=== PATIENT | female | born 1970 | race Caucasian/White ===

== ENCOUNTER → 2019-09-07 17:52 | Outpatient (CLI) | payer OTHER, SELFPAY ==
--- NOTE | ~2019-09-07 | MM_ITS ---
EXAMINATION: MM screening [facility] BI w adalgisa HISTORY: Screening mammogram TECHNIQUE: Craniocaudal and mediolateral oblique 3-D tomosynthesis images were obtained and synthetic 2-D images were generated. CAD analysis was submitted and interpreted. COMPARISON: Comparison to multiple prior studies sequentially, with oldest reviewed study dated 09/2013. BREAST PARENCHYMAL COMPOSITION: The breasts are heterogenously dense, which may obscure small masses FINDINGS: There is no evidence of suspicious mass, calcification, or architectural distortion to sugg est malignancy in either breast. There has been no suspicious interval change. IMPRESSION: 1. No mammographic evidence of malignancy. 2. Recommend routine screening mammography in one year. BI-RADS Category 1: Negative Reviewed, dictated and finalized at location A.
== END ==
PROVIDERS: Visit Provider Obstetrics & Gynecology
DX: Z12.31 Encounter for screening mammogram for malignant neoplasm of breast (principal)
CPT/HCPCS: 77063; 77067

== ENCOUNTER → 2020-11-03 15:32 | Outpatient (CLI) | payer OTHER, SELFPAY ==
--- NOTE | ~2020-11-03 | MM_ITS ---
EXAMINATION: MM screening [facility] BI w adalgisa HISTORY: Screening mammogram TECHNIQUE: Craniocaudal and mediolateral oblique 3-D tomosynthesis images were obtained and synthetic 2-D images were generated. CAD analysis was submitted and interpreted. COMPARISON: 08/09/2019, 08/05/2018, 05/06/2017 BREAST PARENCHYMAL COMPOSITION: The breasts are heterogeneously dense, which may obscure small masses . FINDINGS: There is no evidence of suspicious mass, calcification, or architectural distortion to sugg est malignancy in either breast. There has been no suspicious interval change. IMPRESSION: 1. No mammographic evidence of malignancy. 2. Recommend routine screening mammography in one year. BI-RADS Category 1: Negative Reviewed, dictated and finalized at location A.
== END ==
PROVIDERS: Visit Provider Obstetrics & Gynecology
DX: Z12.31 Encounter for screening mammogram for malignant neoplasm of breast (principal)
CPT/HCPCS: 77063; 77067

== ENCOUNTER 2021-04-12 01:45 | Day surgery (SDC) | payer OTHER, SELFPAY ==
[2021-04-04 11:56] VITALS: BMI 25.1
--- NOTE | 2021-04-11 09:35 | WPDANESEPPF ---
Anes - Initial Pre Proc Eval Procedure: Operation Date: 04/12/21 07:30 Proposed Procedures p Screening Colonoscopy - Adrian Garcia MD Date/Time: 04/11/21 09:35 Surgeon: Adrian Garcia MD Pre Op Diagnosis: neoplasm screening Patient Data Age: 51 Gender: F Height: 1.78 m Weight: 79.5 kg Allergies Allergy/AdvReac Type Severity Reaction Status Date / Time No Known Allergies Allergy Unknown Verified 04/12/21 06:17 Home Medications Medication Instructions Recorded Confirmed Type zhaogqqsle-nvxbokhfrbadp-inbt 1 cap PO Q4-6H PRN 04/04/21 04/04/21 History [Fioricet] diclofenac sodium 150 mg PO DAILY 04/04/21 04/04/21 History escitalopram oxalate 10 mg PO DAILY 04/04/21 04/04/21 History estradiol 1 mg PO DAILY 04/04/21 04/04/21 History etanercept [Enbrel] 50 mg SUBCUT WEEKLY 04/04/21 04/04/21 History hydroxychloroquine 200 mg PO DAILY 04/04/21 04/04/21 History sulfasalazine 1,000 mg PO BID 04/04/21 04/04/21 History Patient hx anesthesia problems: none Family hx anesthesia problems: none Results Review: All pre-operative results and documents have been reviewed as part of the pre-operative evaluation. [facility] Past Medical History Medical History (Updated 04/11/21 @ 15:22 by Adrian Garcia MD) History of ulcer disease Rheumatoid arthritis Social History Social History Smoking status: Never smoker Alcohol intake: current Drinks per week: 1 Alcohol use details: occasional 2x month Substance use: never Substance use type: does not use Living arrangements: with family Additional living arrangements comments: lives with spouse Spiritual care concerns: No Anes - Eval Final PreProcedure Day of Procedure 04/11/21 09:35 Patient weight: overweight Heart: regular rate and rhythm Lungs: clear to auscultation and normal air movement Airway: Mallampati scale class II Neurological: alert and oriented Last oral intake: >/= 8 hours ASA classification: II Emergent: no Anesthetic plan: proceed Anesthesia type and monitoring: general GIVS and standard monitoring Results Review: All pre-operative results and documents have been reviewed as part of the pre-operative evaluation. Informed Consent: The patient's anesthetic plan and its attendant risks and benefits were discussed with the patient/family/POA. Questions were solicited and answers provided to the satisfaction of the patient/family/POA.
--- NOTE | 2021-04-11 15:21 | PM.HPGS ---
History of Present Illness History of Present Illness Consent: Risks, benefits, and alternatives have been discussed and questions answered. Patient agrees to proceed with procedure. Chief complaint: neoplasm screening Narrative: Maggie Ramos is a 51 year old female referred for colon cancer screening Review of Systems Review of Systems: All systems reviewed & are unremarkable except as noted in HPI and below PMFSH Past Medical History Medical History History of ulcer disease Rheumatoid arthritis Social History Social History Smoking status: Never smoker Alcohol intake: current Drinks per week: 1 Alcohol use details: occasional 2x month Substance use: never Substance use type: does not use Living arrangements: with family Additional living arrangements comments: lives with spouse Spiritual care concerns: No Meds Home Medications and Allergies Home Medications Medication Instructions Recorded Confirmed Type hyqkfrywzm-edgsfmvdljcyp-tijc 1 cap PO Q4-6H PRN 04/04/21 04/04/21 History [Fioricet] diclofenac sodium 150 mg PO DAILY 04/04/21 04/04/21 History escitalopram oxalate 10 mg PO DAILY 04/04/21 04/04/21 History estradiol 1 mg PO DAILY 04/04/21 04/04/21 History etanercept [Enbrel] 50 mg SUBCUT WEEKLY 04/04/21 04/04/21 History hydroxychloroquine 200 mg PO DAILY 04/04/21 04/04/21 History sulfasalazine 1,000 mg PO BID 04/04/21 04/04/21 History Allergies Allergy/AdvReac Type Severity Reaction Status Date / Time No Known Allergies Allergy Unknown Verified 04/12/21 06:17 Exam Resp: Auscultation: clear to auscultation bilaterally Cardio: Rate: regular rate Rhythm: regular rhythm GI: GI Palp: Yes Soft to palpation and No Tenderness to palpation present (GI) Assessment and Plan Assessment and plan (1) Colon cancer screening: Code(s): Z12.11 - Encounter for screening for malignant neoplasm of colon Status: Acute Assessment and Plan: Colonoscopy with possible biopsy or polypectomy or cautery or injection of substances.
[2021-04-12 06:17] VITALS: BP 122/85; PULSE 95; RESP 18; TEMP 36.1; O2SAT 96
[2021-04-12] MEDS: LACTATED RINGERS 1,000 ML 150 ML IV CONT (06:34)
[2021-04-12 07:48] VITALS: BP 122/96; PULSE 74; RESP 20; O2SAT 100
[2021-04-12 07:58] VITALS: BP 119/83; PULSE 75; RESP 19; O2SAT 100
[2021-04-12 08:08] VITALS: BP 129/88; PULSE 69; RESP 22; O2SAT 100
== END 2021-04-12 08:20 | disposition home or self-care (01) ==
PROVIDERS: PCP Physician Assistant; Visit Provider Internal Medicine Gastroenterology
PROC: 0DJD8ZZ Inspection of Lower Intestinal Tract, Via Natural or Artificial Opening Endoscopic (ICD-10-PCS; CPT 45378; principal; 2021-04-12 07:30)
DX: Z12.11 Encounter for screening for malignant neoplasm of colon (principal); D12.8 Benign neoplasm of rectum; M06.9 Rheumatoid arthritis, unspecified
CPT/HCPCS: 45385; 88305; J2704; J7120

== ENCOUNTER → 2022-02-05 13:47 | Outpatient (CLI) | payer OTHER, SELFPAY ==
--- NOTE | ~2022-02-05 | MM_ITS ---
EXAMINATION: MM screening [facility]iel BI w adalgisa HISTORY: Screening mammogram TECHNIQUE: Craniocaudal and mediolateral oblique 3-D tomosynthesis images were obtained and synthetic 2-D images were generated. CAD analysis was submitted and interpreted. COMPARISON: 11/03/2020, 09/07/2019, 08/05/2018 bilateral screening mammogram examinations BREAST PARENCHYMAL COMPOSITION: The breasts are heterogeneously dense, which may obscure small masses . FINDINGS: There is no evidence of suspicious mass, calcification, or architectural distortion to sugg est malignancy in either breast. There has been no suspicious interval change. IMPRESSION: 1. No mammographic evidence of malignancy. 2. Recommend routine screening mammography in one year. BI-RADS Category 1: Negative Reviewed, dictated and finalized at location A.
== END ==
PROVIDERS: PCP Physician Assistant; Visit Provider Obstetrics & Gynecology
DX: Z12.31 Encounter for screening mammogram for malignant neoplasm of breast (principal)
CPT/HCPCS: 77063; 77067

== ENCOUNTER → 2023-06-03 15:46 | Outpatient (CLI) | payer OTHER, SELFPAY ==
--- NOTE | ~2023-06-03 | MM_ITS ---
EXAMINATION: MM screening [facility]iel BI w adalgisa HISTORY: Screening TECHNIQUE: Craniocaudal and mediolateral oblique 3-D tomosynthesis images were obtained and synthetic 2-D images were generated. CAD analysis was submitted and interpreted. COMPARISON: Comparison to multiple prior studies sequentially, with oldest reviewed study dated 04/24. BREAST PARENCHYMAL COMPOSITION: The breasts are heterogeneously dense, which may obscure small masses . FINDINGS: There is no evidence of suspicious mass, calcification, or architectural distortion to sugg est malignancy in either breast. There has been no suspicious interval change. IMPRESSION: 1. No mammographic evidence of malignancy. 2. Recommend routine screening mammography in one year. BI-RADS Category 1: Negative Reviewed, dictated and finalized at location A. 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
== END ==
PROVIDERS: PCP Obstetrics & Gynecology; Visit Provider Obstetrics & Gynecology
DX: Z12.31 Encounter for screening mammogram for malignant neoplasm of breast (principal)
CPT/HCPCS: 77063; 77067

== ENCOUNTER 2024-06-05 15:51 | Outpatient (CLI) | payer OTHER, SELFPAY ==
--- NOTE | ~2024-06-05 | MM_ITS ---
EXAMINATION: MM screening [facility]iel BI w adalgisa HISTORY: Screening TECHNIQUE: Craniocaudal and mediolateral oblique 3-D tomosynthesis images were obtained and synthetic 2-D images were generated. CAD analysis was submitted and interpreted. COMPARISON: Comparison to multiple prior studies sequentially, with oldest reviewed study dated 04/24. BREAST PARENCHYMAL COMPOSITION: Dense: The breasts are extremely dense, which lowers the sensitivity of mammography. FINDINGS: There is no evidence of suspicious mass, calcification, or architectural distortion to sugg est malignancy in either breast. There has been no suspicious interval change. IMPRESSION: 1. No mammographic evidence of malignancy. 2. Recommend routine screening mammography in one year. BI-RADS Category 1: Negative Reviewed, dictated and finalized at location B. 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
== END 2024-06-05 15:52 | disposition home or self-care (01) ==
LOC: MICIMG 15:53
PROVIDERS: PCP Physician Assistant; Visit Provider Obstetrics & Gynecology
DX: Z12.31 Encounter for screening mammogram for malignant neoplasm of breast (principal)
CPT/HCPCS: 77063; 77067

== ENCOUNTER 2024-09-16 19:58 | Emergency (ER) | payer OTHER, SELFPAY ==
[2024-09-16 20:00] VITALS: BP 107/73; PULSE 111; RESP 15; TEMP 36.4; O2SAT 100
--- OUTSIDE RECORDS SUMMARY | 2024-09-16 20:01 | XMS_ITS | Encounter Summary ---
Author Organization [facility] Address [address] [place] [address] Phone Care Team Providers Care Buckle Strap Drum Operator Name Role Phone Aniya Kennedy Primary Care Pr ovider Reason for Referral * Consultation (Routine) - Pending Review Specialty Diagnoses / Procedures Referred By Demian t Referred To Contact Vascular Surgery Diagnoses Preop examination Lumbar radiculopathy Junaid Anderson MD [address] [facility] [place] [address] Phone: tel: fax: Junaid Christopher MD [address] [facility] [id number] [place] [address] Phone: tel: fax: Referral ID Status Reason Start Date Expiration Date Visits Requested Visits Authorized [id number] Pending Review Specialty Services Required 09/15/2024 10/15/2025 1 1 Question Answer Please select the performing region: [facility] (All Locations) [[id number]] To provider: JUNAID CHRISTOPHER [[id number]] # of visits: 1 Comments Referral for preop examination. Pt scheduled for L5-S1 ALIF on 11/03 at [facility] Reason for Visit * Reason Onset Date Comments Spinal Surgery 09/02/2024 Encounter Details Date Type Department Care Team (Late st Contact Info) Description 09/02/2024 Telephone [facility] Orthopaedic Surgery [address] [facility] 6[address] [place] [address] [place] [address] Junaid Anderson MD [address] [facility] [address] [place] [address] Spinal Surgery Social History Tobacco Use Types Packs/Day Years Used Date Smoking Tobacco: Never AUDIT-C Answer Date Recorded Q1: How often do you have a drink containing alc ohol? 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 Pt aware that she will be called by vascular surgery to schedule preop appt. Info sent via zkipster as well. * Telephone Encounter - Tori Brian RN - 09/14/2024 5:58 PM CDT Spoke with pt today to confirm 11/[address] Christopher. Will confirm preop appts tomorrow. * Telephone Encounter - Tori Brian RN - 09/11/2024 5:40 PM CDT Spoke with pt today to discuss OR date with Dr. Anderson and vascular surgery. Informed her that I am waiting to confirm if surgery dates are available the week of 11/02. Contacted vascular surgery schedulers again today and am waiting to hear back. Left pt VM this evening informing her that I am still waiting to confirm vascular surgery availability week of 11/02. Informed her that I will contact her Saturday afternoon to confirm a surgery date. Apologized to pt for the delay. * Telephone Encounter - Marycarmen Wagner RN - 09/07/2024 1:12 PM CDT Returned call to patient from Saturday message left on vm. Pt is aware of the current date but was hoping for a sooner one. She was reminded about the coordination with another surgeon and that it can be difficult to get sooner dates. Informed her the message would be given to Tori to review. She v erbalized understanding. * Telephone Encounter - Tori Brian RN - 09/04/2024 4:27 PM CDT Left VM for pt informing her still waiting to confirm sooner surgery dates with vascular. Tentatively have her down for surgery on 11/17 at [facility]. Will follow up with pt on Sat when I return to discuss other possible OR dates. * Telephone Encounter - Tori Brian RN - 09/02/2024 5:45 PM CDT Spoke with pt offer possible OR date with vascular surgery assistance. Pt has daughter's college grad a few weeks after offered OR date. Working to coordinate other OR date in mid October if possible. Informed pt I'm waiting to confirm new dates with vascular surgery and will have an update for her before the end of the week. She is in agreement with plan. documented in this encounter Plan of Treatment Upcoming Encounters Date Type Department Care Team (Latest Contact Info) Description 11/03/2024 1:35 PM CDT Hospital Encounter [facility] [address] Room [address] [place] [address] Junaid Anderson MD [address] [facility] [address] [place] [id number] 11/03/2024 1:35 PM CDT - 11/03/2024 7:35 PM CDT Surgery [facility] [address] [place] [address] Junaid Anderson MD [address] [place] [address] Combo Monica/Candi- FUSION SPINAL - ANTERIOR LUMBAR/THORACIC WITH INSTRUMENTATION - NUVASIVE: L5-S1 anterior lumbar interbody fusion, L5-S1 posterior spinal fusion with instrumentation, autograft, allograft, bone morphogenic protein, spinal cord monitoring, cut to close: 4 hours total-Dr. Christopher 1 hour with approach, Dr. Anderson 3 hours Scheduled Procedures Name Priority Associated Diagnoses Date/Ti me FUSION SPINAL - ANTERIOR LUMBAR/THORACIC WITH INSTRUMENTATION - NUVASIVE Lumbar radiculopathy Spinal stenosis of lumbar region, unspecified whether neurogenic claudication present 11/03/2024 1:35 PM CDT FUSION SPINAL - POSTERIOR LUMBAR/THORACIC WITH INSTRUMENTATION Lumbar radiculopathy Spinal stenosis of lumbar region, unspecified whether neurogenic claudication present 11/03/2024 1:35 PM CDT BONE GRAFT WITH BONE MORPHOGENIC PROTEIN Lumbar radiculopathy Spinal stenosis of lumbar region, unspecified whether neurogenic claudication present 11/03/2024 1:35 PM CDT SPINAL CORD MONITORING Lumbar radiculopathy Spinal stenosis of lumbar region, unspecified whether neurogenic claudication present 11/03/2024 1:35 PM CDT LAPAROTOMY - SPINE EXPOSURE Lumbar radiculopathy Spinal stenosis of lumbar region, unspecified whether neurogenic claudication present 11/03/2024 1:35 PM CDT Scheduled Referrals Name Type Priority Associated Diagnoses Orde r Schedule Ambulatory referral to Vascular Surgery Outpatient Referral Routine Preop examination Lumbar radiculopathy 1 Occurrences starting 09/15/2024 until 09/15/2025 documented as of this encounter Visit Diagnoses Diagnosis Preop examination- Primary Unspecified pre-operative examination Lumbar radiculopathy Thoracic or lumbosacral neuritis or radiculitis, unspecified Lumbar radiculopathy Thoracic or lumbosacral neuritis or radiculitis, unspecified Spinal stenosis of lumbar region Lumbar radiculopathy Thoracic or lumbosacral neuritis or radiculitis, unspecified Spinal stenosis of lumbar region, unspecified whether neurogenic claudication present documented in this encounter Care Teams Buckle Strap Drum Operator Relationship Specialty Start Date End Date Aniya Kennedy PA PCP - General Physician Cloth Finishing Range Operator Chief 07/17/23 documented as of this encounter
--- OUTSIDE RECORDS SUMMARY | 2024-09-16 20:01 | XMS_ITS | Referral Summary ---
Author Organization [facility] [address] Address [address] [place] [id number] Care Team Providers Care Industrial Design Engineer Name Role Phone CarlyleVasile molinayandy LIN Primary Care Pr ovider Encounters Date Type Department Care Team Description 09/16/2024 7:15 PM CDT Office Visit [facility] at [address] [phone] Diane Courtney NP Nausea and vomiting, unspecified vomiting type (Primary Dx); Dizziness; Lightheaded 09/16/2024 Telephone [facility] Surgery [address] 1 [place] [address] Navi Christopher MD 09/02/2024 Telephone [facility] Orthopaedic Surgery [address] [address] 6th [place] [address] [place] [address] Navi Anderson MD Spinal Surgery 08/27/2024 8:30 AM STATE ARCHIVIST - 08/27/2024 11:59 PM STATE ARCHIVIST Hospital Encounter [facility] [address] [place] [address] [address] [place] [address] Lumbar radiculopathy Discharge Disposition: Discharge to home or self care 08/27/2024 9:10 AM STATE ARCHIVIST Office Visit [facility] Orthopaedic Surgery [address] [place] [address] Medical Office Building 4 [address] [place] [phone] Navi Anderson MD Lumbar radiculopathy (Primary Dx) 08/13/2024 11:20 AM STATE ARCHIVIST Ancillary Procedure [facility] Orthopaedic Surgery [address] [facility] [address] 6th [place] [address] [place] [address] 08/13/2024 11:30 AM STATE ARCHIVIST Procedure visit [facility] Orthopaedic Surgery [address] 6th [place] [address] [place] [address] Frederick Avery MD Trochanteric bursitis of left hip 08/11/2024 Orders Only [facility] Orthopaedic Surgery [address] 1st [address] [place] [address] Frederick Avery MD Trochanteric bursitis of left hip (Primary Dx) 08/11/2024 Telephone [facility] Orthopaedic Surgery [address] 1st [address] [place] [address] Frederick Avery MD 07/27/2024 1:10 PM STATE ARCHIVIST Clinical Support [facility] [address] [place] [address] Medical Office Building 2 [address] [place] [id number] Postmenopausal (Primary Dx); Screening for osteoporosis 07/27/2024 1:52 PM STATE ARCHIVIST - 07/27/2024 11:59 PM STATE ARCHIVIST Hospital Encounter [facility] [address] [place] [address] [address] [place] [phone] Bryanna Day MD Lumbar radiculopathy Discharge Disposition: Discharge to home or self care 07/22/2024 Telephone Radiology - [address] [facility] [address] [place] [address] Luisa Acosta, 07/16/2024 8:30 AM STATE ARCHIVIST - 07/16/2024 11:59 PM STATE ARCHIVIST Hospital Encounter [facility] [address] [place] [address] [address] [place] [phone] Lumbar spine pain Discharge Disposition: Discharge to home or self care 07/16/2024 8:50 AM STATE ARCHIVIST Office Visit [facility] Orthopaedic Surgery [address] [place] [address] Medical Office Building [address] [place] [phone] Navi Anderson MD Lumbar spine pain (Primary Dx); Lumbar radiculopathy; Trochanteric bursitis of left hip; Screening for osteoporosis 07/08/2024 12:36 PM STATE ARCHIVIST - 07/08/2024 11:59 PM STATE ARCHIVIST Hospital Encounter [facility] [address] [place] [address] Discharge Disposition: Discharge to home or self care from Last 3 Months Allergies No known active allergies Medications diclofenac DR (VOLTAREN) 75 mg EC tablet Take 1 tablet (75 mg total) by mouth 2 (two) times a day 07/03/2023 Active EnbreL SureClick 50 mg/mL (1 mL) pen injector 05/01/2023 Active hydroxychloroqu ine (PLAQUENIL) 200 mg tablet Take 1 tablet (200 mg total) by mouth daily 07/02/2023 Active sulfaSALAzine (AZULFIDINE) 500 mg tablet Take 2 tablets (1,000 mg total) by mouth 2 (two) times a day 05/15/2023 Active Mounjaro 10 mg/0.5 mL pen injector 07/12/2023 Active omeprazole (PriLOSEC) 40 mg capsule Take 1 capsule (40 mg total) by mouth daily Active cetirizine (ZyrTEC) 10 mg tablet Take by mouth Active Hospital, Clinic, or Other Facility Administered Medication Ordered Dose Route Frequency Start Date End Date Status ondansetron ODT (ZOFRAN-ODT) disintegrating tablet 4 mgIndications:Nausea and vomiting, unspecified vomiting type 4 mg oral Once 09/16/2024 09/17/2024 Active Active Problems Problem Noted Date Diagnosed Date Lumbar radiculopathy 09/15/2024 Spinal stenosis of lumbar region 09/15/2024 Epigastric pain 07/16/2024 Herpes zoster 07/16/2024 Acute upper respiratory infection 05/07/2023 Acute bronchitis 03/14/2023 Neck pain 04/21/2022 Rheumatoid arthritis involvi ng both hands with positive rheumatoid factor 01/14/2018 Rheumatoid arthritis 01/06/2004 Social History Tobacco Use Types Packs/Day Years Used Date Smoking Tobacco: Never Tobacco Cessation:Counseling Given: Not Answered AUDIT-C Answer Date Recorded Q1: How often do you have a drink containing alc ohol? 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 Not on file Last Filed Vital Signs Vital Sign Reading Time Taken Comments Blood Pressure 124/68 09/16/2024 7:18 PM CDT Pulse 93 09/16/2024 7:18 PM CDT Temperature 36.4 C (97.5 F) 09/16/2024 7:18 PM CDT Respiratory Rate 28 09/16/2024 7:18 PM CDT Oxygen Saturation 98% 09/16/2024 7:18 PM CDT Inhaled Oxygen Concentration - - Weight 75.3 kg (166 lb) 07/16/2024 9:05 AM STATE ARCHIVIST Height 175.3 cm (5' 9 ) 07/16/2024 9:05 AM STATE ARCHIVIST Body Mass Index 24.51 07/16/2024 9:05 AM STATE ARCHIVIST Plan of Treatment Upcoming Encounters Date Type Department Care Team (Latest Contact Info) Description 11/03/2024 1:35 PM CDT Hospital Encounter [facility] Operating Room [address] [place] [address] Navi Anderson MD [address] [facility] [place] [address] 11/03/2024 1:35 PM CDT - 11/03/2024 7:35 PM CDT Surgery [facility] Operating Room [address] [place] [address] Navi Anderson MD [address] [facility] [place] [address] Lela Anderson/Candi- FUSION SPINAL - ANTERIOR LUMBAR/THORACIC WITH INSTRUMENTATION [...] neurogenic claudication present 11/03/2024 1:35 PM CDT Procedures Procedure Name Priority Date/Time Associated Diagnosis Comments POC INFLUENZA A/B, COVID-19 ANTIGEN Routine 09/16/2024 7:34 PM CDT Nausea and vomiting, unspecified vomiting type XR SCOLIOSIS AP LAT Schedule Routine, Read Routine (OP Routine) 08/27/2024 10:15 AM STATE ARCHIVIST Lumbar radiculopathy [place] ARTHROCENTESIS ASPIR&/INJ MAJOR JT/BURSA W/US Routine 08/13/2024 11:30 AM STATE ARCHIVIST Trochanteric bursitis of left hip POCUS ASP/INJ MAJOR JOINT Schedule Routine, Read Routine (OP Routine) 08/13/2024 11:17 AM STATE ARCHIVIST Trochanteric bursitis of left hip TRANSFORAMINAL EPIDURAL INJECTION LUMBAR SACRAL FIRST LEVEL BILATERAL Schedule Routine, Read Routine (OP Routine) 07/27/2024 3:07 PM STATE ARCHIVIST Lumbar radiculopathy DEXA AXIAL SKELETON BONE DENSITY 1 OR MORE SITES Schedule Routine, Read Routine (OP Routine) 07/27/2024 1:44 PM STATE ARCHIVIST Screening for osteoporosis XR SPINE LUMBAR COMPLETE 4 OR MORE VIEWS Schedule Routine, Read Routine (OP Routine) 07/16/2024 8:45 AM STATE ARCHIVIST Lumbar spine pain NEURO MR OUTSIDE REFERENCE Routine 07/08/2024 12:36 PM STATE ARCHIVIST from Last 3 Months Results * POC Influenza A/B, COVID-19 antigen (09/16/2024 7:34 PM CDT) Influenza A Ag, POC Negative Negative [facility] Influenza B Ag, POC Negative Negative [facility] COVID-19 Ag POC Presumptive Negative Presumptive Negative, Invalid [facility] Swab 09/16/2024 7:34 PM CDT us Diane Courtney NP POINT OF CARE TEST ORDERABLES Final Result Performing Organization Address City/State/[facility] Co de Phone Number [facility] [address] [place] [address] * XR Scoliosis 2 or 3 Views (08/27/2024 10:15 AM STATE ARCHIVIST) Anatomical Region Laterality Modality Spine N/A Computed Radiogr aphy 08/27/2024 11:3 1 AM STATE ARCHIVIST Impressions 08/27/2024 11:55 AM STATE ARCHIVIST 1. No scoliotic curvature or truncal balance of the spine. 2. Multilevel degenerative disc disease, up to severe at L5-S1 Dictated by: Lj Joshi M.D. The radiology attending physician has personally reviewed this study, and had reviewed and/or edited this written report and agrees with it. Electronically signed by: Butch Jackson D.O. Narrative 08/27/2024 11:55 AM STATE ARCHIVIST EXAMINATION: XR SCOLIOSIS AP AND LATERAL HISTORY: Spondylolisthesis COMPARISON: Lumbar spine radiograph 07/16/2024 FINDINGS: No truncal balance or pelvic obliquity. No significant scoliotic curvature. Vertebral body heights are maintained. Straightening of the cervical spine. Mild stepwise anterolisthesis of C3 on C4 and of C4 of C5. Multilevel degenerative disc disease, up to severe at L5-S1. Moderate lower lumbar facet arthropathy. Procedure Note JacksonButch amorDO - 08/27/2024 EXAMINATION: XR SCOLIOSIS AP AND LATERAL HISTORY: Spondylolisthesis COMPARISON: Lumbar spine radiograph 07/16/2024 FINDINGS: No truncal balance or pelvic obliquity. No significant scoliotic curvature. Vertebral body heights are maintained. Straightening of the cervical spine. Mild stepwise anterolisthesis of C3 on C4 and of C4 of C5. Multilevel degenerative disc disease, up to severe at L5-S1. Moderate lower lumbar facet arthropathy. IMPRESSION: 1. No scoliotic curvature or truncal balance of the spine. 2. Multilevel degenerative disc disease, up to severe at L5-S1 Dictated by: Lj Joshi M.D. The radiology attending physician has personally reviewed this study, and had reviewed and/or edited this written report and agrees with it. Electronically signed by: Butch Jackson D.O. Navi Anderson MD IMG XR PROCEDURES Final Result * IL ARTHROCENTESIS ASPIR&/INJ MAJOR JT/BURSA W/US (08/13/2024 11:30 AM STATE ARCHIVIST) Narrative Frederick Avery MD - 08/13/2024 11:30 AM STATE ARCHIVIST Frederick Avery MD 08/20/2024 12:29 AM Greater trochanteric bursa injection w/ Ultrasound Guidance Performed by: Frederick Avery MD Authorized by: Frederick Avery MD Greater Trochanteric Bursa Injection: Consent Given by: Patient Site marked: the procedure site was marked Timeout: prior to procedure the correct patient, procedure, and site was verified Verbal consent obtained?: Yes Prior to the start of the procedure, verbal verification by the procedure participant(s) confirmed (as applicable): corect patient idenity; correct site/side marked and visible; agreement on the procedure to be done; correct patient positioning; an accurate procedure consent form, relevant images and results correctly labeled and displayed; any safety precautions based on clinical history and/or medication use have been addressed.: Supporting Documentation: Indications: Therapeutic benefit Procedure Details: Site: Left Greater Trochanteric Bursa Prep: patient was prepped and draped in usual sterile fashion Patient position: Supine Needle Size: 25 G Ultrasound guidance: Yes Ultrasound approach: In-plane approach Ultrasound guidance used for: Pre-procedure marking and real-time guidance Sterile ultrasound techniques: Sterile gel and sterile probe covers were used Medications: 3 mL lidocaine 10 mg/mL (1 %); 40 mg triamcinolone 40 mg/mL Patient tolerance: Patient tolerated the procedure well with no immediate complications Frederick Avery MD IN CLINIC/BEDSIDE ORDERA BLES Edited Result - Final * POCUS ASP/INJ MAJOR JOINT (08/13/2024 11:17 AM STATE ARCHIVIST) Narrative [facility] - 08/13/2024 11:17 AM STATE ARCHIVIST This procedure was performed and interpreted by the provider. Please refer to the provider's procedure/OR operative note for results. Frederick Avery MD POCUS ORDERABLES Final R esult Performing Organization Address [facility] de Phone Number [facility] * IR Transforaminal Epidural Injection Lumbar Sacral First Level Bilateral (07/27/2024 3:07 PM STATE ARCHIVIST) Narrative [facility] - 07/27/2024 3:07 PM STATE ARCHIVIST The images from this study are not interpreted by Radiology. Please refer to the physician's procedure / OR operative note. us Navi Anderson MD IMG IR PROCEDURES Final Result Performing Organization Address [facility] Co de Phone Number [facility] * DEXA Axial Skeleton Bone Density Multi Site (07/27/2024 1:44 PM STATE ARCHIVIST) Anatomical Region Laterality Modality Body N/A Radiographic Anne ging Narrative 07/28/2024 2:27 PM STATE ARCHIVIST Patient Name: Maggie Truong Date of : 1970 Date of scan: 07/27/2024 Bone mineral density was performed on a [employer] Discovery Densitometer. Based on machine cross-calibration and precision studies the least significant changes of this densitometer is 0.024 g/cm2 at the spine, 0.020 g/cm2 at the total proximal femur, and 0.014g/cm2 at the forearm. HISTORY: This is a 54 y.o. postmenopausal female with a history of rheumatoid arthritis. She reports that she has never smoked. She does not have any smokeless tobacco history on file. Currently on treatment with calcium and vitamin D, previously treated with glucocorticoids, and current complaint of back pain and leg pain. INDICATIONS: Menopause status, screening for osteoporosis, and history of glucocorticoids use. FINDINGS: BONE MINERAL DENSITY OF THE LUMBAR SPINE Bone Mineral Density (BMD) of the lumbar spine was measured from L1-L4 and the average density was calculated to be 1.100 gm/cm2. This corresponds to a T-score (standard deviations from the mean of young adults) of 0.5. There is no previous study available for comparison. BONE MINERAL DENSITY OF THE PROXIMAL FEMUR Bone Mineral Density (BMD) of the left hip total was found to be 1.070 gm/cm2. This corresponds to a T-score standard deviations from the mean of young adults of 1.0. Femoral neck is 0.881 gm/cm2 with a T-score (standard deviations from the mean of young adults) of 0.3. There is no previous study available for comparison. SUMMARY: Bone mineral density is near the young adult normal mean with no increased risk for fracture. ADDITIONAL COMMENTS: Postmenopausal Women and Men Over 50: Diagnostic criteria: Osteoporosis: BMD at or below -2.5 T-score; Osteopenia (low bone mass): BMD between -1.0 and -2.5 T-score. If the patient has a history of a fragility fracture, a fracture that occurred with trauma equivalent to a fall from a standing position or less, then the diagnosis is osteoporosis regardless of bone density. The history and data sections of the bone mineral density scan were prepared by Corina Centeno(R) CBDT who is accredited by the International Society of Clinical Densitometry. The overall patient assessment and scan interpretation were performed by Ron Hand M.D. who is certified by the International Society of Clinical Densitometry. [id number] Navi Anderson MD IMG DXA PROCEDURE S Final Result * XR Spine Lumbar 4 or More Views (07/16/2024 8:45 AM STATE ARCHIVIST) Anatomical Region Laterality Modality Spine N/A Computed Radiogr aphy 07/16/2024 8:51 AM STATE ARCHIVIST Impressions 07/16/2024 8:51 AM STATE ARCHIVIST 1. Unchanged multilevel degenerative disc disease most pronounced and severe at L5-S1 with lower lumbar facet osteoarthritis. Electronically signed by: Evangelista Hall M.D. Narrative 07/16/2024 8:51 AM STATE ARCHIVIST EXAMINATION: XR SPINE LUMBAR 4 OR MORE VIEWS HISTORY: lower back pain FINDINGS: 4 view examination of the lumbar spine is read with comparison to lumbar spine MRI 04/27/2024. Alignment is normal without listhesis. No abnormal motion on flexion or extension. No compression fracture. Unchanged multilevel degenerative disc disease most pronounced and severe at L5-S1 with lower lumbar facet osteoarthritis. Procedure Note Evangelista Webb MD - 07/16/2024 EXAMINATION: XR SPINE LUMBAR 4 OR MORE VIEWS HISTORY: lower back pain FINDINGS: 4 view examination of the lumbar spine is read with comparison to lumbar spine MRI 04/27/2024. Alignment is normal without listhesis. No abnormal motion on flexion or extension. No compression fracture. Unchanged multilevel degenerative disc disease most pronounced and severe at L5-S1 with lower lumbar facet osteoarthritis. IMPRESSION: 1. Unchanged multilevel degenerative disc disease most pronounced and severe at L5-S1 with lower lumbar facet osteoarthritis. Electronically signed by: Evangelista Hall M.D. Navi Anderson MD IMG XR PROCEDURES Final Result * Neuro MR Outside Reference (07/08/2024 12:36 PM STATE ARCHIVIST) Impressions [facility] - 07/08/2024 12:36 PM STATE ARCHIVIST These images are for Reference purposes only and have not been reviewed by [facility] Radiology. There will be no report generated by a [facility] Radiologist. Narrative [facility] - 07/08/2024 12:36 PM STATE ARCHIVIST EXAMINATION: Images For Reference Purposes Only Navi Anderson MD IMG MRI PROCEDURE S Final Result [facility] from Last [address] [facility] CHOICE PL[facility] CHOICE PLUS Care Teams Industrial Design Engineer Relationship Specialty Start Date End Date Aniya Kennedy PA PCP - General Physician [place] Alarm Mechanic 07/17/23
--- OUTSIDE RECORDS SUMMARY | 2024-09-16 20:01 | XMS_ITS | Data Portability ---
Author Organization [facility], Main Office Address [address] [place] [address] Assessment No assessment recorded. Plan of Treatment Reminders Order Date Submit Date Provider Last Modified By Organization Details Last Modified Time Details Appointments None recorde d. Lab TSH + free T4, serum 023 11/21/19 [place] [address] [facility], [address], [place], [address], 3 12:06:37 CBC w/ auto diff 023 11/21/19 [place] [address] [facility], [address], [address], [place], [address], 3 12:06:37 lipid panel, serum 023 11/21/[address], 2022 Luis Murcia, [address], [place], [address], 3 12:06:37 HbA1c (hemogl obin A1c), blood 023 11/21/19 [place] [address] [facility], [address], [address], [place], [address], 3 12:06:37 Referral None recorde d. Procedures None recorde d. Surgeries None recorde d. Imaging None recorde d. Medication Orders None recorde d. Patient TargetsNo targets recorded. Patient InstructionsNo instructions recorded. Reason for Referral None Reported. Results Created Date Observation Date Name Description Value Unit Range Abnormal Flag Note LastModifiedBy Organization Detail LastModifiedTime 12/10/19 21 12/10/2020 HbA1c (hemo globi n A1c), blood hemoglobin A1C 5.2 % 4.8-5. 6 Predi abete s: 5.7 - 6.4 Diabe leonie: >6.4 Glyce noam contr ol for adult s with diabe leonie: <7.0 Not Available [facility] ([facility]) [address] [place], [address], 12/10/2020 09:11:27 12/10/19 21 12/10/2020 lipid panel , serum cholesterol, total 214 mg/dL 100-19 9 above high normal Not Available [facility] ([facility] [address] [place], [address], 12/10/2020 09:11:26 12/10/19 21 12/10/2020 lipid panel , serum triglyceride s 206 mg/dL 0-149 above high normal Not Available [facility] ([facility]) [address] [facility], [place], [address], 12/10/2020 09:11:26 12/10/19 21 12/10/2020 lipid panel , serum HDL cholesterol 46 mg/dL >39 Not Available [facility] [address] [place], [address], 12/10/2020 09:11:26 12/10/19 21 12/10/2020 lipid panel , serum VLDL cholesterol ervin 37 mg/dL 5-40 Not Available [facility] [address] [place], [address], 12/10/2020 09:11:26 12/10/19 21 12/10/2020 lipid panel , serum LDL chol calc ([facility]) 131 mg/dL 0-99 above high normal Not Available [facility] ([facility]) [address] [place], [address], 12/10/2020 09:11:26 12/10/19 21 12/10/2020 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 chol/HDL ratio 4.7 ratio 0.0-4. 4 above high normal T. Chol/ HDL Ratio Men Women 1/2 Avg.R isk 3.4 3.3 Avg.R isk 5.0 4.4 2X Avg.R isk 9.6 7.1 3X Avg.R isk 23.4 11.0 Not Available [facility] ([facility]) [address] [place], [address], 12/10/2020 09:11:26 12/10/19 21 12/10/2020 urina lysis compl ete, refle x cultu re specific gravity 1.006 1.005- 1.030 Not Available [facility] ([facility]) [address] [place], [address], 12/10/2020 09:11:26 12/10/19 21 12/10/2020 urina lysis compl ete, refle x cultu re pH 6.5 5.0-7. 5 Not Available [facility] ([facility]) [address] [place], [address], 12/10/2020 09:11:26 12/10/19 21 12/10/2020 urina lysis compl ete, refle x cultu re urine-color yellow yellow Not Available [facility] ([facility]) [address] [place], [address], 12/10/2020 09:11:26 12/10/19 21 12/10/2020 urina lysis compl ete, refle x cultu re appearance clear clear Not Available [facility] ([facility]) [address] [place], [address], 12/10/2020 09:11:26 12/10/19 21 12/10/2020 urina lysis compl ete, refle x cultu re WBC esterase negati ve negati ve Not Available [facility] ([facility]) [address] [place], [address], 12/10/2020 09:11:26 12/10/19 21 12/10/2020 urina lysis compl ete, refle x cultu re protein negati ve negati ve/tra ce Not Available [facility] ([facility]) [address] [place], [address], 12/10/2020 09:11:26 12/10/1912/10/2020 urina lysis compl ete, refle x cultu re glucose negati ve negati ve Not Available [facility] ([facility]) [address] [place], [address], 12/10/2020 09:11:26 12/10/19 21 12/10/2020 urina lysis compl ete, refle x cultu re ketones negati ve negati ve Not Available [facility] ([facility] [address] [place], [address], 12/10/2020 09:11:26 12/10/19 21 12/10/2020 urina lysis compl ete, refle x cultu re occult blood negati ve negati ve Not Available [facility] ([facility] [address] [place], [address], 12/10/2020 09:11:26 12/10/1912/10/2020 urina lysis compl ete, refle x cultu re bilirubin negati ve negati ve Not Available [facility] ([facility]) [address] [place], [address], 12/10/2020 09:11:26 06/18/20 21 12/10/2020 urina lysis compl ete, refle x cultu re urobilinogen ,semi-qn 0.2 mg/dL 0.2-1. 0 Not Available [facility] ([facility]) [address] [place], [address], 12/10/2020 09:11:26 12/10/19 21 12/10/2020 urina lysis compl ete, refle x cultu re nitrite, urine negati ve negati ve Not Available [facility] ([facility]) [address] [place], [address], 12/10/2020 09:11:26 12/10/1912/10/2020 urina lysis compl ete, refle x cultu re microscopic examination commen t Micro scopi c not indic ated and not perfo rmed. Not Available [facility] ([facility]) [address] [place], [address], 12/10/2020 09:11:26 12/10/1912/10/2020 urina lysis compl ete, refle x cultu re urinalysis reflex commen t This speci men will not refle x to a Urine Cultu re. Not Available [facility] ([facility]) [address] [place], [address], 12/10/2020 09:11:26 12/10/1912/10/2020 TSH + free T4, serum TSH 1.300 uIU/m L 0.450- 4.500 Not Available [facility] ([facility]) [address] [place], [address], 12/10/2020 09:11:26 12/10/1912/10/2020 TSH + free T4, serum T4,free(dire ct) 1.16 NG/dL 0.82-1 .77 Not Available [facility] ([facility] [address] [place], [address], 12/10/2020 09:11:26 12/14/19 21 12/13/2020 US, trans vagin al No observ ation record ed. [id number] , [place], [address], 08/22/2022 18:22:17 02/08/20 22 02/05/2022 MAMMO , scree sourav, digit al, bilat eral No observ ation record ed. [id number] [facility] [address], [place], [address], 08/22/2022 18:22:17 Result Notes None recorded. Problems Name Problem SNOMED Code Status Onset Date Resolution Date Notes Provider Name and Address Organization Details Recorded Time Herpes zoster 0189388 Active Not Available [facility] 3 18:21:01 Rheumatoid arthritis 12890298 Active Not Available [facility] 3 18:21:01 Epigastric pain 99928107 Active Not Available [facility] 3 18:21:01 Neck pain 82852548 Active 2021 Not Available [facility] 3 18:21:01 Acute bronchitis 05263113 Active 2022 DELIA Tolbert [address], [address] , [facility] [facility] [employer] 3 16:12:24 Acute upper respiratory infection 60867713 Active 2022 DELIA Tolbert [address], [address] , [employer] 3 13:46:18 Problem Notes None recorded. Procedures Surgical History Date Name Laterality Status Provider Name and Address Organization Details Recorded Time Hysterectomy completed Not Available [facility] 08/22/2022 18:20:15 Imaging Results Imaging Date Name Status LastModified by Organization Details LastModified Time 12/13/2020 US, transvaginal completed [id number] , [place], [address], 08/22/2022 18:22:17 02/05/2022 MAMMO, screening, digital, bilateral completed [id number] [facility] [address], [place], [address], 08/22/2022 18:22:17 Procedure Notes None recorded. Medical Equipment None Reported. Allergies No known drug allergies Medications Name Sig Start Date Stop Date Status Note LastModified by Organization Details LastModified Time cyclobenzap rine 10 mg tablet active Not Available Not Available Not Available sulfasalazi ne 500 mg tablet TAKE 2 TABLETS BY MOUTH TWICE DAILY active Not Available Not Available No t Available azithromyci n 250 mg tablet 12/07 completed Not Available Not Available Not Available ofloxacin 0.3 % eye drops 12/07 completed Not Available Not Available Not Available benzonatate 200 mg capsule 12/07 completed Not Available Not Available Not Available valacyclovi r 1 gram tablet TK 1 T PO TID 12/07 completed Not Available Not Available Not Available minocycline 100 mg capsule 12/07 completed Not Available Not Available Not Available meloxicam 15 mg tablet TK 1 T PO QPM 04/09 completed Not Available Not Available Not Available Tubersol 5 tub. unit/0.1 mL intradermal injection solution Inject 0.1 mL by intraderm al route. 04/06 completed Not Available Not Available Not Available prednisone 5 mg tablet active Not Available Not Available Not Available ciprofloxac in 250 mg tablet active Not Available Not Available Not Available omeprazole 40 mg capsule,del ayed release 12/07 completed Not Available Not Available Not Available butalbital- acetaminoph en-caffeine 50 mg-325 mg-40 mg tablet 12/07 completed Not Available Not Available Not Available prednisolon e acetate 1 % eye drops,suspe nsion 12/07 completed Not Available Not Available Not Available estradiol 1 mg tablet TAKE 1 TABLET BY MOUTH EVERY DAY active Not Available Not Available No t Available prednisone 1 mg tablet TK 2 TS PO D 12/07 completed Not Available Not Available Not Available benzonatate 100 mg capsule 12/07 completed Not Available Not Available Not Available cephalexin 500 mg capsule 12/07 completed Not Available Not Available Not Available tacrolimus 0.1 % topical ointment APPLY A THIN LAYER TO THE AFFECTED AREA TWICE DAILY FOR UP TO 4 WEEKS THEN 2 TIMES PER WEEK FOR UP TO 6 MONTHS active Not Available Not Available No t Available neomycin-po lymyxin-dex ameth 3.5 mg/mL-10,00 0 unit/mL-0.1 % eye drops active Not Available Not Available Not Available Alrex 0.2 % eye drops,suspe nsion 12/07 completed Not Available Not Available Not Available prednisone 50 mg tablet TAKE 1 TABLET BY MOUTH EVERY DAY FOR 5 DAYS 05/13 completed Not Available Not Available Not Available fluorometho lone 0.1 % eye drops,suspe nsion 12/07 completed Not Available Not Available Not Available omeprazole 20 mg capsule,del ayed release Take 1 capsule twice a day by oral route with meals. active Not Available Not Available No t Available diclofenac sodium 75 mg tablet,jameson yed release TAKE 1 TABLET BY MOUTH TWICE DAILY active Not Available Not Available No t Available montelukast 10 mg tablet active Not Available Not Available Not Available mupirocin 2 % topical ointment 12/07 completed Not Available Not Available Not Available estradiol 0.5 mg tablet TAKE 1 TABLET BY MOUTH DAILY active Not Available Not Available No t Available hydroxychlo roquine 200 mg tablet TAKE 1 TABLET BY MOUTH EVERY DAY active Not Available Not Available No t Available methylpredn isolone 4 mg tablets in a dose pack TK UTD AT START OF DAY 12/07 completed Not Available Not Available Not Available albuterol sulfate HFA 90 mcg/actuati on aerosol inhaler INHALE 2 PUFFS BY MOUTH EVERY 4 TO 6 HOURS NEEDED active Not Available Not Available No t Available doxycycline hyclate 20 mg tablet TAKE 1 TABLET BY MOUTH TWICE DAILY WITH FOOD 05/13 completed Not Available Not Available Not Available fluticasone propionate 50 mcg/actuati on nasal spray,suspe nsion active Not Available Not Available Not Available naproxen 500 mg tablet Take 1 tablet every day by oral route for 30 days. 12/07 completed Not Available Not Available Not Available amoxicillin 875 mg-potassiu m clavulanate 125 mg tablet Take 1 tablet every 12 hours by oral route. 05/13 completed Not Available Not Available Not Available tobramycin 0.3 %-dexametha sone 0.1 % eye drops,suspe nsion 12/07 completed Not Available Not Available Not Available escitalopra m 10 mg tablet TAKE 1 TABLET BY MOUTH EVERY DAY active Not Available Not Available No t Available cyclosporin e 0.05 % eye drops in a dropperette active Not Available Not Available Not Available Enbrel 50 mg/mL (1 mL) subcutaneou s syringe INJECT 1 ML UNDER SKIN Q WEEK 12/07 completed Not Available Not Available Not Available metronidazo le 1 % topical gel 12/07 completed Not Available Not Available Not Available Enbrel SureClick 50 mg/mL (1 mL) subcutaneou s pen injector inject once a week. active Not Available Not Available No t Available Calcium 600-D3 Plus (mag-zinc) takes one daily 12/07 completed Not Available Not Available Not Available Xiidra 5 % eye drops in a dropperette 12/07 completed Not Available Not Available Not Available Restasis MultiDose 0.05 % eye drops 12/07 completed Not Available Not Available Not Available Cequa 0.09 % eye drops in a dropperette INSTILL 1 DROP IN BOTH EYES TWICE DAILY active Not Available Not Available No t Available Eysuvis 0.25 % eye drops,suspe nsion SHAKE LIQUID AND INSTILL 1 DROP IN BOTH EYES TWICE DAILY active Not Available Not Available No t Available Paxlovid 300 mg (150 mg x 2)-100 mg tablets in a dose pack FOLLOW PACKAGE DIRECTION S 11/16 completed Not Available Not Available Not Available Mounjaro 7.5 mg/0.5 mL subcutaneou s pen injector INJECT 7.5 MG UNDER SKIN EVERY WEEK 08/20 completed Not Available Not Available Not Available Mounjaro 5 mg/0.5 mL subcutaneou s pen injector INJECT 5 MG UNDER THE SKIN EVERY WEEK DIRECTED 10/18 completed Not Available Not Available Not Available Mounjaro 10 mg/0.5 mL subcutaneou s pen injector INJECT 10 MG EVERY WEEK BY SUBCUTANE OUS ROUTE DIRECTED. 2023 active Not Available Not Available Not Avai lable Mounjaro 2.5 mg/0.5 mL subcutaneou s pen injector Inject 2.5 mg every week by subcutane ous route as directed. 11/20 completed Not Available Not Available Not Available Vitals Date Recorded Body mass index (BMI) Body height Oxygen saturation Oxygen saturation in Arterial blood by Pulse oximetry Heart rate Body temperature Body weight Systolic blood pressure Diastolic blood pressure Provider Name and Address Organization Details Last Updated DateTime 1 28.9 kg/m2 177.8 cm 99 % 99 % 87 /min 98 [degF] 94372.7 8 g 110 mm[Hg] 60 mm[Hg] Not Available [facility] 3 18:20:44 Date Recorded Body height Oxygen saturation Oxygen saturation in Arterial blood by Pulse oximetry Heart rate Respiratory rate Body temperature Systolic blood pressure Diastolic blood pressure Provider Name and Address Organization Details Last Updated DateTime 2 177.8 cm 98 % 98 % 78 /min 16 /min 97.2 [degF] 120 mm[Hg] 80 mm[Hg] Not Available [facility] 3 18:20:44 Date Recorded Body height Body weight Body temperature Heart rate Oxygen saturation Oxygen saturation in Arterial blood by Pulse oximetry Systolic blood pressure Diastolic blood pressure Provider Name and Address Organization Details Last Updated DateTime 3 177.8 cm 28232.5 2 g 97.8 [degF] 77 /min 98 % 98 % 116 mm[Hg] 74 mm[Hg] Brooklynn Sullivan, JYOTHI [facility] 3 15:05:40 Date Recorded Body mass index (BMI) Provider Name and Address Organization Details Last Updated DateTime 11/20/2022 24.1 kg/m2 DELIA Tolbert [address] [facility], [facility] [address], [place], [address], [facility] 11/20/2022 15:08:20 Social History Question Answer Notes LastModified by Organizat ion Details LastModified Time Tobacco Smoking Status Never Smoker Not Available [facility] 08/22/2022 18:20:10 What Is Your Level Of Alcohol Consumption? Occasional [id number] Information not available 08/22/2022 What Is Your Level Of Caffeine Consumption? Moderate [id number] Information not available 08/22/2022 How Much Tobacco Do You Chew? None [id number] Information not available 08/22/2022 In The 14 Days Before Symptom Onset, Have You Had Close Contact With A Laboratory-confir med COVID-19 While That Case Was Ill? No [id number] Information not available 08/22/2022 In The 14 Days Before Symptom Onset, Have You Had Close Contact With A Person Who Is Under Investigation For COVID-19 While That Person Was Ill? No [id number] Information not available 08/22/2022 Are You Currently Employed? Yes [email or web address] Information not available 11/16/2022 What Type Of Diet Are You Following? REGULAR [id number] Information not available 08/22/2022 Which Illicit Or Recreational Drugs Have You Used? None [id number] Information not available 08/22/2022 Do You Or Have You Ever Used E-cigarettes Or Vape? 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 No [id number] Information not available 08/22/2022 Do You Use Insect Repellent Routinely? No [id number] Information not available 08/22/2022 What Is Your Relationship Status? [id number] Information not available 08/22/2022 Do You Have Smoke And Carbon Monoxide Detectors In Your Home? Yes [id number] 0103 Information not available 08/22/2022 Do You Or Have You Ever Used Smokeless Tobacco? Never Used Smokeless Tobacco [id number] Information not available 08/22/2022 How Much Tobacco Do You Smoke? No [id number].[id number] 1999 Information not available 08/22/2022 Do You Use Any Illicit Or Recreational Drugs? No [id number] 1470 Information not available 08/22/2022 Do You Use Sunscreen Routinely? Yes [id number] Information not available 08/22/2022 Have You Recently Traveled Abroad? No [id number] 6993 Information not available 08/22/2022 Do You Have Any Dietary Restrictions? No [id number] Information not available 08/22/2022 Do You Or Have You Ever Used Any Other Forms Of Tobacco Or Nicotine? No [id number].[id number] 8061 Information not available 08/22/2022 Sex: Unknown Functional Status Question Answer Note LastModified by Organizat ion Details LastModified Time What is your exercise level? Moderate [id number] Information not available 08/22/2022 Mental Status None recorded. Family History Relationship Description Onset Age of this Age Resolved Age Notes LastModified by Organization Details LastModified Time Father General health good [id number] Not available 08/22/2022 18:20:16 Medical History Condition Response ARTHRITIS Y HEADACHES/MIGRAINES Y BREAST PROBLEMS Y SKIN PROBLEMS Y BACK / NECK PROBLEMS Y SLEEP DISORDER Y Gynecological History Statement/Question Response Abnormal Pap N Date of Last Pap 01/31/2015 Date of Last Mammogram Current Control Method Hysterectom y Sexually Active? Y Obstetrics History GPAL:G 0 P 0 0 0 0 Immunizations Vaccine Type Date Status Note Provider Nam e and Address Organization Details Recorded Time TST-PPD intradermal 1 completed Not Available [facility] 08/22/2022 18:22:13 influenza, unspecified formulation 5 completed Not Available [facility] 08/22/2022 18:22:13 Past Encounters Encounter ID Performer Location Encounter Start Date Encounter Closed Date Diagnosis/Indication Diagnosis SNOMED-CT Code Diagnosis ICD10 Code Diagnosis Note [id number] [facility] [address] [facility], [address] [place] [address] 12/07/2020 00:00:00 12/21/2020 17:53:03 [id number] [facility] [address], [address] [place] [address] 04/09/2022 00:00:00 04/21/2022 22:09:39 [id number] DELIA Tolbert [facility] [address], [address] [place] [address] 11/20/2022 14:56:56 11/20/2022 15:41:29 Adult health examination 846690003 Z00.00 well exam completed. routine labs ordered that Rheum does not check Cholesterol screening 27 7488435 Z13.220 Diabetes m ellitus screening 534695766 Z13.1 Thyroid di sorder screening 817507381 Z13.29 Long-term drug therapy 996477882 Z79.899 Rheumatoid arthritis 698 [address] M06.9 stable on medication from specialist . Health Concerns Section Related Observation LastModified by Organization Detai ls LastModified Time None Recorded Concern Status LastModified by Organization Details LastModified Time None Recorded Advance Directives Directive None Recorded Payers Encounter Date Sequence Insurance Name Policy Number Policy Diaz Covered Member ID Diaz Member ID Guarantor Name 11/20/2022 1 VENETIE [employer] ([employer]) [id number] Justin Talbot Richard [id number] Maggie S Richard Notes Date Note Type Note Provider Name and Address Organization Details Recorded Time 12/07/2020 text/html Anxiety/Depressi onRep orted bypatient.Severity:de nies suicidal ideations; able to maintain relationships; does not interfere with activities of daily living Context:no major life stressors Associated Symptoms:denies homicidal ideations; no significant weight gain; no significant weight loss; no visual/auditory hallucinations; no delusions; no shortness of breath; mood good; no anxiety; no crying spells; no panic; no isolation; sleeping well; appetite good; energy good; no apathy; maintaining functionality Notes:Taking lexapro 10mg. Doing well, no complaints.Generic HPI TemplateReported bypatient.Notes:Pt had Rheumatoid arthritis and follows with specialist. Sees gynecology and Dr. Allen w/ rheumatology regularly. States she is doing well w/ no complaints. 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 Currently perimenopausal, hot flashes, using estradiol w/ gynecology. States that she feels very bloated all of the time. Also follows w/ ophthalmology d/t frequent dry eye. Uses ointment and mask nightly.Reflux/GERDRe ported bypatient.Symptomsasy mptomatic; no difficulty swallowing; no pain swallowing; no postprandial pain Severity:improving Context:non-smoker; no drug/alcohol abuse; no drug alcohol withdrawal; not related to food/drink Associated Symptoms:no frequent coughing; no feeling of fullness/mass in throat; no hoarseness; no food getting stuck; no belching/burping; no nausea; no vomiting; not vomiting blood; no regurgitation; no shortness of breath; no chest pain; no heartburn; no difficulty swallowing; no pain when swallowing; no bad taste; no decreased appetite; no weight loss; no black/tarry stools; no fatigue; no throat pain; no dental erosion; no bloating; no early satiety; no halitosisNotes:Asympt omatic, not using omeprazole at this time. Not Available [employer] 12/21/2020 17:53:03 04/09/2022 text/html NeckReported bypatient.[facility] Quality:aching; numbness left anterior shoulder, stopped at biceps area Severity:no pain (now) Duration:date of onset: (2 week); 10 days Timing:acute Context:cannot identify Alleviating Factors:heat Aggravating Factors:worse in the morning Associated Symptoms:no weakness; no tingling; no swelling; no redness; no warmth; no ecchymosis; no catching/locking; no popping/clicking; no buckling; no grinding; no instability; no radiation down arm; no drainage; no fever; no chills; no weight loss; no change in bowel/bladder habits;numbness Previous Surgery:none Prior Imaging:none Previous Injections:none Previous PT:none Work Related:noNotes:She went to get a massage on the and they told her she had a knot in her L shoulder/back and said that it could radiate to her neck. Not Available [employer] 04/21/2022 22:09:39 11/20/2022 text/html Generic HPI TemplateReported bypatient.Notes:pt does have Rheumatoid arthritis and sees Rheum for this management. on medication.she has been losing weight on mounjaro therapy as well. nearly 40 pounds weight loss since feb 2022 here for wellnessno complaints today DELIA Tolbert [address] [facility], [facility] [address], [place], [address], [employer] 11/20/2022 17:52:01 OBGyn Episode No OBEpisode recorded.
--- OUTSIDE RECORDS SUMMARY | 2024-09-16 20:01 | XMS_ITS | Clinical Summary ---
Author Organization [facility] [address] Address [address] [place] [phone] Care Team Providers Care Television News Anchor Name Role Phone AbelinobandarAniya Primary Care Pr ovider Allergies No known active allergies Medications diclofenac [...] positive rheumatoid factor 01/14/2018 Rheumatoid arthritis 01/06/2004 Encounters Date Type Department Care Team Description 09/16/2024 7:15 PM CDT Office Visit [facility] Care at [address] [address] Diane Courtney NP Nausea and vomiting, unspecified vomiting type (Primary Dx); Dizziness; Lightheaded 09/16/2024 Telephone [facility] [address] [facility] Floor 1 [place] [address] Navi Christopher MD 09/02/2024 Telephone [facility] [address] [place] [address] 6th [place] [address] [place] [address] Navi Anderson MD Spinal Surgery 08/27/2024 9:10 AM OFFICE CLINICIAN Office Visit [facility] [address] [place] [address] Medical Office Building 4 [address] [place] [address] Navi Anderson MD Lumbar radiculopathy (Primary Dx) 08/27/2024 8:30 AM OFFICE CLINICIAN - 08/27/2024 11:59 PM OFFICE CLINICIAN Hospital Encounter [id number] [address] [place] [address] [address] [place] [address] Lumbar radiculopathy Discharge Disposition: Discharge to home or self care 08/13/2024 11:30 AM OFFICE CLINICIAN Procedure visit [facility] [address] [place] [address] 6th [place] [address] [place] [address] Frederick Avery MD Trochanteric bursitis of left hip 08/13/2024 11:20 AM OFFICE CLINICIAN Ancillary Procedure [facility] [address] [place] [address] 6th [place] [address] [place] [address] 08/11/2024 Orders Only [facility] [address] 1st Floor [address] [place] [address] Frederick Avery MD Trochanteric bursitis of left hip (Primary Dx) 08/11/2024 Telephone [facility] [address] [facility] 1st Floor [address] [place] [address] Frederick Avery MD 07/27/2024 1:52 PM OFFICE CLINICIAN - 07/27/2024 11:59 PM OFFICE CLINICIAN Hospital Encounter [id number] [address] [place] [address] [address] [place] [address] Bryanna Day MD Lumbar radiculopathy Discharge Disposition: Discharge to home or self care 07/27/2024 1:10 PM OFFICE CLINICIAN Clinical Support [facility] [address] [place] [address] Medical Office Building 2 [address] [place] [address] Postmenopausal (Primary Dx); Screening for osteoporosis 07/22/2024 Telephone Radiology - [address] [facility] [address] [place] [address] Luisa Acosta, 07/16/2024 8:50 AM OFFICE CLINICIAN Office Visit [facility] [address] [place] [address] Medical Office Building 4 [address] [place] [address] Navi Anderson MD Lumbar spine pain (Primary Dx); Lumbar radiculopathy; Trochanteric bursitis of left hip; Screening for osteoporosis 07/16/2024 8:30 AM OFFICE CLINICIAN - 07/16/2024 11:59 PM OFFICE CLINICIAN Hospital Encounter [id number] [address] [place] [address] [address] [place] [phone] Lumbar spine pain Discharge Disposition: Discharge to home or self care 07/08/2024 12:36 PM OFFICE CLINICIAN - 07/08/2024 11:59 PM OFFICE CLINICIAN Hospital Encounter [facility] [address] [place] [address] Discharge Disposition: Discharge to home or self care from Last 3 Months Surgical History Surgery Date Site/Laterality Comments HYSTERECTOMY 06/24/2011 - 06/23/2012 FL UPPER GI AIR CONTRAST W KUB 07/27/2024 Bilateral Medical History Medical History Date Comments Anemia Arthritis Rheumatoid arthritis (HCC) Peptic ulceration Social History Tobacco Use Types Packs/Day Years [...] on file Legal Sex Female 1:45 AM OFFICE CLINICIAN Gender Identity Not on file Sexual Orientation Not on file 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 Not on file Obstetrics History Last Filed Vital Signs Vital Sign Reading Time Taken Comments Blood Pressure 124/68 09/16/2024 7:18 PM CDT Pulse 93 09/16/2024 7:18 PM CDT Temperature 36.4 C (97.5 F) 09/16/2024 7:18 PM CDT Respiratory Rate 28 09/16/2024 7:18 PM CDT Oxygen Saturation 98% 09/16/2024 7:18 PM CDT Inhaled Oxygen Concentration - - Weight 75.3 kg (166 lb) 07/16/2024 9:05 AM OFFICE CLINICIAN Height 175.3 cm (5' 9 ) 07/16/2024 9:05 AM OFFICE CLINICIAN Body Mass Index 24.51 07/16/2024 9:05 AM OFFICE CLINICIAN Plan of Treatment Upcoming Encounters Date Type Department Care Team (Latest Contact Info) Description 11/03/2024 1:35 PM CDT Hospital Encounter [facility] Operating Room 1 [place] [address] Navi Anderson MD [address] [facility] [place] [address] 11/03/2024 1:35 PM CDT - 11/03/2024 7:[address] [facility] Operating Room 1 [place] [address] Navi Anderson MD [address] [facility] 6A/6B/12A [place] [address] Combo Monica/aCndi- FUSION SPINAL - ANTERIOR LUMBAR/THORACIC WITH INSTRUMENTATION [...] neurogenic claudication present 11/03/2024 1:35 PM CDT Health Maintenance Due Date Last Done Comments Breast Cancer Screening-Mammogram 1971 Colon Cancer Screening-Colonoscopy 1971 Depression Screening 1971 Hepatitis C Screening 1971 DTaP/Tdap/Td Vaccine (1 - Tdap) 1982 Hepatitis B Screening 1989 Regular Well Visit/Exam 18-64 1989 Pneumococcal vaccine <65 (1 of 2 - PCV) 1990 Zoster Vaccine (1 of 2) 1990 Covid-19 Vaccine (4 - 2023-2 5 season) 2024 05/31/2021, 09/20/2020, 08/23/2020 Influenza Vaccine (#1) 2024 2, 03/13/2021, 07/21/2018, Additional history exists Procedures Procedure Name Priority Date/Time Associated Diagnosis Comments POC INFLUENZA A/B, COVID-19 ANTIGEN Routine 09/16/2024 7:34 PM CDT Nausea and vomiting, unspecified vomiting type XR SCOLIOSIS AP LAT Schedule Routine, Read Routine (OP Routine) 08/27/2024 10:15 AM OFFICE CLINICIAN Lumbar radiculopathy [place] ARTHROCENTESIS ASPIR&/INJ MAJOR JT/BURSA W/US Routine 08/13/2024 11:30 AM OFFICE CLINICIAN Trochanteric bursitis of left hip POCUS ASP/INJ MAJOR JOINT Schedule Routine, Read Routine (OP Routine) 08/13/2024 11:17 AM OFFICE CLINICIAN Trochanteric bursitis of left hip TRANSFORAMINAL EPIDURAL INJECTION LUMBAR SACRAL FIRST LEVEL BILATERAL Schedule Routine, Read Routine (OP Routine) 07/27/2024 3:07 PM OFFICE CLINICIAN Lumbar radiculopathy DEXA AXIAL SKELETON BONE DENSITY 1 OR MORE SITES Schedule Routine, Read Routine (OP Routine) 07/27/2024 1:44 PM OFFICE CLINICIAN Screening for osteoporosis XR SPINE LUMBAR COMPLETE 4 OR MORE VIEWS Schedule Routine, Read Routine (OP Routine) 07/16/2024 8:45 AM OFFICE CLINICIAN Lumbar spine pain NEURO MR OUTSIDE REFERENCE Routine 07/08/2024 12:36 PM OFFICE CLINICIAN from Last 3 Months Results * POC Influenza A/B, COVID-19 antigen (09/16/2024 7:34 PM CDT) Influenza A Ag, POC Negative Negative [facility] Influenza B Ag, POC Negative Negative [facility] COVID-19 Ag POC Presumptive Negative Presumptive Negative, Invalid [facility] Swab 09/16/2024 7:34 PM CDT Diane Courtney NP POINT OF CARE TEST ORDERABLES Final Result [facility] [address] [place] [address], [facility] * XR Scoliosis 2 or 3 Views (08/27/2024 10:15 AM OFFICE CLINICIAN) Anatomical Region Laterality Modality Spine N/A Computed Radiogr aphy 08/27/2024 11:3 1 AM OFFICE CLINICIAN Impressions 08/27/2024 11:55 AM OFFICE CLINICIAN 1. No scoliotic curvature or truncal balance of the spine. 2. Multilevel degenerative disc disease, up to severe at L5-S1 Dictated by: Lj Joshi M.D. The radiology attending physician has personally reviewed this study, and had reviewed and/or edited this written report and agrees with it. Electronically signed by: Butch Jackson D.O. Narrative 08/27/2024 11:55 AM OFFICE CLINICIAN EXAMINATION: XR SCOLIOSIS AP AND LATERAL HISTORY: Spondylolisthesis COMPARISON: Lumbar spine radiograph 07/16/2024 FINDINGS: No truncal balance or pelvic obliquity. No significant scoliotic curvature. Vertebral body heights are maintained. Straightening of the cervical spine. Mild stepwise anterolisthesis of C3 on C4 and of C4 of C5. Multilevel degenerative disc disease, up to severe at L5-S1. Moderate lower lumbar facet arthropathy. Procedure Note Bucth Jackson DO - 08/27/2024 EXAMINATION: XR SCOLIOSIS AP AND [...] MD IMG XR PROCEDURES Final Result * [place] ARTHROCENTESIS ASPIR&/INJ MAJOR JT/BURSA W/US (08/13/2024 11:30 AM OFFICE CLINICIAN) Narrative Frederick Avery MD - 08/13/2024 11:30 AM OFFICE CLINICIAN Frederick Avery MD 08/20/2024 12:29 AM Greater [...] the procedure well with no immediate complications us Frederick Avery MD IN CLINIC/BEDSIDE ORDERA BLES Edited Result - Final * POCUS ASP/INJ MAJOR JOINT (08/13/2024 11:17 AM OFFICE CLINICIAN) Narrative RAD_PACS_POCUS_[facility] - 08/13/2024 11:17 AM OFFICE CLINICIAN This procedure was performed and interpreted by the provider. Please refer to the provider's procedure/OR operative note for results. us Frederick Avery MD POCUS ORDERABLES Final R esult Performing Organization Address City/[facility]/ZIP Co de Phone Number [facility]PACS_POCUS_[facility] * IR Transforaminal Epidural Injection Lumbar Sacral First Level Bilateral (07/27/2024 3:07 PM OFFICE CLINICIAN) Narrative [facility]_PACS_[facility] - 07/27/2024 3:07 PM OFFICE CLINICIAN The images from this study are not interpreted by Radiology. Please refer to the physician's procedure / OR operative note. us Navi Anderson MD IMG IR PROCEDURES Final Result Performing Organization Address [facility] Co de Phone Number [facility]_PACS_[facility] * DEXA Axial Skeleton Bone Density Multi Site (07/27/2024 1:44 PM OFFICE CLINICIAN) Anatomical Region Laterality Modality Body N/A Radiographic Anne ging Narrative 07/28/2024 2:27 PM OFFICE CLINICIAN Patient Name: Maggie Ramos Date of : 1970 Date of scan: 07/27/2024 Bone mineral density was performed on a [employer] Discovery Densitometer. Based on machine cross-calibration and [...] mineral density scan were prepared by Corina Centeno(Matti) CBDMichael who is accredited by the International Society of Clinical Densitometry. The overall patient assessment and scan interpretation were performed by Ron Hand M.D. who is certified by the International Society of Clinical Densitometry. [id number] Navi Anderson MD IMG DXA PROCEDURE S Final Result * XR Spine Lumbar 4 or More Views (07/16/2024 8:45 AM OFFICE CLINICIAN) Anatomical Region Laterality Modality Spine N/A Computed Radiogr aphy 07/16/2024 8:51 AM OFFICE CLINICIAN Impressions 07/16/2024 8:51 AM OFFICE CLINICIAN 1. Unchanged multilevel degenerative disc disease most pronounced and severe at L5-S1 with lower lumbar facet osteoarthritis. Electronically signed by: Evangelista Hall M.D. Narrative 07/16/2024 8:51 AM OFFICE CLINICIAN EXAMINATION: XR SPINE LUMBAR 4 OR MORE VIEWS HISTORY: lower back pain FINDINGS: 4 view examination of the lumbar spine is read with comparison to lumbar spine MRI 04/27/2024. Alignment is normal without listhesis. No abnormal motion on flexion or extension. No compression fracture. Unchanged multilevel degenerative disc disease most pronounced and severe at L5-S1 with lower lumbar facet osteoarthritis. Procedure Note Andrew Hall, Evangelista Travis MD - 07/16/2024 EXAMINATION: XR SPINE LUMBAR [...] osteoarthritis. Electronically signed by: Evangelista Hall M.D. us Navi Anderson MD IMG XR PROCEDURES Final Result * Neuro MR Outside Reference (07/08/2024 12:36 PM OFFICE CLINICIAN) Impressions [facility] - 07/08/2024 12:36 PM OFFICE CLINICIAN These images are for Reference purposes only and have not been reviewed by [facility]. There will be no report generated by a [facility] Radiologist. Narrative [facility] - 07/08/2024 12:36 PM OFFICE CLINICIAN EXAMINATION: Images For Reference Purposes Only us Navi Anderson MD IMG MRI PROCEDURE S Final Result [facility] from Last 3 Months Insurance [facility] [place] [address] [facility] [employer] Care Teams Television News Anchor Relationship Specialty Start Date End Date Aniya Kennedy PA PCP - General Physician Basting Machine Operator 07/17/23
--- OUTSIDE RECORDS SUMMARY | 2024-09-16 20:01 | XMS_ITS | Encounter Summary ---
Author Organization [facility] Healthcare Address [address] [place] [address] Care Team Providers Care Dinkey Operator Slate Name Role Phone AbelinobandarAniya Primary Care Pr ovider Reason for Visit * Reason Comments Vomiting Vomiting, nausea and diarrhea started 3AM today. Fatigue. 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 Gender Identity Not on file Sexual Orientation Not on file 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 Not on file documented as of this encounter Last Filed Vital Signs Vital Sign Reading Time Taken Comments Blood Pressure 124/68 09/16/2024 7:18 PM CDT Pulse 93 09/16/2024 7:18 PM CDT Temperature 36.4 C (97.5 F) 09/16/2024 7:18 PM CDT Respiratory Rate 28 09/16/2024 7:18 PM CDT Oxygen Saturation 98% 09/16/2024 7:18 PM CDT Inhaled Oxygen Concentration - - Weight - - Height - - Body Mass Index - - documented in this encounter Plan of Treatment Upcoming Encounters Date Type Department Care Team (Latest Contact Info) Description 11/03/2024 1:35 PM CDT Hospital Encounter [facility] Operating Room 1 [place] [address] Navi Anderson MD [address] [employer] [facility] [address] [place] [address] 11/03/2024 1:35 PM CDT - 11/03/2024 7:35 PM CDT Surgery [facility] Operating Room 1 [place] [address] Navi Anderson MD [address] [employer] [facility] [place] [address] Combo Monica/Candi- FUSION SPINAL - ANTERIOR LUMBAR/THORACIC [...] neurogenic claudication present 11/03/2024 1:35 PM CDT documented as of this encounter Procedures Procedure Name Priority Date/Time Associated Diagnosis Comments POC INFLUENZA A/B, COVID-19 ANTIGEN Routine 09/16/2024 7:34 PM CDT Nausea and vomiting, unspecified vomiting type documented in this encounter Results * POC Influenza A/B, COVID-19 antigen (09/16/2024 7:34 PM CDT) Influenza A Ag, POC Negative Negative [facility] Influenza B Ag, POC Negative Negative [facility] COVID-19 Ag POC Presumptive Negative Presumptive Negative, Invalid [facility] Swab 09/16/2024 7:34 PM CDT Diane Courtney NP POINT OF CARE TEST ORDERABLES Final Result Performing Organization Address City/State/[facility] Co de Phone Number [facility] [address] [place] [address], [facility] documented in this encounter Visit Diagnoses Diagnosis Lumbar radiculopathy Thoracic or lumbosacral neuritis or radiculitis, unspecified Spinal stenosis of lumbar region Nausea and vomiting, unspecified vomiting type- Primary Dizziness Dizziness and giddiness Lightheaded Dizziness and giddiness Lumbar radiculopathy Thoracic or lumbosacral neuritis or radiculitis, unspecified Spinal stenosis of lumbar region, unspecified whether neurogenic claudication present documented in this encounter Orders Medications Ordered That Darrel ht Not Have Been Administered Count Last Ordered Date First Ordered Date ondansetron ODT (ZOFRAN-ODT) disintegrating tablet 4 mg 1 09/16/2024 documented in this encounter Additional Health Concerns Infection Onset Date Last Indicated Resolved Time COVID: Suspected 09/16/2024 09/16/2024 09/16/2024 7:35 PM CDT documented as of this encounter Care Teams Dinkey Operator Slate Relationship Specialty Start Date End Date Aniya Kennedy PA PCP - General Physician Drafter Civil 07/17/23 documented as of this encounter
--- OUTSIDE RECORDS SUMMARY | 2024-09-16 20:01 | XMS_ITS | Data Portability ---
Author Organization [facility] Address [address] [place] [address] Care Team Providers Care Insurance Account Executive Name Role Phone TAMEKA CORTEZ Primary Care Provider Unavailab le Assessment Encounter Date Assessment Date Assessment LastModified by Organization Details LastModified Time 01/07/2024 01/07/2024 mammogram and pap smear all UTD colonoscopy 2022 . [email or web address] Not available 01/07/2024 15:30:28 Plan of Treatment Reminders Order Date Submit Date Provider Last Modified By Organization Details Last Modified Time Details Appointments ANY 15 2024 03:30P M DELIA Tolbert Not available Not available Not available ANY 15 2024 10:00A M DELIA Tolbert Not available Not available Not available Lab lipid panel, serum 2023 024 [facility], [address], [place], [address], 01/10/2024 14:36:56 CMP, serum or plasma 2023 024 [facility], [address], [place], [address], 01/10/2024 14:36:57 CBC w/ auto diff 2023 024 [facility], [address], [place], [address], 01/10/2024 14:36:59 vitamin B12 + folate, serum or blood 07/2023 [facility], [address], [place], [address], 01/10/2024 14:36:58 TSH + free T4, serum 2023 [facility], [address], [place], [address], 01/10/2024 14:36:57 HbA1c (hemoglob in A1c), blood 2023 [facility], [address], [place], [address], 01/10/2024 14:36:59 ESR (erythroc yte sedimenta tion rate), blood 2023 [facility], [address], [place], [address], 01/10/2024 14:37:00 C reactive protein, QN, serum or plasma 2023 [facility], [address], [place], [address], 01/10/2024 14:37:00 Referral None recorded. Procedures None recorded. Surgeries None recorded. Imaging None recorded. Medication Orders Mounjaro 10 mg/0.5 mL subcutane ous pen injector 2023 024 [id number], [address] [place], [address], 01/07/2024 15:24:22 Patient TargetsNo targets recorded. Patient InstructionsNo instructions recorded. Reason for Referral None Reported. Results Created Date Observation Date Name Description Value Unit Range Abnormal Flag Note LastModifiedBy Organization Detail LastModifiedTime 01/09/20 24 01/10/2024 LIPID PANEL W/ CHOL/ HDL RATIO cholesterol, total 201 mg/dL 100-19 9 above high normal Not Available [facility] ([facility]) [address] [facility], [place], [address], 01/10/2024 14:36:56 01/09/20 24 01/10/2024 LIPID PANEL W/ CHOL/ HDL RATIO triglyceride s 89 mg/dL 0-149 Not Available [facility] ([facility]) [address] [place], [address], 01/10/2024 14:36:56 01/09/20 24 01/10/2024 LIPID PANEL W/ CHOL/ HDL RATIO HDL cholesterol 49 mg/dL >39 Not Available [facility] ([facility]) [address] [place], [address], 01/10/2024 14:36:56 01/09/20 24 01/10/2024 LIPID PANEL W/ CHOL/ HDL RATIO VLDL cholesterol ervin 16 mg/dL 5-40 Not Available [facility] ([facility]) [address] [place], [address], 01/10/2024 14:36:56 01/09/20 24 01/10/2024 LIPID PANEL W/ CHOL/ HDL RATIO LDL chol calc ([facility]) 136 mg/dL 0-99 above high normal Not Available [facility] ([facility]) [address] [place], [address], 01/10/2024 14:36:56 01/09/20 24 01/10/2024 LIPID PANEL W/ CHOL/ HDL RATIO T. chol/HDL ratio 4.1 ratio 0.0-4. 4 T. Chol/ HDL Ratio Men Women 1/2 Avg.R isk 3.4 3.3 Avg.R isk 5.0 4.4 2X Avg.R isk 9.6 7.1 3X Avg.R isk 23.4 11.0 Not Available [facility] ([facility]) [address] [place], [address], 01/10/2024 14:36:56 01/09/20 24 01/10/2024 TSH+F REE T4 TSH 1.140 uIU/m L 0.450- 4.500 Not Available [facility] ([facility]) [address] [place], [address], 01/10/2024 14:36:57 01/09/20 24 01/10/2024 TSH+F REE T4 T4,free(dire ct) 1.40 NG/dL 0.82-1 .77 Not Available [facility] ([facility]) [address] [place], [address], 01/10/2024 14:36:57 01/09/20 24 01/10/2024 COMP. METAB OLIC PANEL (14) glucose 67 mg/dL 70-99 below low normal Not Available [facility] ([facility]) [address] [place], [address], 01/10/2024 14:36:57 01/09/20 24 01/10/2024 COMP. METAB OLIC PANEL (14) BUN 15 mg/dL 6-24 Not Available [facility] ([facility]) [address] [place], [address], 01/10/2024 14:36:57 01/09/20 24 01/10/2024 COMP. METAB OLIC PANEL (14) creatinine 0.94 mg/dL 0.57-1 .00 Not Available [facility] ([facility]) [address] [place], [address], 01/10/2024 14:36:57 01/09/20 24 01/10/2024 COMP. METAB OLIC PANEL (14) eGFR 73 mL/mi n/1.7 3 >59 Not Available [facility] ([facility]) [address] [place], [address], 01/10/2024 14:36:57 01/09/20 24 01/10/2024 COMP. METAB OLIC PANEL (14) BUN/creatini ne ratio 16 9-23 Not Available [facility] ([facility]) [address], [place], [address], 01/10/2024 14:36:57 01/09/20 24 01/10/2024 COMP. METAB OLIC PANEL (14) sodium 138 mmol/ L 134-14 4 Not Available [facility] ([facility]) [address], [place], [address], 01/10/2024 14:36:57 01/09/20 24 01/10/2024 COMP. METAB OLIC PANEL (14) potassium 4.0 mmol/ L 3.5-5. 2 Not Available [facility] ([facility]) [address] [place], [address], 01/10/2024 14:36:57 01/09/20 24 01/10/2024 COMP. METAB OLIC PANEL (14) chloride 104 mmol/ L 96-106 Not Available [facility] ([facility]) [address], [place], [address], 01/10/2024 14:36:57 01/09/20 24 01/10/2024 COMP. METAB OLIC PANEL (14) carbon dioxide, total 24 mmol/ L 20-29 Not Available [facility] ([facility]) [address] [facility], [place], [address], 01/10/2024 14:36:57 01/09/20 24 01/10/2024 COMP. METAB OLIC PANEL (14) calcium 9.0 mg/dL 8.7-10 .2 Not Available [facility] ([facility]) [address] [facility] [place], [address], 01/10/2024 14:36:57 01/09/20 24 01/10/2024 COMP. METAB OLIC PANEL (14) protein, total 6.8 g/dL 6.0-8. 5 Not Available [facility] ([facility]) [address] [facility] [place], [address], 01/10/2024 14:36:57 01/09/20 24 01/10/2024 COMP. METAB OLIC PANEL (14) albumin 4.4 g/dL 3.8-4. 9 Not Available [facility] ([facility]) [address] [facility], [place], [address], 01/10/2024 14:36:57 01/09/20 24 01/10/2024 COMP. METAB OLIC PANEL (14) globulin, total 2.4 g/dL 1.5-4. 5 Not Available [facility] ([facility]) [address] [facility] [place], [address], 01/10/2024 14:36:57 01/09/20 24 01/10/2024 COMP. METAB OLIC PANEL (14) bilirubin, total 0.3 mg/dL 0.0-1. 2 Not Available [facility] ([facility]) [address] [facility] [place] [place], [address], 01/10/2024 14:36:57 01/09/20 24 01/10/2024 COMP. METAB OLIC PANEL (14) alkaline phosphatase 38 IU/L 44-121 below low normal Not Available [facility] ([facility]) [address] [facility], [place], [address], 01/10/2024 14:36:57 01/09/20 24 01/10/2024 COMP. METAB OLIC PANEL (14) AST (SGOT) 25 IU/L 0-40 Not Available [facility] ([facility]) [address] [facility] [place], [address], 01/10/2024 14:36:57 01/09/20 24 01/10/2024 COMP. METAB OLIC PANEL (14) ALT (SGPT) 33 IU/L 0-32 above high normal Not Available [facility] ([facility]) [address] [facility] [place], [address], 01/10/2024 14:36:57 01/09/20 24 01/10/2024 VITAM IN B12 AND FOLAT E vitamin B12 711 pg/mL 232-12 45 Not Available [facility] ([facility]) [address] [facility], [place], [address], 01/10/2024 14:36:58 01/09/20 24 01/10/2024 VITAM IN B12 AND FOLAT E folate (folic acid), serum 11.1 NG/mL >3.0 A serum folat e kalyani ntrat ion of less than 3.1 ng/mL is consi dered to repre sent clini ervin defic iency . Not Available [facility] ([facility]) [address] [facility], [place], [address], 01/10/2024 14:36:58 01/09/20 24 01/10/2024 HEMOG LOBIN A1C hemoglobin A1C 5.2 % 4.8-5. 6 Predi abete s: 5.7 - 6.4 Diabe leonie: >6.4 Glyce noam contr ol for adult s with diabe leonie: <7.0 Not Available [facility] ([facility]) [address] [facility], [place], [address], 01/10/2024 14:36:59 01/09/20 24 01/10/2024 CBC WITH DIFFE RENTI AL/PL ATELE T WBC 4.6 x10e3 /uL 3.4-10 .8 Not Available [facility] ([facility]) [address] [facility], [place], [address], 01/10/2024 14:36:59 01/09/20 24 01/10/2024 CBC WITH DIFFE RENTI AL/PL ATELE T RBC 3.85 x10e6 /uL 3.77-5 .28 Not Available [facility] ([facility]) [address] [facility], [place], [address], 01/10/2024 14:36:59 01/09/20 24 01/10/2024 CBC WITH DIFFE RENTI AL/PL ATELE T hemoglobin 12.3 g/dL 11.1-1 5.9 Not Available [facility] ([facility]) [address] [facility], [place], [address], 01/10/2024 14:36:59 01/09/20 24 01/10/2024 CBC WITH DIFFE RENTI AL/PL ATELE T hematocrit 36.2 % 34.0-4 6.6 Not Available [facility] ([facility]) [address] [facility], [place], [address], 01/10/2024 14:36:59 01/09/20 24 01/10/2024 CBC WITH DIFFE RENTI AL/PL ATELE T MCV 94 fL 79-97 Not Available [facility] ([facility]) [address] [facility], [place], [address], 01/10/2024 14:36:59 01/09/20 24 01/10/2024 CBC WITH DIFFE RENTI AL/PL ATELE T MCH 31.9 pg 26.6-3 3.0 Not Available [facility] ([facility]) [address] [place], [address], 01/10/2024 14:36:59 01/09/20 24 01/10/2024 CBC WITH DIFFE RENTI AL/PL ATELE T MCHC 34.0 g/dL 31.5-3 5.7 Not Available [facility] ([facility]) [address] [place], [address], 01/10/2024 14:36:59 01/09/20 24 01/10/2024 CBC WITH DIFFE RENTI AL/PL ATELE T RDW 12.3 % 11.7-1 5.4 Not Available [facility] ([facility]) [address] [place], [address], 01/10/2024 14:36:59 01/09/20 24 01/10/2024 CBC WITH DIFFE RENTI AL/PL ATELE T platelets 198 x10e3 /uL 150-45 0 Not Available [facility] ([facility]) [address] [facility], [place], [address], 01/10/2024 14:36:59 01/09/20 24 01/10/2024 CBC WITH DIFFE RENTI AL/PL ATELE T neutrophils 54 % notest ab. Not Available [facility] ([facility]) [address] [facility], [place], [address], 01/10/2024 14:36:59 01/09/20 24 01/10/2024 CBC WITH DIFFE RENTI AL/PL ATELE T lymphs 33 % notest ab. Not Available [facility] ([facility]) [address] [facility], [place], [address], 01/10/2024 14:36:59 01/09/20 24 01/10/2024 CBC WITH DIFFE RENTI AL/PL ATELE T monocytes 10 % notest ab. Not Available [facility] ([facility]) [address] [facility], [place], [address], 01/10/2024 14:36:59 01/09/20 24 01/10/2024 CBC WITH DIFFE RENTI AL/PL ATELE T eos 2 % notest ab. Not Available [facility] ([facility]) [address] [facility], [place], [address], 01/10/2024 14:36:59 01/09/20 24 01/10/2024 CBC WITH DIFFE RENTI AL/PL ATELE T basos 1 % notest ab. Not Available [facility] ([facility]) [address] [facility], [place], [address], 01/10/2024 14:36:59 01/09/20 24 01/10/2024 CBC WITH DIFFE RENTI AL/PL ATELE T neutrophils (absolute) 2.5 x10e3 /uL 1.4-7. 0 Not Available [facility] ([facility]) [address] [facility], [place], [address], 01/10/2024 14:36:59 01/09/20 24 01/10/2024 CBC WITH DIFFE RENTI AL/PL ATELE T lymphs (absolute) 1.5 x10e3 /uL 0.7-3. 1 Not Available [facility] ([facility]) [address] [facility], [place], [address], 01/10/2024 14:36:59 01/09/20 24 01/10/2024 CBC WITH DIFFE RENTI AL/PL ATELE T monocytes(ab solute) 0.5 x10e3 /uL 0.1-0. 9 Not Available [facility] ([facility]) [address] [facility], [place], [address], 01/10/2024 14:36:59 01/09/20 24 01/10/2024 CBC WITH DIFFE RENTI AL/PL ATELE T eos (absolute) 0.1 x10e3 /uL 0.0-0. 4 Not Available [facility] ([facility]) [address] [facility], [place], [address], 01/10/2024 14:36:59 01/09/20 24 01/10/2024 CBC WITH DIFFE RENTI AL/PL ATELE T baso (absolute) 0.0 x10e3 /uL 0.0-0. 2 Not Available [facility] ([facility]) [address] [place], [address], 01/10/2024 14:36:59 01/09/20 24 01/10/2024 CBC WITH DIFFE RENTI AL/PL ATELE T immature granulocytes 0 % notest ab. Not Available [facility] ([facility]) [address] [facility], [place], [address], 01/10/2024 14:36:59 01/09/20 24 01/10/2024 CBC WITH DIFFE RENTI AL/PL ATELE T immature grans (abs) 0.0 x10e3 /uL 0.0-0. 1 Not Available [facility] ([facility]) [address] [facility], [place], [address], 01/10/2024 14:36:59 01/09/20 24 01/10/2024 SEDIM ENTAT ION RATE- WESTE RGREN sedimentatio n rate-westerg vic 2 mm/HR 0-40 Not Available [facility] ([facility]) [address] [facility], [place], [address], 01/10/2024 14:37:00 01/09/20 24 01/10/2024 C-ROSALIA CTIVE PROTE IN, QUANT C-reactive protein, quant <1 mg/L 0-10 Not Available [facility] ([facility]) [address] [facility], [place], [address], 01/10/2024 14:37:00 04/28/20 24 04/27/2024 MRI, lumba r spine , w/o contr ast No observ ation record ed. [facility] [address] [facility] [address], [place], [address], 04/29/2024 12:29:10 06/08/20 24 06/05/2024 MAMMO , scree sourav, bilat eral No observ ation record ed. [email or web address] [facility] [address], [place], [address], 06/08/2024 15:18:32 Result Notes None recorded. Problems Name Problem SNOMED Code Status Onset Date Resolution Date Notes Provider Name and Address Organization Details Recorded Time Rheumatoid arthritis 29844331 Active 2023 DELIA Tolbert Attn: Kaleigh arevalo,[address] [facility], [place], [address], [facility] 15:19:10 Gastroesophage al reflux disease without esophagitis 805911992 Active 2023 DELIA Tolbert Attn: Kaleigh arevalo,[address], [place], [address], [facility] 4 15:19:11 Long-term drug therapy Active 2023 DELIA Tolbert Attn: Kaleigh g,[address], [place], [address], [facility] 4 15:19:12 Body mass index 20-24 - normal 336833006 Active 2023 DELIA Tolbert Attn: Kaleigh g,[address], [place], [address], [facility] 15:19:14 Problem Notes None recorded. Procedures Surgical History Date Name Laterality Status Provider Name and Address Organization Details Recorded Time Tonsillectomy completed Tay Salazar MA [facility] 01/07/2024 15:27:36 hysterectomy completed Tay Salazar MA [facility] 01/07/2024 15:27:44 Imaging Results Imaging Date Name Status [facility] Details LastModified Time 04/27/2024 MRI, lumbar spine, w/o contrast completed [facility] [address] [facility] [address], [place], [address], 04/29/2024 12:29:10 06/05/2024 MAMMO, screening, bilateral completed [email or web address] [facility] [address] [facility] [address], [place], [address], 06/08/2024 15:18:32 Procedure Notes None recorded. Medical Equipment None Reported. Allergies No known drug allergies Medications Name Sig Start Date Stop Date Status Note LastModified by Organization Details LastModified Time sulfasalazi ne 500 mg tablet TAKE 2 TABLETS BY MOUTH TWICE DAILY 01/06 completed Not Available Not Available Not Available pimecrolimu s 1 % topical cream APPLY THIN LAYER TOPICALLY TO THE AFFECTED AREA TWICE DAILY UNTIL RESOLVED 01/06 completed Not Available Not Available Not Available sulfamethox azole 800 mg-trimetho prim 160 mg tablet TAKE 1 TABLET BY MOUTH TWICE A DAY FOR 7 DAYS 01/06 completed Not Available Not Available Not Available omeprazole 40 mg capsule,del ayed release TAKE 1 CAPSULE BY MOUTH DAILY active Not Available Not Available No t Available estradiol 1 mg tablet TAKE 1 TABLET BY MOUTH EVERY DAY 01/06 completed Not Available Not Available Not Available neomycin-po lymyxin-dex ameth 3.5 mg/mL-10,00 0 unit/mL-0.1 % eye drops SHAKE LIQUID AND INSTILL 1 DROP IN BOTH EYES THREE TIMES DAILY FOR 1 WEEK 01/06 completed Not Available Not Available Not Available prednisone 50 mg tablet TAKE 1 TABLET BY MOUTH EVERY DAY FOR 5 DAYS 01/06 completed Not Available Not Available Not Available diclofenac sodium 75 mg tablet,jameson yed release TAKE 1 TABLET BY MOUTH TWICE DAILY active Not Available Not Available No t Available mupirocin 2 % topical ointment APPLY TO AFFECTED AREA 3 TIMES A DAY FOR 10 DAYS 01/06 completed Not Available Not Available Not Available estradiol 0.5 mg tablet TAKE 1 TABLET BY MOUTH DAILY active Not Available Not Available No t Available hydroxychlo roquine 200 mg tablet TAKE 1 TABLET BY MOUTH EVERY DAY 2023 active Not Available Not Available Not Avai lable albuterol sulfate HFA 90 mcg/actuati on aerosol inhaler INHALE 2 PUFFS BY MOUTH EVERY 4 TO 6 HOURS NEEDED 01/06 completed Not Available Not Available Not Available doxycycline hyclate 20 mg tablet TAKE 1 TABLET BY MOUTH TWICE DAILY 01/06 completed Not Available Not Available Not Available amoxicillin 875 mg-potassiu m clavulanate 125 mg tablet TAKE 1 TABLET BY MOUTH EVERY 12 HOURS 01/06 completed Not Available Not Available Not Available clindamycin 1 % lotion APPLY THIN LAYER TOPICALLY TO THE AFFECTED AREA TWICE DAILY 01/06 completed Not Available Not Available Not Available escitalopra m 10 mg tablet TAKE 1 TABLET BY MOUTH EVERY DAY active Not Available Not Available No t Available moxifloxaci n 0.5 % eye drops INSTILL 1 DROP IN BOTH EYES THREE TIMES DAILY FOR 7 DAYS 01/06 completed Not Available Not Available Not Available metronidazo le 1 % topical gel APPLY THIN LAYER TO AFFECTED AREA ONCE DAILY active Not Available Not Available No t Available Enbrel SureClick 50 mg/mL (1 mL) subcutaneou s pen injector active Not Available Not Available Not Available Mounjaro 10 mg/0.5 mL subcutaneou s pen injector INJECT 10MG SUBCUTANE OUSLY WEEKLY DIRECTED 2024 active Not Available Not Available Not Avai lable Vitals Date Recorded Respiratory rate Body weight Body mass index (BMI) Body height Oxygen saturation Oxygen saturation in Arterial blood by Pulse oximetry Heart rate Systolic blood pressure Diastolic blood pressure Provider Name and Address Organization Details Last Updated DateTime 18 /min 84608.6 6 g 23.1 kg/m2 177.8 cm 100 % 100 % 71 /min 132 mm[Hg] 88 mm[Hg] Tay Salazar MA [facility] 15:00:39 Date Recorded Systolic blood pressure Diastolic blood pressure Provider Name and Address Organization Details Last Updated DateTime 01/07/2024 124 mm[Hg] 80 mm[Hg] DELIA Tolbert Attn: Accounting,[address] [place], [address], [facility] 01/07/2024 15:30:38 Social History Question Answer Notes LastModified by Organizat ion Details LastModified Time Tobacco Smoking Status Former Smoker Tay Salazar MA [facility] [place] [facility], [facility] 01/07/2024 15:28:20 Do You Have An Advance Directive? No Information not available 01/07/2024 Are You Blind Or Do You Have Difficulty Seeing? No Readers Information not available 01/07/2024 What Is Your Level Of Caffeine Consumption? Moderate Information not available 01/07/2024 In The 14 Days Before Symptom Onset, Have You Had Close Contact With A Laboratory-confir med COVID-19 While That Case Was Ill? No Information not available 01/07/2024 In The 14 Days Before Symptom Onset, Have You Had Close Contact With A Person Who Is Under Investigation For COVID-19 While That Person Was Ill? No Information not available 01/07/2024 Have You Been To An Area Known To Be High Risk For COVID-19? No Information not available 01/07/2024 Are You Currently Employed? Yes Information not available 01/07/2024 Are You Deaf Or Do You Have Serious Difficulty Hearing? No Information not available 01/07/2024 What Type Of Diet Are You Following? 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 No Information not available 01/07/2024 What Was The Date Of Your Most Recent Tobacco Screening? 01/07/2024 Information not available 01/07/2024 What Is Your Current Pack Years? [id number] rs Information not available 01/07/2024 What Is Your Relationship Status? Information not available 01/07/2024 Do You Use Your Seat Belt Or Car Seat Routinely? Yes Information not available 01/07/2024 Do You Have Smoke And Carbon Monoxide Detectors In Your Home? Yes Information not available 01/07/2024 How Much Tobacco Do You Smoke? No Information not available 01/07/2024 Do You Feel Stressed (tense, Restless, Nervous, Or Anxious, Or Unable To Sleep At Night)? [id number] Information not available 01/07/2024 Do You Use Any Illicit Or Recreational Drugs? No Information not available 01/07/2024 Do You Use Sunscreen Routinely? No Information not available 01/07/2024 Has Tobacco Cessation Counseling Been Provided? Yes Information not available 01/07/2024 On What Date Was Tobacco Cessation Counseling Provided? 01/07/2024 Information not available 01/07/2024 Do You Or Have You Ever Used Any Other Forms Of Tobacco Or Nicotine? No Information not available 01/07/2024 Sex: Female Functional Status Question Answer Note LastModified by Organization D etails LastModified Time Are you able to care for yourself? Yes Information n ot available 01/07/2024 What is your exercise level? None Information not available 01/07/2024 Mental Status None recorded. Family History Relationship Description Onset Age of this Age Resolved Age Notes LastModified by Organization Details LastModified Time Mother Migraine [email or web address] Not availabl e 01/07/2024 15:27:57 Medical History No medical history recorded. Gynecological History Statement/Question Response Menses Monthly N Current Control Method Other Obstetrics History GPAL:G 7 P 4 0 0 4 Type Value Full Term 4 Induced 0 Spontaneous 0 Premature 0 Living 4 Total 7 Immunizations Vaccine Type Date Status Note Provider Nam e and Address Organization Details Recorded Time zoster recombinant 4 completed Jessica [place] null, [place] [facility] 03/23/2024 15:48:51 Influenza, MDCK, quadrivalent, PF 8 completed [place] [facility] 03/23/2024 15:48:51 COVID-19, mRNA, LNP-S, PF, 100 mcg/0.5mL dose or 50 mcg/0.25mL dose 1 completed [place] [facility] 03/23/2024 15:48:51 COVID-19, mRNA, LNP-S, PF, 100 mcg/0.5mL dose or 50 mcg/0.25mL dose 1 completed [place] [facility] 03/23/2024 15:48:51 COVID-19, mRNA, LNP-S, PF, 100 mcg/0.5mL dose or 50 mcg/0.25mL dose 1 completed Jessica [place] [facility] 03/23/2024 15:48:51 Influenza, split virus, trivalent, preservative 4 completed [place] [facility] 03/23/2024 15:48:51 Influenza, split virus, quadrivalent, PF 9 completed Jessica Londono [place] [facility] 03/23/2024 15:48:51 Influenza, split virus, quadrivalent, PF 1 completed Jessica [place] [facility] 03/23/2024 15:48:51 Influenza, MDCK, trivalent, PF 4 completed [place] [facility] 03/23/2024 15:48:51 zoster recombinant 4 completed [place] [facility] 03/23/2024 15:49:23 influenza, unspecified formulation 4 completed Tay Salazar [place] [facility] 05/25/2024 14:40:47 Past Encounters Encounter ID Performer Location Encounter Start Date Encounter Closed Date Diagnosis/Indication Diagnosis SNOMED-CT Code Diagnosis ICD10 Code Diagnosis Note [id number] DELIA Tolbert [facility] [address] [place] [address] 01/07/2024 14:28:02 01/07/2024 15:38:21 Body mass index 20-24 - normal 432229562 Z68.23 BMI is 23.1 Adult heal th examination 566803401 Z00.01 Annual wellness exam completed Rheumatoid arthritis 698 40421 M06.9 We will add on a sed rate and C-reactive protein for her so that she has updated labs for her rheumatolo gist appointmen t Long-term drug therapy [id number] Z79.899 All routine labs are due fasting Gastroesop hageal reflux disease without esophagitis 729341774 K21.9 Stable on omeprazole 40 mg daily Renewal of prescription 773667460 Z76.0 Refill on Mounjaro 10 mg weekly maintenanc e dosing which she does extend dosing interval to every 10-14 days Cholesterol screening 27 6921021 Z13.220 Fasting lipid panel is due Diabetes m ellitus screening 330585495 Z13.1 Annual A1c screening is due Health Concerns Section Related Observation LastModified by Organization Detai ls LastModified Time None Recorded Concern Status LastModified by Organization Details LastModified Time None Recorded Advance Directives Directive N: Payers Encounter Date Sequence Insurance Name Policy Number Policy Diaz Covered Member ID Diaz Member ID Guarantor Name 01/07/2024 1 [facility] Justin Ramos [id number] Maggie Ramos Notes Date Note Type Note Provider Name and Address Organization Details Recorded Time 01/07/2024 text/html Patient has hist ory of rheumatoid arthritis and is followed by paramedic rn routinely. She would like for us to add on her rheumatology labs with her regular labs from primary care. GERD-patient has omeprazole 40 mg daily that is working for symptom control. Patient has been taking Mounjaro therapy for weight loss which has also considerably helped her rheumatoid arthritis. She is very pleased with this and is paying out of pocket but worth it for maintenance management of her health. DELIA Tolbert Attn: Accounting,[address] [facility], [place], [address], [facility] - [facility] 01/22/2024 10:58:37 OBGyn Episode No OBEpisode recorded.
--- OUTSIDE RECORDS SUMMARY | 2024-09-16 20:01 | XMS_ITS | Encounter Summary ---
Author Organization [facility] Address [address] [facility] [address] [place] [address] Phone Care Team Providers Care Harbour Master Name Role Phone Aniya Kennedy Primary Care Pr ovider Encounter Details Date Type Department Care Team (Late st Contact Info) Description 09/16/2024 Telephone 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 Not on file documented as of this encounter Miscellaneous Notes * Telephone Encounter - Marilyn Cordovaolyn - 09/16/2024 11:43 AM CDT ROLAND on Maggie's VM to schedule Pre-Op evaluation for procedure on 11/03 documented in this encounter Plan of Treatment Upcoming Encounters Date Type Department Care Team (Latest Contact Info) Description 11/03/2024 1:35 PM CDT Hospital Encounter [facility] Operating Room 1 [place] [address] Navi Anderson MD [address] [place] [address] 11/03/2024 1:35 PM CDT - 11/03/2024 7:35 PM CDT Surgery [facility] Operating Room 1 [place] [id number] Navi Anderson MD [address] [facility] [place] [address] Combo Monica/Candi- FUSION SPINAL - ANTERIOR LUMBAR/THORACIC [...] PM CDT documented as of this encounter Visit Diagnoses Not on filedocumented in this encounter Care Teams Harbour Master Relationship Specialty Start Date End Date Aniya Kennedy PA PCP - General Physician Food Production Machine Operator 07/17/23 documented as of this encounter
--- OUTSIDE RECORDS SUMMARY | 2024-09-16 20:01 | XMS_ITS | Clinical Summary ---
Author Organization [facility] Address [address] [facility] [place] [address] Care Team Providers Care Deck And Hull Assembler Name Role Phone Aniya Guerra Primary Care Pr ovider Source Comments [facility],non-owned Affiliates and Associated Physician Practices is amultiple site organization consisting of ambulatory clinics and hospital sitesin [place], [place], [place] and [place]. This disclosure is being madepursuant to the Care Everywhere program and may not contain all information available regarding this patient. Last updated 18.[facility] Allergies No known active allergies Medications * Be aware that medications may not be up to date on this document. Alwaysverify current medications with the patient. Medication Sig Dispensed Refills Start Date End Date Status Mounjaro 10 MG/0.5ML injection Inject 10 (ten) mg subcutaneously every 14 days 3 Active sulfaSALAzine (Azulfidine) 500 MG tabletIndicatio ns:Rheumatoid arthritis involving both hands with positive rheumatoid factor (HCC) TAKE 2 TABLETS BY MOUTH TWICE DAILY 120 tablet 5 4 Active hydroxychloroqu ine (Plaquenil) 200 MG tabletIndicatio ns:Rheumatoid arthritis involving both hands with positive rheumatoid factor (HCC) TAKE 1 TABLET BY MOUTH EVERY DAY 90 tablet 3 4 Active omeprazole (PriLOSEC) 40 MG capsule Take 1 (one) capsule by mouth once daily 4 Active cetirizine (ZyrTEC) 10 MG tablet Active Enbrel SureClick 50 MG/ML auto-injector penIndications: Rheumatoid arthritis involving both hands with positive rheumatoid factor (HCC) INJECT 1 PEN UNDER THE SKIN EVERY 7 DAYS 12 mL 3 5 Active diclofenac sodium EC (Voltaren) 75 MG tabletIndicatio ns:Rheumatoid arthritis involving both hands with positive rheumatoid factor (HCC) TAKE 1 TABLET BY MOUTH TWICE DAILY 60 tablet 5 5 Active diclofenac sodium EC (Voltaren) 75 MG tabletIndicatio ns:Rheumatoid arthritis involving both hands with positive rheumatoid factor (HCC) TAKE 1 TABLET BY MOUTH TWICE DAILY 60 tablet 5 4 09/05/19 25 Discontinued Active Problems Problem Noted Date Diagnosed Date Encounter for therapeutic drug monitoring 2017 Rheumatoid arthritis involvi ng both hands with positive rheumatoid factor 01/14/2018 Encounters Date Type Department Care Team Description 09/04/2024 Refill [facility] - Rheumatology [address] [place] [address] Panda Allen MD Refill Request 08/05/2024 Refill [facility] - Rheumatology [address] [place] [phone] Panda Allen MD Refill Request 07/14/2024 2:33 PM DREDGE WORKER - 07/14/2024 11:59 PM DREDGE WORKER Hospital Encounter [facility] DIAGNOSTIC RAD OP [address] [place] [address] Panda Allen MD Discharge Disposition: Home or Self Care 07/14/2024 1:45 PM DREDGE WORKER - 07/14/2024 2:32 PM [facility] Hospital Encounter [facility] LAB OP [place] [address] [place] [address] Discharge Disposition: Home or Self Care 07/14/2024 1:00 PM DREDGE WORKER Office Visit [facility] - Rheumatology [address] [place] [address] Panda Allen MD Encounter for therapeutic drug monitoring (Primary Dx); Rheumatoid arthritis involving both hands with positive rheumatoid factor 07/14/2024 Travel from Last 3 Months Immunizations Name Administration Dates Next Due INFLUENZA VACCINE 04/12/2022,06/24/2014 INFLUENZA VACCINE, QUADR. (F LUZONE; FLULAVAL; FLUARIX; AFLURIA QUADRIVALENT; 6MO+), 0.5 ML (IIV4) 03/13/2021,07/21/2018 Influenza Intradermal 07/09/2016 Social History Tobacco Use Types Packs/Day Years Used Date Smoking Tobacco: Never Smokeless Tobacco: Never Tobacco Cessation:Counseling Given: Not Answered Alcohol Use Standard Drinks/Week Comments Not Currently 0 (1 standard drink = 0.6 oz pur e alcohol) rarely PHQ-2 Answer Date Recorded Patient Health Questionnaire-2 Score 0 07/14/2024 Sex and Gender Information Value Date Recorded Sex Assigned at Female 05/21/2022 6:35 PM DREDGE WORKER Gender Identity Female 05/21/2022 6:35 PM DREDGE WORKER Sexual Orientation Straight 05/21/2022 6: 35 PM DREDGE WORKER Last Filed Vital Signs Vital Sign Reading Time Taken Comments Blood Pressure 109/76 07/14/2024 1:04 PM DREDGE WORKER Pulse 69 07/14/2024 1:04 PM DREDGE WORKER Temperature 36.7 C (98 F) 07/14/2024 1:04 PM DREDGE WORKER Respiratory Rate 16 11/01/2018 12:2 9 PM CDT Oxygen Saturation 98% 07/14/2024 1:04 PM DREDGE WORKER Inhaled Oxygen Concentration - - Weight 74.8 kg (164 lb 12.8 oz) 07/14/2024 1:04 PM DREDGE WORKER Height 177.8 cm (5' 10 ) 07/14/2024 1:04 PM DREDGE WORKER Body Mass Index 23.65 07/14/2024 1:04 PM DREDGE WORKER Plan of Treatment Upcoming Encounters Date Type Department Care Team (Late st Contact Info) Description 01/12/2025 1:20 PM CDT Office Visit [facility] - Rheumatology [address] [place] [address], [place] [address] Panda Allen MD [address] [place] [address] [place] [phone] Health Maintenance Due Date Last Done Comments COLOGUARD (AGES 45-75) - COLON CA SCREENING 1971 COLON MONITORING 1971 COLONOSCOPY - COLON CA SCREENING 1971 CT COLONOGRAPHY - COLON CA SCREENING 1971 Colorectal Cancer Screening 1971 FIT - COLON CA SCREENING 1971 FLEX SIG - COLON CA SCREENING 1971 MAMMOGRAM 1971 PAP SMEAR 1971 HIV SCREENING 1986 DTAP/TDAP/TD VACCINES (1 - Tdap) 1990 HEPATITIS B VACCINE (1 of 3 - 19+ 3-dose series) 1990 LIPID TESTING 12/22/2014 12/22/2009 PNEUMOCOCCAL VACCINE 50+ (1 of 1 - PCV) 2021 ZOSTER VACCINE (1 of 2) 2021 COVID-19 VACCINE ( - season) 2024 05/31/2021, 09/20/2020, 08/23/2020 INFLUENZA VACCINE (#1) 2024 , 03/13/2021, 07/21/2018, Additional history exists HEPATITIS C SCREENING Completed 09/09/2023, 023 DEPRESSION SCREENING Completed 07/14/2024, 03/11/2023, 02/27/2022 HIB VACCINE Aged Out No longer eligi ble based on patient's age to complete this topic HPV VACCINE Aged Out No longer eligi ble based on patient's age to complete this topic MENINGOCOCCAL (Group B) VACCINE SHARED DECISION-MAKING Aged Out No longer eligible based on patient's age to complete this topic MENINGOCOCCAL GROUPS A/C/Y/W VACCINE Aged Out No longer eligible based on patient's age to complete this topic Procedures Procedure Name Priority Date/Time Associated Diagnosis Comments XR CHEST 2VW Routine 07/14/2024 2:37 PM DREDGE WORKER Encounter for therapeutic drug monitoring URINALYSIS W/MICROSCOPIC REFLEX TO CULTURE Routine 07/08/2024 4:04 PM DREDGE WORKER Rheumatoid arthritis involving both hands with positive rheumatoid factor Encounter for therapeutic drug monitoring ERYTHROCYTE SEDIMENTATION RATE Routine 07/08/2024 4:04 PM DREDGE WORKER Rheumatoid arthritis involving both hands with positive rheumatoid factor Encounter for therapeutic drug monitoring C-REACTIVE PROTEIN Routine 07/08/2024 4: 04 PM DREDGE WORKER Rheumatoid arthritis involving both hands with positive rheumatoid factor Encounter for therapeutic drug monitoring COMPREHENSIVE METABOLIC PANEL Routine 07/08/2024 4:04 PM DREDGE WORKER Rheumatoid arthritis involving both hands with positive rheumatoid factor Encounter for therapeutic drug monitoring CBC W AUTO DIFFERENTIAL Routine 07/08/2024 4:04 PM DREDGE WORKER Rheumatoid arthritis involving both hands with positive rheumatoid factor Encounter for therapeutic drug monitoring HEPATITIS C ANTIBODY Routine 09/09/2023 2:18 PM CDT Rheumatoid arthritis involving both hands with positive rheumatoid factor Encounter for therapeutic drug monitoring from Last 3 Months or Most Recently Relevant to Health Maintenance Results * XR Chest 2Vw (07/14/2024 2:37 PM DREDGE WORKER) Anatomical Region Laterality Modality Chest Digital Radiogra phy 07/14/2024 2:54 PM DREDGE WORKER Narrative 07/15/2024 1:35 PM DREDGE WORKER PROCEDURE: XR CHEST 2VW, DATE/TIME OF EXAM: 07/14/2024 2:37 PM, LOCATION [facility] INDICATION: Z51.81: Encounter for therapeutic drug monitoring ADDITIONAL CLINICAL INFORMATION: Ordering Provider Reason For Exam: Technologist Note: Additional: COMPARISON: Chest radiograph from 03/11/2023. FINDINGS/IMPRESSION: There is no focal lung consolidation, pleural effusion, or pneumothorax. The cardiomediastinal silhouette is normal. The bony thorax is intact. The report was drafted by Sabine Parikh MD (pharmacy resident) 07/14/2024 2:54 PM. IStiven MD have personally reviewed and interpreted this examination/study. > Interpreting Provider: Stiven Samaniego MD on 07/15/2024 1:35 PM Procedure Note Stiven Samaniego MD - 07/15/2024 PROCEDURE: XR CHEST 2VW, DATE/TIME OF EXAM: 07/14/2024 2:37 PM, LOCATION [facility] INDICATION: Z51.81: Encounter for therapeutic drug monitoring ADDITIONAL CLINICAL INFORMATION: Ordering Provider Reason For Exam: Technologist Note: Additional: COMPARISON: Chest radiograph from 03/11/2023. FINDINGS/IMPRESSION: There is no focal lung consolidation, pleural effusion, or pneumothorax. The cardiomediastinal silhouette is normal. The bony thorax is intact. The report was drafted by Sabine Parikh MD (pharmacy resident) 07/14/2024 2:54 PM. I, Stiven Samaniego MD have personally reviewed and interpreted this examination/study. > Interpreting Provider: Stiven Samaniego MD on 07/15/2024 1:35 PM Panda Allen MD DIAGNOSTIC IMAGING O RDERABLES * (ABNORMAL) URINALYSIS W/MICROSCOPIC REFLEX TO CULTURE (07/08/2024 4:04 PM DREDGE WORKER) Specific [place] UA 1.024 1.005 - 1.030 [facility] INSURANCE BILL pH UA 5.5 5.0 - 7.5 [facility] INSURANCE BILL Color UA Yellow Yellow [facility] INSURANCE BILL Appearance Clear Clear [facility] INSURANCE BILL Leukocyte UA Negative Negative [facility] INSURANCE BILL Protein UA Negative Negative/Tra ce [facility] INSURANCE BILL Glucose UA Negative Negative [facility]URANCE BILL Ketone UA Negative Negative [facility] INSURANCE BILL Occult Blood Urine Negative Negative [facility] INSURANCE BILL Bilirubin UA Negative Negative [facility] INSURANCE BILL Urobilinogen 0.2 0.2 - 1.0 mg/dL [facility] INSURANCE BILL Nitrite UA Negative Negative [facility] INSURANCE BILL Microscopic Examination Urine Comment [facility] INSURANCE BILL Comment:Microscopic follows if indicated. Microscopic Examination Urine See below: [facility] INSURANCE BILL Comment:Microscopic was mindi cated and was performed. Urinalysis Reflex Comment [facility] INSURANCE BILL Comment: This specimen will not reflex to a Urine Culture. Performed at: [facility] [id number] V Belt Curer: Nate Acosta PhD, Phone: [phone] WBC UA None seen 0 - 5 /hpf [facility] INSURANCE BILL RBC UA None seen 0 - 2 /hpf [facility] INSURANCE BILL Epithelial Cells (non renal) >10(A) 0 - 10 /hpf [facility] INSURANCE BILL Casts ua None seen None seen /lpf [facility] INSURANCE BILL Bacteria UA Few None seen/Few [facility] INSURANCE BILL Urine URINE SPECIMEN OBTAINED BY CLEAN CATCH PROCEDURE / Unknown 07/08/2024 4:04 PM DREDGE WORKER 07/08/2024 Narrative [facility] INSURANCE BILL - 07/09/2024 3:08 PM DREDGE WORKER Performed at: [address] [place] [id number] V Belt Curer: Nate Acosta PhD, Phone: [phone] Panda Allen MD LAB - URINALYSIS ORD ERABLES Performing Organization Address [facility] Co de Phone Number [facility] INSURANCE BILL [address] [place] [address] * C-REACTIVE PROTEIN (07/08/2024 4:04 PM DREDGE WORKER) C-Reactive Protein <1 0 - 10 mg/L [facility] INSURANCE BILL Blood BLOOD SPECIMEN / Unknown 07/08/2024 4:04 PM DREDGE WORKER 07/08/2024 Narrative [facility] INSURANCE BILL - 07/09/2024 1:08 PM DREDGE WORKER Performed at: [address] [place] [id number] V Belt Curer: Nate Acosta PhD, Phone: [phone] Panda Allen MD LAB - CHEMISTRY ORDE RABLES Performing Organization Address [facility] Co de Phone Number [facility] INSURANCE BILL [address] [place] [address] * ERYTHROCYTE SEDIMENTATION RATE (07/08/2024 4:04 PM DREDGE WORKER) Erythrocyte Sedimentation Rate Westergren 2 0 - 40 mm/hr [facility] INSURANCE BILL Blood BLOOD SPECIMEN / Unknown 07/08/2024 4:04 PM DREDGE WORKER 07/08/2024 Narrative [facility] INSURANCE BILL - 07/09/2024 7:09 AM DREDGE WORKER Performed at: 01 - [facility] [address] [place], [place] [id number] V Belt Curer: Nate Acosta PhD, Phone: [phone] Panda Allen MD LAB - HEMATOLOGY ORD ERABLES [facility] INSURANCE BILL [address] [place] [address] * CBC WITH DIFFERENTIAL (07/08/2024 4:04 PM DREDGE WORKER) WBC 4.1 3.4 - 10.8 x10E3/uL [facility] INSURANCE BILL RBC 4.06 3.77 - 5.28 x10E6/uL [facility] INSURANCE BILL Hemoglobin 12.7 11.1 - 15.9 g/dL [facility] INSURANCE BILL Hematocrit 38.7 34.0 - 46.6 % [facility] INSURANCE BILL MCV 95 79 - 97 fL [facility] INSURANCE BILL MCH 31.3 26.6 - 33.0 pg [facility] INSURANCE BILL MCHC 32.8 31.5 - 35.7 g/dL [facility] INSURANCE BILL RDW 12.4 11.7 - 15.4 % [facility] INSURANCE BILL Platelet Count 239 150 - 450 x10E3/uL [facility] INSURANCE BILL Granulocytes % 46 Not Estab. % [facility] INSURANCE BILL Lymphocytes % 42 Not Estab. % [facility] INSURANCE BILL Monocytes % 9 Not Estab. % [facility] INSURANCE BILL Eosinophils % 2 Not Estab. % [facility] INSURANCE BILL Basophils % 1 Not Estab. % [facility] INSURANCE BILL Granulocytes Absolute 1.9 1.4 - 7.0 x10E3/uL [facility] INSURANCE BILL Lymphocytes Absolute 1.7 0.7 - 3.1 x10E3/uL [facility] INSURANCE BILL Monocytes Absolute 0.4 0.1 - 0.9 x10E3/uL [facility] INSURANCE BILL Eosinophils Absolute 0.1 0.0 - 0.4 x10E3/uL [facility] INSURANCE BILL Basophils Absolute 0.0 0.0 - 0.2 x10E3/uL [facility] INSURANCE BILL Immature Granulocytes 0 Not Estab. % [facility] INSURANCE BILL Immature Granulocytes Absolute 0.0 0.0 - 0.1 x10E3/uL [facility] INSURANCE BILL Blood BLOOD SPECIMEN / Unknown 07/08/2024 4:04 PM DREDGE WORKER 07/08/2024 Narrative [facility] INSURANCE BILL - 07/09/2024 7:09 AM DREDGE WORKER Performed at: 01 - [facility] [id number] V Belt Curer: Nate Acosta PhD, Phone: [phone] Panda Allen MD LAB - HEMATOLOGY ORD ERABLES [facility] INSURANCE BILL [address] [place] [address] * (ABNORMAL) COMPREHENSIVE METABOLIC PANEL (07/08/2024 4:04 PM DREDGE WORKER) Glucose 83 70 - 99 mg/dL [facility] INSURANCE BILL BUN 15 6 - 24 mg/dL [facility] INSURANCE BILL Creatinine 0.70 0.57 - 1.00 mg/dL [facility] INSURANCE BILL eGFR by CKD-EPI 103 >59 mL/min/1.7 3 [facility] INSURANCE BILL BUN/Creatinine Ratio 21 9 - 23 [facility] INSURANCE BILL Sodium 140 134 - 144 mmol/L [facility] INSURANCE BILL Potassium 4.1 3.5 - 5.2 mmol/L [facility] INSURANCE BILL Chloride 101 96 - 106 mmol/L [facility] INSURANCE BILL CO2 26 20 - 29 mmol/L [facility] INSURANCE BILL Calcium 9.6 8.7 - 10.2 mg/dL [facility] INSURANCE BILL Protein Total 7.0 6.0 - 8.5 g/dL [facility] INSURANCE BILL Albumin 4.8 3.8 - 4.9 g/dL [facility] INSURANCE BILL Globulin Total 2.2 1.5 - 4.5 g/dL [facility] INSURANCE BILL Bilirubin Total <0.2 0.0 - 1.2 mg/dL [facility] INSURANCE BILL Alkaline Phosphatase 47 44 - 121 IU/L [facility] INSURANCE BILL AST 23 0 - 40 IU/L [facility] INSURANCE BILL ALT 38(H) 0 - 32 IU/L [facility] INSURANCE BILL Blood BLOOD SPECIMEN / Unknown 07/08/2024 4:04 PM DREDGE WORKER 07/08/2024 Narrative [facility] INSURANCE BILL - 07/09/2024 11:10 AM DREDGE WORKER Performed at: 01 - [facility] [id number] V Belt Curer: Nate Acosta PhD, Phone: [phone] Panda Allen MD LAB - CHEMISTRY MAE MCNEAL Performing Organization Address [facility] Co de Phone Number [facility] INSURANCE BILL [address] [place] [address] * HEPATITIS C ANTIBODY (09/09/2023 2:18 PM CDT) Hepatitis C Antibody Non Reactive Non Reactive [facility] INSURANCE BILL Comment: HCV antibody alone does not differentiate between previously resolved infection and active infection. Equivocal and Reactive HCV antibody results should be followed up with an HCV RNA test to support the diagnosis of active HCV infection. Blood BLOOD SPECIMEN / Unknown 09/09/2023 2:18 PM CDT 09/09/2023 Narrative Resulting Agency Comment Lab Testing performed at: [place] [id number] [facility] [id number] Panda Allen MD LAB - CHEMISTRY MAE MCNEAL Performing Organization Address City/[facility] Co de Phone Number [facility] INSURANCE BILL [address] [place] [address] from Last 3 Months or Most Recently Relevant to Health Maintenance Care Teams Deck And Hull Assembler Relationship Specialty Start Date End Date Aniya Guerra PA [address] [place] [address] PCP - General Physician Tank Erector 01/13/24
[2024-09-16 20:14] LABS: Basophils Percent Auto 0.1 % (0.2-1.2); Hematocrit 39.9 % (37.0-47.0); Immature Granulocyte Absolute 0.03 K/mm3 (0.00-0.031); Immature Granulocyte Percent A 0.2 % (0-0.5); Lymphocytes Absolute Auto 0.61 K/mm3 (0.9-3.2); Lymphocytes Percent Auto 4.5 % (18.3-44.2); Mean Corpuscular HGB Conc 35.1 g/dl (32-36); Mean Corpuscular Hemoglobin 32.9 pg (26-34); Mean Corpuscular Volume 93.7 fl (80-100); Mean Platelet Volume 12.2 fl (7.4-10.4); Monocytes Absolute Auto 0.7 K/mm3 (0.1-0.6); Monocytes Percent Auto 5.3 % (2.6-8.5); Neutrophils Absolute Auto 12.3 K/mm3 (1.3-6.7); Neutrophils Percent Auto 89.9 % (45.5-73.1); Platelet Count Result 248 k/mm3 (150-375); Red Blood Count 4.26 M/mm3 (4.2-5.4); Red Cell Distribution Width 12.2 % (11.5-14.5); White Blood Count 13.7 K/mm3 (4.5-10.0)
[2024-09-16 20:23] LABS: Alanine Aminotransferase 35 U/L (6-35); Albumin Level 4.8 g/dL (3.5-5.1); Alkaline Phosphatase 49 U/L (38-126); Anion Gap 12 mmol/L (4-12); Aspartate Amino Transferase 27 U/L (14-36); Bilirubin,Total 0.9 mg/dL (0.2-1.3); Blood Urea Nitrogen 18 mg/dL (7-17); Calcium 9.7 mg/dL (8.4-10.2); Carbon Dioxide 24 mmol/L (22-30); Chloride 101 mmol/L (98-107); Estimated CRCL calculation 68 ml/min; Estimated Glomerular Filt Rate > 60; Glucose 163 mg/dL (65-110); Lipase 77 U/L (23-300); Potassium 4.2 mmol/L (3.4-5.0); Sodium 137 mmol/L (137-145)
[2024-09-16 20:48] VITALS: BP 122/97; PULSE 89; RESP 16; O2SAT 99
--- OUTSIDE RECORDS SUMMARY | 2024-09-16 21:11 | XMS_ITS | Encounter Summary ---
Author Organization [facility] Address [address] [place] [address] Care Team Providers Care Zipper Measurer Name Role Phone AbelinobandarAniya Primary Care Pr ovider Reason for Visit * Reason Comments Vomiting Vomiting, nausea and diarrhea started 3AM today. Fatigue. Dizzy and lightheaded can't keep food and liquids down Encounter Details Date Type Department Care Team (Late st Contact Info) Description 09/16/2024 7:15 PM CDT Office Visit [facility] at [address] [address] Diane Courtney, NURSE CASE MANAGER [address] [place] [address] Nausea and vomiting, unspecified vomiting type (Primary [...] on file Legal Sex Female 1:45 AM SERVICE SUPERVISOR Gender Identity Not on file Sexual Orientation [...] Description 11/03/2024 1:35 PM CDT Hospital Encounter [facility] Operating Room [address] [place] [address] Navi Anderson MD [address] [facility] [address] [place] [address] 11/03/2024 1:35 PM CDT - 11/03/2024 7:35 PM CDT Surgery [facility] Operating Room [address] [place] [address] Navi Anderson MD [address] [place] [address] Combo Monica/Candi- FUSION SPINAL - ANTERIOR LUMBAR/THORACIC [...] [facility] Co de Phone Number [facility] [address] [place] [address], [facility] documented in this encounter Visit Diagnoses Diagnosis [...] documented as of this encounter Care Teams Zipper Measurer Relationship Specialty Start Date End Date Aniya Kennedy PA PCP - General Physician Utilization Management Nurse 07/17/23 documented as of this encounter
--- OUTSIDE RECORDS SUMMARY | 2024-09-16 21:11 | XMS_ITS | Encounter Summary ---
Author Organization [facility] Address [address] [facility] [address] [place] [address] Phone Care Team Providers Care Cover Assembler Name Role Phone Aniya Kennedy Primary Care Pr ovider Encounter Details Date Type Department Care Team (Late st Contact Info) Description 09/16/2024 Telephone [facility] Surgery [address] 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 INTERN Gender Identity Not on file Sexual Orientation [...] Description 11/03/2024 1:35 PM CDT Hospital Encounter [facility] Operating Room 1 [place] [address] Navi Anderson MD [address] [facility] [place] [address] 11/03/2024 1:35 PM CDT - 11/03/2024 7:35 PM CDT Surgery [facility] Operating Room 1 [place] [phone] Navi Anderson MD [address] [facility] [place] [address] Combo Monica/Candi- FUSION SPINAL - ANTERIOR LUMBAR/THORACIC [...] on filedocumented in this encounter Care Teams Cover Assembler Relationship Specialty Start Date End Date Aniya Kennedy PA PCP - General Physician Obstetrical Anesthesiologist 07/17/23 documented as of this encounter
--- OUTSIDE RECORDS SUMMARY | 2024-09-16 21:11 | XMS_ITS | Referral Summary ---
Author Organization [facility] [address] [place] Address [address] [place] [phone] Care Team Providers Care Manager Account Management Name Role Phone CarlyleVasile molinayandy LIN Primary Care Pr ovider Encounters Date Type Department Care Team Description 09/16/2024 7:15 PM CDT Office Visit [facility] at [address] [address] Diane Courtney NP Nausea and vomiting, unspecified vomiting type (Primary Dx); Dizziness; Lightheaded 09/16/[address] [facility] Surgery [address] [facility] Floor 1 [place] [address] Navi Christopher MD 09/02/[address] [facility] Orthopaedic Surgery [address] [facility] 6th [place] [address] [place] [address] Navi Anderson MD Spinal Surgery 08/27/2024 8:30 AM ROLLER PRINTER - 08/27/2024 11:59 PM ROLLER PRINTER Hospital Encounter [facility] [address] [place] [address] [address] [place] [address] Lumbar radiculopathy Discharge Disposition: Discharge to home or self care 08/27/2024 9:10 AM ROLLER PRINTER Office Visit [facility] Orthopaedic Surgery [address] [place] [address] Medical Office Building 4 [address] [place] [address] Navi Anderson MD Lumbar radiculopathy (Primary Dx) 08/13/2024 11:20 AM ROLLER PRINTER Ancillary Procedure [facility] Orthopaedic Surgery [address] [facility] 6th [place] [address] [place] [address] 08/13/2024 11:30 AM ROLLER PRINTER Procedure visit [facility] Orthopaedic Surgery [address] [facility] 6th [place] [address] [place] [address] Frederick Avery MD Trochanteric bursitis of left hip 08/11/[address] [facility] Orthopaedic Surgery [address] [facility] 1st Floor [address] [place] [address] Frederick Avery MD Trochanteric bursitis of left hip (Primary Dx) 08/11/[address] [facility] Orthopaedic Surgery [address] [facility] 1st Floor [address] [place] [address] Frederick Avery MD 07/27/2024 1:10 PM ROLLER PRINTER Clinical Support [facility] Bone Health [address] [place] [address] Medical Office Building 2 [address] [place] [address] Postmenopausal (Primary Dx); Screening for osteoporosis 07/27/2024 1:52 PM ROLLER PRINTER - 07/27/2024 11:59 PM ROLLER PRINTER Hospital Encounter [facility] [address] [place] [address] [address] [place] [phone] Bryanna Day MD Lumbar radiculopathy Discharge Disposition: Discharge to home or self care 07/22/2024 Telephone Radiology - [address] [facility] [address] [place] [address] Luisa Acosta, 07/16/2024 8:30 AM ROLLER PRINTER - 07/16/2024 11:59 PM ROLLER PRINTER Hospital Encounter [facility] [address] [place] [address] [address] [place] [phone] Lumbar spine pain Discharge Disposition: Discharge to home or self care 07/16/2024 8:50 AM ROLLER PRINTER Office Visit [facility] Orthopaedic Surgery [address] [place] [address] Medical Office Building 4 [address] [place] [phone] Navi Anderson MD Lumbar spine pain (Primary Dx); Lumbar radiculopathy; Trochanteric bursitis of left hip; Screening for osteoporosis 07/08/2024 12:36 PM ROLLER PRINTER - 07/08/2024 11:59 PM ROLLER PRINTER Hospital Encounter [facility] [address] [place] [address] Discharge Disposition: Discharge to home or self [...] on file Legal Sex Female 1:45 AM ROLLER PRINTER Gender Identity Not on file Sexual Orientation [...] 75.3 kg (166 lb) 07/16/2024 9:05 AM ROLLER PRINTER Height 175.3 cm (5' 9 ) 07/16/2024 9:05 AM ROLLER PRINTER Body Mass Index 24.51 07/16/2024 9:05 AM ROLLER PRINTER Plan of Treatment Upcoming Encounters Date Type Department Care Team (Latest Contact Info) Description 11/03/2024 1:35 PM CDT Hospital Encounter [facility] Operating Room 1 [place] [address] Navi Anderson MD 49[address] [facility] [place] [address] 11/03/2024 1:35 PM CDT - 11/03/2024 7:35 PM CDT Surgery [facility] Operating Room 1 [place] [address] Navi Anderson MD [address] [facility] [place] [address] Lela Anderson/Candi- FUSION SPINAL - ANTERIOR LUMBAR/THORACIC [...] Read Routine (OP Routine) 08/27/2024 10:15 AM ROLLER PRINTER Lumbar radiculopathy [place] ARTHROCENTESIS ASPIR&/INJ MAJOR JT/BURSA W/US Routine 08/13/2024 11:30 AM ROLLER PRINTER Trochanteric bursitis of left hip POCUS ASP/INJ MAJOR JOINT Schedule Routine, Read Routine (OP Routine) 08/13/2024 11:17 AM ROLLER PRINTER Trochanteric bursitis of left hip TRANSFORAMINAL EPIDURAL INJECTION LUMBAR SACRAL FIRST LEVEL BILATERAL Schedule Routine, Read Routine (OP Routine) 07/27/2024 3:07 PM ROLLER PRINTER Lumbar radiculopathy DEXA AXIAL SKELETON BONE DENSITY 1 OR MORE SITES Schedule Routine, Read Routine (OP Routine) 07/27/2024 1:44 PM ROLLER PRINTER Screening for osteoporosis XR SPINE LUMBAR COMPLETE 4 OR MORE VIEWS Schedule Routine, Read Routine (OP Routine) 07/16/2024 8:45 AM ROLLER PRINTER Lumbar spine pain NEURO MR OUTSIDE REFERENCE Routine 07/08/2024 12:36 PM ROLLER PRINTER from Last 3 Months Results * POC Influenza A/B, COVID-19 antigen (09/16/2024 7:34 PM CDT) Influenza A Ag, POC Negative Negative [facility] Influenza B Ag, POC Negative Negative [facility] COVID-19 Ag POC Presumptive Negative Presumptive Negative, Invalid [facility] Swab 09/16/2024 7:34 PM CDT us Diane Courtney NP POINT OF CARE TEST ORDERABLES Final Result Performing Organization Address City/State/[facility] Co de Phone Number [facility] EDW [address] [place] [address] * XR Scoliosis 2 or 3 Views (08/27/2024 10:15 AM ROLLER PRINTER) Anatomical Region Laterality Modality Spine N/A Computed Radiogr aphy 08/27/2024 11:3 1 AM ROLLER PRINTER Impressions 08/27/2024 11:55 AM ROLLER PRINTER 1. No scoliotic curvature or truncal balance of the spine. 2. Multilevel degenerative disc disease, up to severe at L5-S1 Dictated by: Lj Joshi M.D. The radiology attending physician has personally reviewed this study, and had reviewed and/or edited this written report and agrees with it. Electronically signed by: Butch Jackson D.O. Narrative 08/27/2024 11:55 AM ROLLER PRINTER EXAMINATION: XR SCOLIOSIS AP AND LATERAL HISTORY: [...] MD IMG XR PROCEDURES Final Result * [place] ARTHROCENTESIS ASPIR&/INJ MAJOR JT/BURSA W/US (08/13/2024 11:30 AM ROLLER PRINTER) Narrative Frederick Avery MD - 08/13/2024 11:30 AM ROLLER PRINTER Frederick Avery MD 08/20/2024 12:29 AM Greater [...] POCUS ASP/INJ MAJOR JOINT (08/13/2024 11:17 AM ROLLER PRINTER) Narrative [facility] - 08/13/2024 11:17 AM ROLLER PRINTER This procedure was performed and interpreted by the provider. Please refer to the provider's procedure/OR operative note for results. Frederick Avery MD POCUS ORDERABLES Final R esult Performing Organization Address [facility] de Phone Number [facility] * IR Transforaminal Epidural Injection Lumbar Sacral First Level Bilateral (07/27/2024 3:07 PM ROLLER PRINTER) Narrative [facility]_P[facility] - 07/27/2024 3:07 PM ROLLER PRINTER The images from this study are not interpreted by Radiology. Please refer to the physician's procedure / OR operative note. us Navi Anderson MD IMG IR PROCEDURES Final Result Performing Organization Address [facility] Co de Phone Number [facility] * DEXA Axial Skeleton Bone Density Multi Site (07/27/2024 1:44 PM ROLLER PRINTER) Anatomical Region Laterality Modality Body N/A Radiographic Anne ging Narrative 07/28/2024 2:27 PM ROLLER PRINTER Patient Name: Maggie Truong Date of : 1970 Date of scan: 07/27/2024 Bone mineral density was performed on a HoloAeternusLED Discovery Densitometer. Based on machine cross-calibration and [...] by the International Society of Clinical Densitometry. [id number] Navi Anderson MD IMG DXA PROCEDURE S Final Result * XR Spine Lumbar 4 or More Views (07/16/2024 8:45 AM ROLLER PRINTER) Anatomical Region Laterality Modality Spine N/A Computed Radiogr aphy 07/16/2024 8:51 AM ROLLER PRINTER Impressions 07/16/2024 8:51 AM ROLLER PRINTER 1. Unchanged multilevel degenerative disc disease most pronounced and severe at L5-S1 with lower lumbar facet osteoarthritis. Electronically signed by: Evangelista Hall M.D. Narrative 07/16/2024 8:51 AM ROLLER PRINTER EXAMINATION: XR SPINE LUMBAR 4 OR MORE [...] Neuro MR Outside Reference (07/08/2024 12:36 PM ROLLER PRINTER) Impressions [facility] - 07/08/2024 12:36 PM ROLLER PRINTER These images are for Reference purposes only and have not been reviewed by [facility] Radiology. There will be no report generated by a [facility] Radiologist. Narrative [facility] - 07/08/2024 12:36 PM ROLLER PRINTER EXAMINATION: Images For Reference Purposes Only Navi Anderson MD IMG MRI PROCEDURE S Final Result [facility] from Last 3 Months Insurance [facility] CHO[facility] PLUS [facility] PLUS Care Teams Manager Account Management Relationship Specialty Start Date End Date Aniya Kennedy PA PCP - General Physician Merchandise Flow Manager 07/17/23
--- OUTSIDE RECORDS SUMMARY | 2024-09-16 21:11 | XMS_ITS | Clinical Summary ---
Author Organization [facility] [address] [place] Address [address] [place] [phone] Care Team Providers Care Dimension Quarry Supervisor Name Role Phone AbelinobandarAniya Primary Care Pr [...] Description 09/16/2024 7:15 PM CDT Office Visit [facility] Care at [address] [address] Diane Courtney NP Nausea and vomiting, unspecified vomiting type (Primary Dx); Dizziness; Lightheaded 09/16/2024 Telephone [facility] Surgery [address] [facility] Floor 1 [place] [address] Navi Christopher MD 09/02/2024 Telephone [facility] Orthopaedic Surgery [address] [place] [address] 6th [place] [address] Navi Anderson MD Spinal Surgery 08/27/2024 9:10 AM BPM DEVELOPER Office Visit [facility] Orthopaedic Surgery [address] [place] [address] Medical Office Building 4 [address] [place] [address] Navi Anderson MD Lumbar radiculopathy (Primary Dx) 08/27/2024 8:30 AM BPM DEVELOPER - 08/27/2024 11:59 PM BPM DEVELOPER Hospital Encounter [facility] [address] [place] [address] [address] [place] [address] Lumbar radiculopathy Discharge Disposition: Discharge to home or self care 08/13/2024 11:30 AM BPM DEVELOPER Procedure visit [facility] Orthopaedic Surgery [address] [place] [address] 6th [place] [address] [place] [address] Frederick Avery MD Trochanteric bursitis of left hip 08/13/2024 11:20 AM BPM DEVELOPER Ancillary Procedure [facility] Orthopaedic Surgery [address] [place] [address] 6th [place] [address] [place] [address] 08/11/2024 Orders Only [facility] Orthopaedic Surgery [address] [facility] 1st Floor [address] [place] [address] Frederick Avery MD Trochanteric bursitis of left hip (Primary Dx) 08/11/2024 Telephone [facility] Orthopaedic Surgery [address] [facility] 1st Floor [address] [place] [address] Frederick Avery MD 07/27/2024 1:52 PM BPM DEVELOPER - 07/27/2024 11:59 PM BPM DEVELOPER Hospital Encounter [facility] [address] [place] [address] [address] [place] [address] Bryanna Day MD Lumbar radiculopathy Discharge Disposition: Discharge to home or self care 07/27/2024 1:10 PM BPM DEVELOPER Clinical Support [facility] [address] [place] [address] Medical Office Building 2 [address] [place] [address] Postmenopausal (Primary Dx); Screening for osteoporosis 07/22/2024 Telephone Radiology - [address] [facility] [address] [place] [address] Luisa Acosta, 07/16/2024 8:50 AM BPM DEVELOPER Office Visit [facility] Orthopaedic Surgery [address] [place] [address] Medical Office Building 4 [address] [place] [address] Navi Anderson MD Lumbar spine pain (Primary Dx); Lumbar radiculopathy; Trochanteric bursitis of left hip; Screening for osteoporosis 07/16/2024 8:30 AM BPM DEVELOPER - 07/16/2024 11:59 PM BPM DEVELOPER Hospital Encounter [facility] [address] [place] [address] [address] [place] [address] Lumbar spine pain Discharge Disposition: Discharge to home or self care 07/08/2024 12:36 PM BPM DEVELOPER - 07/08/2024 11:59 PM BPM DEVELOPER Hospital Encounter [facility] [address] [place] [address] Discharge Disposition: Discharge to home or self [...] on file Legal Sex Female 1:45 AM BPM DEVELOPER Gender Identity Not on file Sexual Orientation [...] 75.3 kg (166 lb) 07/16/2024 9:05 AM BPM DEVELOPER Height 175.3 cm (5' 9 ) 07/16/2024 9:05 AM BPM DEVELOPER Body Mass Index 24.51 07/16/2024 9:05 AM BPM DEVELOPER Plan of Treatment Upcoming Encounters Date Type Department Care Team (Latest Contact Info) Description 11/03/2024 1:35 PM CDT Hospital Encounter [facility] Operating Room 1 [place] [address] Navi Anderson MD [address] [facility] [place] [place] [address] 11/03/2024 1:35 PM CDT - 11/03/2024 7:35 PM CDT Surgery [facility] Operating Room 1 [place] [address] Navi Anderson MD [address] [facility] 6A/6B/12A [place] [address] Combo Monica/Candi- FUSION SPINAL - ANTERIOR LUMBAR/THORACIC [...] Read Routine (OP Routine) 08/27/2024 10:15 AM BPM DEVELOPER Lumbar radiculopathy [place] ARTHROCENTESIS ASPIR&/INJ MAJOR JT/BURSA W/US Routine 08/13/2024 11:30 AM BPM DEVELOPER Trochanteric bursitis of left hip POCUS ASP/INJ MAJOR JOINT Schedule Routine, Read Routine (OP Routine) 08/13/2024 11:17 AM BPM DEVELOPER Trochanteric bursitis of left hip TRANSFORAMINAL EPIDURAL INJECTION LUMBAR SACRAL FIRST LEVEL BILATERAL Schedule Routine, Read Routine (OP Routine) 07/27/2024 3:07 PM BPM DEVELOPER Lumbar radiculopathy DEXA AXIAL SKELETON BONE DENSITY 1 OR MORE SITES Schedule Routine, Read Routine (OP Routine) 07/27/2024 1:44 PM BPM DEVELOPER Screening for osteoporosis XR SPINE LUMBAR COMPLETE 4 OR MORE VIEWS Schedule Routine, Read Routine (OP Routine) 07/16/2024 8:45 AM BPM DEVELOPER Lumbar spine pain NEURO MR OUTSIDE REFERENCE Routine 07/08/2024 12:36 PM BPM DEVELOPER from Last 3 Months Results * POC Influenza A/B, COVID-19 antigen (09/16/2024 7:34 PM CDT) Influenza A Ag, POC Negative Negative [facility] Influenza B Ag, POC Negative Negative [facility] COVID-19 Ag POC Presumptive Negative Presumptive Negative, Invalid [facility] Swab 09/16/2024 7:34 PM CDT Diane Courtney NP POINT OF CARE TEST ORDERABLES Final Result [facility] [address] [place] [address], [facility] * XR Scoliosis 2 or 3 Views (08/27/2024 10:15 AM BPM DEVELOPER) Anatomical Region Laterality Modality Spine N/A Computed Radiogr aphy 08/27/2024 11:3 1 AM BPM DEVELOPER Impressions 08/27/2024 11:55 AM BPM DEVELOPER 1. No scoliotic curvature or truncal balance of the spine. 2. Multilevel degenerative disc disease, up to severe at L5-S1 Dictated by: Lj Joshi M.D. The radiology attending physician has personally reviewed this study, and had reviewed and/or edited this written report and agrees with it. Electronically signed by: Butch Jackson D.O. Narrative 08/27/2024 11:55 AM BPM DEVELOPER EXAMINATION: XR SCOLIOSIS AP AND LATERAL HISTORY: Spondylolisthesis COMPARISON: Lumbar spine radiograph 07/16/2024 FINDINGS: No truncal balance or pelvic obliquity. No significant scoliotic curvature. Vertebral body heights are maintained. Straightening of the cervical spine. Mild stepwise anterolisthesis of C3 on C4 and of C4 of C5. Multilevel degenerative disc disease, up to severe at L5-S1. Moderate lower lumbar facet arthropathy. Procedure Note Butch Jackson DO - 08/27/2024 EXAMINATION: XR SCOLIOSIS [...] MD IMG XR PROCEDURES Final Result * [place] ARTHROCENTESIS ASPIR&/INJ MAJOR JT/BURSA W/US (08/13/2024 11:30 AM BPM DEVELOPER) Narrative Frederick Avery MD - 08/13/2024 11:30 AM BPM DEVELOPER Frederick Avery MD 08/20/2024 12:29 AM Greater [...] POCUS ASP/INJ MAJOR JOINT (08/13/2024 11:17 AM BPM DEVELOPER) Narrative RAD_PACS_POCUS_[facility] - 08/13/2024 11:17 AM BPM DEVELOPER This procedure was performed and interpreted by the provider. Please refer to the provider's procedure/OR operative note for results. us Frederick Avery MD POCUS ORDERABLES Final R esult Performing Organization Address City/[facility]/ZIP Co de Phone Number [facility] * IR Transforaminal Epidural Injection Lumbar Sacral First Level Bilateral (07/27/2024 3:07 PM BPM DEVELOPER) Narrative [facility] - 07/27/2024 3:07 PM BPM DEVELOPER The images from this study are not interpreted by Radiology. Please refer to the physician's procedure / OR operative note. us Navi Anderson MD IMG IR PROCEDURES Final Result Performing Organization Address [facility] Co de Phone Number [facility] * DEXA Axial Skeleton Bone Density Multi Site (07/27/2024 1:44 PM BPM DEVELOPER) Anatomical Region Laterality Modality Body N/A Radiographic Anne ging Narrative 07/28/2024 2:27 PM BPM DEVELOPER Patient Name: Maggie Ramos Date of : 1970 Date of scan: 07/27/2024 Bone mineral density was performed on a HoloPhorm Discovery Densitometer. Based on machine cross-calibration and [...] by the International Society of Clinical Densitometry. [id number] Navi Anderson MD IMG DXA PROCEDURE S Final Result * XR Spine Lumbar 4 or More Views (07/16/2024 8:45 AM BPM DEVELOPER) Anatomical Region Laterality Modality Spine N/A Computed Radiogr aphy 07/16/2024 8:51 AM BPM DEVELOPER Impressions 07/16/2024 8:51 AM BPM DEVELOPER 1. Unchanged multilevel degenerative disc disease most pronounced and severe at L5-S1 with lower lumbar facet osteoarthritis. Electronically signed by: Evangelista Hall M.D. Narrative 07/16/2024 8:51 AM BPM DEVELOPER EXAMINATION: XR SPINE LUMBAR 4 OR MORE [...] Neuro MR Outside Reference (07/08/2024 12:36 PM BPM DEVELOPER) Impressions [facility] - 07/08/2024 12:36 PM BPM DEVELOPER These images are for Reference purposes only and have not been reviewed by [facility] Radiology. There will be no report generated by a [facility] Radiologist. Narrative [facility] - 07/08/2024 12:36 PM BPM DEVELOPER EXAMINATION: Images For Reference Purposes Only us Navi Anderson MD IMG MRI PROCEDURE S Final Result [facility] from Last 3 Months Insurance [facility] [place] [address] [facility] CHOICE PLUS Care Teams Dimension Quarry Supervisor Relationship Specialty Start Date End Date Aniya Kennedy PA PCP - General Physician Tank Maker Wood 07/17/23
--- OUTSIDE RECORDS SUMMARY | 2024-09-16 21:11 | XMS_ITS | Encounter Summary ---
Author Organization [facility] Address [address] [place] [address] Phone Care Team Providers Care Outcomes Manager Name Role Phone Aniya Kennedy Primary Care Pr ovider Reason for Referral * Consultation (Routine) - Pending Review Specialty Diagnoses / Procedures Referred By Demian t Referred To Contact Vascular Surgery Diagnoses Preop examination Lumbar radiculopathy Junaid Anderson MD [address] [facility] [place] [address] Phone: tel: fax: Junaid Christopher MD [address] [facility] 8108-10-25 [place] [address] Phone: tel: fax: Referral ID Status Reason Start Date Expiration Date Visits Requested Visits Authorized [id number] Pending Review Specialty Services Required 09/15/2024 10/15/2025 1 1 Question Answer Please select the performing region: [facility] (All Locations) [167] To provider: JUNAID CHRISTOPHER [[id number]] # of visits: 1 Comments Referral for preop examination. 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 Info sent via DocSpera as well. * Telephone Encounter - Tori [...] her down for surgery on 11/17 at [facility]. Will follow up with pt on Sat [...] Description 11/03/2024 1:35 PM CDT Hospital Encounter [facility] Operating Room 1 [place] [address] Junaid Anderson MD [address] [facility] [address] [place] [address] 11/03/2024 1:35 PM CDT - 11/03/2024 7:35 PM CDT Surgery [facility] Operating Room 1 [place] [address] Junaid Anderson MD [address] [facility] [place] [address] Combo Monica/Candi- FUSION SPINAL - ANTERIOR LUMBAR/THORACIC [...] present documented in this encounter Care Teams Outcomes Manager Relationship Specialty Start Date End Date Aniya Kennedy PA PCP - General Physician Senior Policy Analyst 07/17/23 documented as of this encounter
--- OUTSIDE RECORDS SUMMARY | 2024-09-16 21:11 | XMS_ITS | Clinical Summary ---
Author Organization [facility] Address [address] [place] [address] Care Team Providers Care Ruby Software Developer Name Role Phone Aniya Guerra Primary Care Pr ovider Source Comments [facility],non-owned Affiliates and Associated Physician Practices is amultiple site organization consisting of ambulatory clinics and hospital sitesin [place], [place], [place] and [place]. This disclosure is being madepursuant to the Care Everywhere program and may not contain all information available regarding this patient. Last updated 18.[facility] Allergies No known active allergies Medications [...] 09/04/2024 Refill [facility] - Rheumatology [address] [place] [phone] Panda Allen MD Refill Request 08/05/2024 Refill [facility] [address] [place] [phone] Panda Allen MD Refill Request 07/14/2024 2:33 PM CUSTOMER SERVICE ASSISTANT - 07/14/2024 11:59 PM CUSTOMER SERVICE ASSISTANT Hospital Encounter [facility] DIAGNOSTIC RAD OP [address] [place] [address] Panda Allen MD Discharge Disposition: Home or Self Care 07/14/2024 1:45 PM CUSTOMER SERVICE ASSISTANT - 07/14/2024 2:32 PM [facility] Hospital Encounter [facility] LAB OP DRAW STATION [address] [place] [address] Discharge Disposition: Home or Self Care 07/14/2024 1:00 PM CUSTOMER SERVICE ASSISTANT Office Visit [facility] [address] [place] [phone] Panda Allen MD Encounter for therapeutic drug [...] Sex Assigned at Female 05/21/2022 6:35 PM CUSTOMER SERVICE ASSISTANT Gender Identity Female 05/21/2022 6:35 PM CUSTOMER SERVICE ASSISTANT Sexual Orientation Straight 05/21/2022 6: 35 PM CUSTOMER SERVICE ASSISTANT Last Filed Vital Signs Vital Sign Reading Time Taken Comments Blood Pressure 109/76 07/14/2024 1:04 PM CUSTOMER SERVICE ASSISTANT Pulse 69 07/14/2024 1:04 PM CUSTOMER SERVICE ASSISTANT Temperature 36.7 C (98 F) 07/14/2024 1:04 PM CUSTOMER SERVICE ASSISTANT Respiratory Rate 16 11/01/2018 12:2 9 PM CDT Oxygen Saturation 98% 07/14/2024 1:04 PM CUSTOMER SERVICE ASSISTANT Inhaled Oxygen Concentration - - Weight 74.8 kg (164 lb 12.8 oz) 07/14/2024 1:04 PM CUSTOMER SERVICE ASSISTANT Height 177.8 cm (5' 10 ) 07/14/2024 1:04 PM CUSTOMER SERVICE ASSISTANT Body Mass Index 23.65 07/14/2024 1:04 PM CUSTOMER SERVICE ASSISTANT Plan of Treatment Upcoming Encounters Date Type Department Care Team (Late st Contact Info) Description 01/12/2025 1:20 PM CDT Office Visit [facility] Rheumatology [address] [place] [address], [place] [address] Panda Allen MD [address] [place] [address] [place] [phone] Health Maintenance Due Date Last Done Comments [...] XR CHEST 2VW Routine 07/14/2024 2:37 PM CUSTOMER SERVICE ASSISTANT Encounter for therapeutic drug monitoring URINALYSIS W/MICROSCOPIC REFLEX TO CULTURE Routine 07/08/2024 4:04 PM CUSTOMER SERVICE ASSISTANT Rheumatoid arthritis involving both hands with positive rheumatoid factor Encounter for therapeutic drug monitoring ERYTHROCYTE SEDIMENTATION RATE Routine 07/08/2024 4:04 PM CUSTOMER SERVICE ASSISTANT Rheumatoid arthritis involving both hands with positive rheumatoid factor Encounter for therapeutic drug monitoring C-REACTIVE PROTEIN Routine 07/08/2024 4: 04 PM CUSTOMER SERVICE ASSISTANT Rheumatoid arthritis involving both hands with positive rheumatoid factor Encounter for therapeutic drug monitoring COMPREHENSIVE METABOLIC PANEL Routine 07/08/2024 4:04 PM CUSTOMER SERVICE ASSISTANT Rheumatoid arthritis involving both hands with positive rheumatoid factor Encounter for therapeutic drug monitoring CBC W AUTO DIFFERENTIAL Routine 07/08/2024 4:04 PM CUSTOMER SERVICE ASSISTANT Rheumatoid arthritis involving both hands with positive rheumatoid factor Encounter for therapeutic drug monitoring HEPATITIS C ANTIBODY Routine 09/09/2023 2:18 PM CDT Rheumatoid arthritis involving both hands with positive rheumatoid factor Encounter for therapeutic drug monitoring from Last 3 Months or Most Recently Relevant to Health Maintenance Results * XR Chest 2Vw (07/14/2024 2:37 PM CUSTOMER SERVICE ASSISTANT) Anatomical Region Laterality Modality Chest Digital Radiogra phy 07/14/2024 2:54 PM CUSTOMER SERVICE ASSISTANT Narrative 07/15/2024 1:35 PM CUSTOMER SERVICE ASSISTANT PROCEDURE: XR CHEST 2VW, DATE/TIME OF EXAM: 07/14/2024 2:37 PM, LOCATION [facility] INDICATION: Z51.81: Encounter for therapeutic drug monitoring ADDITIONAL CLINICAL INFORMATION: Ordering Provider Reason For Exam: Technologist Note: Additional: COMPARISON: Chest radiograph from 03/11/2023. FINDINGS/IMPRESSION: There is no focal lung consolidation, pleural effusion, or pneumothorax. The cardiomediastinal silhouette is normal. The bony thorax is intact. The report was drafted by Sabine Parikh MD (vice president talent management) 07/14/2024 2:54 PM. IStiven MD have personally reviewed and interpreted this examination/study. > Interpreting Provider: Stiven Samaniego MD on 07/15/2024 1:35 PM Procedure Note Stiven Samaniego MD - 07/15/2024 PROCEDURE: XR CHEST 2VW, DATE/TIME OF EXAM: 07/14/2024 2:37 PM, LOCATION [facility] INDICATION: Z51.81: Encounter for therapeutic drug monitoring ADDITIONAL CLINICAL INFORMATION: Ordering Provider Reason For Exam: Technologist Note: Additional: COMPARISON: Chest radiograph from 03/11/2023. FINDINGS/IMPRESSION: There is no focal lung consolidation, pleural effusion, or pneumothorax. The cardiomediastinal silhouette is normal. The bony thorax is intact. The report was drafted by Sabine Parikh MD (vice president talent management) 07/14/2024 2:54 PM. I, Stiven Samaniego MD have personally reviewed and interpreted this examination/study. > Interpreting Provider: Stiven Samaniego MD on 07/15/2024 1:35 PM Panda Allen MD DIAGNOSTIC IMAGING O RDERABLES * (ABNORMAL) URINALYSIS W/MICROSCOPIC REFLEX TO CULTURE (07/08/2024 4:04 PM CUSTOMER SERVICE ASSISTANT) Specific [place] UA 1.024 1.005 - 1.030 [facility] INSURANCE [...] reflex to a Urine Culture. Performed at: [address] [id number] Cheesemaker Helper: Nate Acosta PhD, Phone: [phone] WBC UA None seen 0 - 5 [...] CATCH PROCEDURE / Unknown 07/08/2024 4:04 PM CUSTOMER SERVICE ASSISTANT 07/08/2024 Narrative [facility] INSURANCE BILL - 07/09/2024 3:08 PM CUSTOMER SERVICE ASSISTANT Performed at: [address] [place] [id number] Cheesemaker Helper: Nate Acosta PhD, Phone: [phone] Panda Allen MD LAB - URINALYSIS ORD ERABLES Performing Organization Address [facility] Co de Phone Number [facility] INSURANCE BILL [address] [place] [address] * C-REACTIVE PROTEIN (07/08/2024 4:04 PM CUSTOMER SERVICE ASSISTANT) C-Reactive Protein <1 0 - 10 mg/L [facility] INSURANCE BILL Blood BLOOD SPECIMEN / Unknown 07/08/2024 4:04 PM CUSTOMER SERVICE ASSISTANT 07/08/2024 Narrative [facility] INSURANCE BILL - 07/09/2024 1:08 PM CUSTOMER SERVICE ASSISTANT Performed at: [address] [place] [id number] Cheesemaker Helper: Nate Acosta PhD, Phone: [phone] Panda Allen MD LAB - CHEMISTRY ORDE RABLES Performing Organization Address City/[facility] Co de Phone Number [facility] INSURANCE BILL [address] [place] [address] * ERYTHROCYTE SEDIMENTATION RATE (07/08/2024 4:04 PM CUSTOMER SERVICE ASSISTANT) Erythrocyte Sedimentation Rate Westergren 2 0 - 40 mm/hr [facility] INSURANCE BILL Blood BLOOD SPECIMEN / Unknown 07/08/2024 4:04 PM CUSTOMER SERVICE ASSISTANT 07/08/2024 Narrative [facility] INSURANCE BILL - 07/09/2024 7:09 AM CUSTOMER SERVICE ASSISTANT Performed at: 01 - [facility] [address] [place], [place] [id number] Cheesemaker Helper: Nate Acosta PhD, Phone: [phone] Panda Allen MD LAB - HEMATOLOGY ORD ERABLES [facility] INSURANCE BILL [address] [place] [address] * CBC WITH DIFFERENTIAL (07/08/2024 4:04 PM CUSTOMER SERVICE ASSISTANT) WBC 4.1 3.4 - 10.8 x10E3/uL [facility] [...] BLOOD SPECIMEN / Unknown 07/08/2024 4:04 PM CUSTOMER SERVICE ASSISTANT 07/08/2024 Narrative [facility] INSURANCE BILL - 07/09/2024 7:09 AM CUSTOMER SERVICE ASSISTANT Performed at: 01 - [facility] [id number] Cheesemaker Helper: Nate Acosta PhD, Phone: [phone] Panda Allen MD LAB - HEMATOLOGY ORD ERABLES [facility] INSURANCE BILL [address] [place] [address] * (ABNORMAL) COMPREHENSIVE METABOLIC PANEL (07/08/2024 4:04 PM CUSTOMER SERVICE ASSISTANT) Glucose 83 70 - 99 mg/dL [facility] [...] BLOOD SPECIMEN / Unknown 07/08/2024 4:04 PM CUSTOMER SERVICE ASSISTANT 07/08/2024 Narrative [facility] INSURANCE BILL - 07/09/2024 11:10 AM CUSTOMER SERVICE ASSISTANT Performed at: 01 - [facility], [place] [id number] Cheesemaker Helper: Nate Acosta PhD, Phone: [phone] Panda Allen MD LAB - CHEMISTRY MAE MCNEAL Performing Organization Address [facility] Co de Phone Number [facility] INSURANCE BILL [address] [place] [address] * HEPATITIS C ANTIBODY (09/09/2023 2:18 PM [...] Resulting Agency Comment Lab Testing performed at: [place] [id number] [facility] [id number] Panda Allen MD LAB - CHEMISTRY MAE MCNEAL Performing Organization Address City/[facility] Co de Phone Number [facility] INSURANCE BILL [address] [place] [address] from Last 3 Months or Most Recently Relevant to Health Maintenance Care Teams Ruby Software Developer Relationship Specialty Start Date End Date Aniya Guerra PA [address] [place] [address] PCP - General Physician Saddle Cutter 01/13/24
--- NOTE | 2024-09-16 21:14 | ED_ITS ---
HPI - Nausea/Vomiting/Diarrhea General Chief complaint: Nausea/Vomiting/Diarrhea Stated complaint: Vomiting and Diarrhea since 0300 (-)Covid/Flu Time Seen by Provider: 09/16/24 20:44 History of Present Illness HPI Narrative: 54-year-old female with a history of RA, remote history pancreatitis approximately 15 years ago, s/p hysterectomy presents to the emergency department for N/V/D that started at 0330 this morning. Patient states she went to bed last night in her normal state of health around 10:00 p.m. and woke up at 0330 with nausea, vomiting and diarrhea. She has been having difficulty hydrating since. She went to urgent care had a negative COVID and flu test and was advised to come to the ED for IV hydration. She reports diffuse intermittent abdominal cramping that improves after vomiting and having diarrhea, denies focal abdominal pain. Denies fever, chest pain or shortness of breath, cough congestion, dysuria. Patient notes she had a cold over burger for dinner around 9:00 p.m. yesterday. 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 Patient is on Mounjaro for weight loss. Related Data Home Medications ?Medication ?Instructions ?Recorded ?Confirmed ?Last Taken ?Type diclofenac sodium 75 mg 150 mg PO DAILY 04/04/21 10/18/23 04/11/21 History tablet,delayed release escitalopram oxalate 10 mg tablet 10 mg PO DAILY 04/04/21 10/18/23 04/11/21 History etanercept 50 mg/mL (1 mL) 50 mg subcut WEEKLY 04/04/21 10/18/23 Unknown History subcutaneous syringe (Enbrel) hydroxychloroquine 200 mg tablet 200 mg PO DAILY 04/04/21 10/18/23 04/11/21 History sulfasalazine 500 mg tablet 1,000 mg PO BID 04/04/21 10/18/23 04/11/21 History vspponwbku-vpzcjnvqnhfjl-uxrcppog 1 cap PO Q4-6H PRN severe headache 10/18/23 10/18/23 Unknown History 50 mg-300 mg-40 mg capsule (Fioricet) estradiol 1 mg tablet 0.5 mg PO DAILY 10/18/23 10/18/23 Unknown History Allergies Allergy/AdvReac Type Severity Reaction Status Date / Time No Known Allergies Allergy Unknown Verified 09/16/24 19:59 Review of Systems 2 Review of Systems: All systems reviewed & are unremarkable except as noted in HPI and below PMFSH Past Medical History Medical History Rheumatoid arthritis History of ulcer disease Social History Social History Smoking status: Never smoker Alcohol intake: current Drinks per week: 1 Alcohol use details: occasional 2x month Substance use: never Substance use type: does not use Living arrangements: with family Additional living arrangements comments: lives with spouse Spiritual care concerns: No Exam 2 Narrative: GENERAL: Well-appearing, well-nourished, and in no acute distress. HEAD: Normocephalic, atraumatic. EYES: EOMI. ENT: Nares clear, no rhinorrhea or epistaxis. Mucous membranes dry NECK: Supple. CHEST: Clear to auscultation. No respiratory distress. HEART: Regular rate and rhythm. No murmur heard. Normal peripheral pulses. ABDOMEN: Soft, nontender, nondistended, normal active bowel sounds. No rebound, guarding or rigidity, no CVA tenderness EXTREMITIES: Normal range of motion. No edema. SKIN: Warm, dry, no rash. NEURO: No focal deficits. Alert and oriented x3 Course Vital Signs Vital signs: Vital Signs Temperature 97.5 F L 09/16/24 20:00 Pulse Rate 111 H 09/16/24 20:00 Respiratory Rate 15 09/16/24 20:00 Blood Pressure 107/73 09/16/24 20:00 Pulse Oximetry 100 09/16/24 20:00 Oxygen Delivery Room Air 09/16/24 20:00 Temperature 97.5 F L 09/16/24 20:00 Pulse Rate 109 H 09/16/24 22:36 Respiratory Rate 16 09/16/24 22:36 Blood Pressure 120/69 09/16/24 22:36 Pulse Oximetry 97 09/16/24 22:36 Oxygen Delivery Room Air 09/16/24 20:00 MDM - Nausea/Vomiting/Diarrhea MDM Narrative Medical decision making narrative: 54-year-old female with a history of RA, s/p hysterectomy and remote history pancreatitis presents to the emergency department for N/V/D that started at 0330 this morning. See HPI for further history. Vitals with tachycardia 111 which has since resolved. Patient is afebrile and nontoxic appearing. Abdomen is soft and nontender. Mucous membranes are dry, fluids provided. CBC with leukocytosis of 13.7. Chemistries are largely unremarkable. UA with 2+ ketonuria, no UTI. Lipase normal. Patient updated on results. She received IV fluids, Zofran and Pepcid with improvement. She is tolerating p.o. intake. She is reporting continued weakness, I did offer another L of IV fluids however she politely declined states she would like to get home to her bed. I encouraged clear liquid diet and increase fluid intake. Advised follow-up with PCP. Will send Zofran and Pepcid to the pharmacy. Discussed strict ED return precautions. She is agreeable with the plan verbalized understanding. Discharged in stable condition. Lab Data 09/16/24 20:09 09/16/24 20:09 Labs: Lab Results 09/16/24 09/16/24 Range/Units 20:09 22:44 WBC 13.7 H (4.5-10.0) K/mm3 RBC 4.26 (4.2-5.4) M/mm3 Hgb 14.0 (12.0-15.0) g/dL Hct 39.9 (37.0-47.0) % MCV 93.7 (80-100) fl MCH 32.9 (26-34) pg MCHC 35.1 (32-36) g/dl RDW 12.2 (11.5-14.5) % Plt Count 248 (150-375) k/mm3 MPV 12.2 H (7.4-10.4) fl Immature Gran % (Auto) 0.2 (0-0.5) % Neut % (Auto) 89.9 H (45.5-73.1) % Lymph % (Auto) 4.5 L (18.3-44.2) % [place] % (Auto) 5.3 (2.6-8.5) % Eos % (Auto) 0.0 (0-4.4) % Baso % (Auto) 0.1 L (0.2-1.2) % Lymph # (Auto) 0.61 L (0.9-3.2) K/mm3 [place] # (Auto) 0.7 H (0.1-0.6) K/mm3 Eos # (Auto) 0.0 (0-0.3) K/mm3 Baso # (Auto) 0.0 (0.0-0.1) K/mm3 Abs Immat Gran (auto) 0.03 (0.00-0.031) K/mm3 Absolute Neuts (auto) 12.3 H (1.3-6.7) K/mm3 Absolute Nucleated RBC 0.000 (0.0-0.012) K/mm3 Nucleated RBC % 0.0 (0.0-0.2) % Sodium 137 (137-145) mmol/L Potassium 4.2 (3.4-5.0) mmol/L Chloride 101 (98-107) mmol/L Carbon Dioxide 24 (22-30) mmol/L Anion Gap 12 (4-12) mmol/L BUN 18 H (7-17) mg/dL Creatinine 0.88 (0.7-1.0) mg/dL Estim Creat Clear Calc 68 ml/min Estimated GFR > 60 (59 - ) Glucose 163 H (65-110) mg/dL Calcium 9.7 (8.4-10.2) mg/dL Total Bilirubin 0.9 (0.2-1.3) mg/dL AST 27 (14-36) U/L ALT 35 (6-35) U/L Alkaline Phosphatase 49 (38-126) U/L Total Protein 8.0 (6.3-8.2) g/dL Albumin 4.8 (3.5-5.1) g/dL Lipase 77 (23-300) U/L Urine Color Yellow (Yellow) Urine Appearance Clear (Clear) Urine pH 5.0 (5.0-9.0) Ur Specific [place] 1.022 (1.001-1.035) Urine Protein Trace (Negative) mg/dL Urine Glucose (UA) Negative (Negative) mg/dL Urine Ketones 2+ H (Negative) mg/dL Ur Blood (Man) Negative (Negative) Urine Nitrate Negative (Negative) Urine Bilirubin Negative (Negative) Urine Urobilinogen 0.2 (<2.0) mg/dL Add Ur Microanalysis Reviewed Leukocyte Esterase Rfl Negative (Negative) DINO/UL Urine RBC 3-5 H (0-2) /hpf Urine WBC 0-5 (0-3) /hpf Ur Squamous Epith Cells None seen (Few) /hpf Urine Bacteria None seen /hpf Urine Casts 6-10 Discharge Plan Discharge Clinical Impression: Gastroenteritis Patient Disposition: Home, Self-Care Condition: Stable Instructions: Antibiotic Form, Gastroenteritis (ED) Additional Instructions: You were evaluated in the emergency department for nausea, vomiting and diarrhea. You were given IV fluids, Pepcid and Zofran. Your presentation is consistent with viral gastroenteritis as discussed. Please drink plenty of clear fluids including water, Gatorade and Pedialyte. Rest and stay hydrated. Follow-up closely with your primary care provider. Return to the emergency department if you develop focal abdominal pain, fever, you are unable to tolerate food or fluids, or other concerning symptoms. Patient Language: Uzbek Prescriptions: New ondansetron 4 mg tablet,disintegrating 4 mg PO Q8H Qty: 14 0RF famotidine 20 mg tablet 20 mg PO DAILY Qty: 14 0RF No Action sulfasalazine 500 mg tablet 1,000 mg PO BID Rx Instructions: take 2 500mg tablets twice daily diclofenac sodium 75 mg tablet,delayed release (DR/EC) 150 mg PO DAILY Rx Instructions: 2 75mg tablets daily hydroxychloroquine 200 mg tablet 200 mg PO DAILY escitalopram oxalate 10 mg tablet 10 mg PO DAILY Enbrel 50 mg/mL (1 mL) syringe 50 mg SUBCUT WEEKLY estradiol 1 mg tablet 0.5 mg PO DAILY cqvlekieif-hzrzvmvrannlj-rcdn [Fioricet] 50-300-40 mg capsule 1 cap PO Q4-6H PRN (Reason: severe headache) omeprazole 40 mg capsule,delayed release(DR/EC) See Rx Instructions .ROUTE .COMPLEX Qty: 30 6RF Dose Instruction: TAKE 1 CAPSULE BY MOUTH DAILY Rx Instructions: TAKE 1 CAPSULE BY MOUTH DAILY Follow-up/Referrals: Marcia,DELIO Kwan [Primary Care Provider] -
[2024-09-16] MEDS: ONDANSETRON INJ 4 MG/2 ML VIAL IV PUSH (21:30)
[2024-09-16] MEDS: SODIUM CHLORIDE 0.9% IV 1,000 ML 999 ML IV CONT (21:30)
[2024-09-16 21:31] VITALS: BP 145/100; PULSE 90; RESP 13; O2SAT 100
[2024-09-16] MEDS: FAMOTIDINE 20 MG/2 ML VIAL IV PUSH (21:31)
--- NOTE | 2024-09-16 21:34 | PC.NURSE ---
Pt. aware that PA would like a urine sample. Pt. states she cannot urinate right now but will press her call light as soon as she can.
[2024-09-16 22:36] VITALS: BP 120/69; PULSE 109; RESP 16; O2SAT 97
--- NOTE | 2024-09-16 22:37 | PC.NURSE ---
Pt. states I feel much better. I was actually able to sleep. No current episodes of vomiting.Pt. able to walk to the bathroom with a steady gait to attempt a urine sample.
--- NOTE | 2024-09-16 22:41 | PC.NURSE ---
Pt. had a hysterectomy. Bedside cancelled.
[2024-09-16 23:06] LABS: Add Urine Microscopic? YES; Appearance Urine Clear (Clear); Bacteria Urine None Seen /hpf; Bilirubin Urine Negative (Negative); Blood Urine Negative (Negative); Color Urine Yellow (Yellow); Glucose Urine UA Negative (Negative); Ketones Urine 2+ mg/dL (Negative); Leukocyte Esterase Ur Negative LEU/UL (Negative); Need Manual Microscopic Reviewed; Nitrate Urine Negative (Negative); Protein Urine Trace mg/dL (Negative); Specific Grav Ur 1.022 (1.001-1.035); Squamous Epithelial Cell Urine None Seen /hpf (Few); Urobilinogen Urine 0.2 mg/dL (<2.0); WBC Urine 0-5 /hpf (0-3)
== END 2024-09-16 23:52 | disposition home or self-care (01) ==
PROVIDERS: Student in an Organized Health Care Education/Training Program; Emergency Provider Physician Assistant; PCP Physician Assistant
DX: K52.9 Noninfective gastroenteritis and colitis, unspecified (principal); M06.9 Rheumatoid arthritis, unspecified; Z90.710 Acquired absence of both cervix and uterus; Z79.899 Other long term (current) drug therapy
CPT/HCPCS: 36415; 80053; 81001; 83690; 85025; 96361; 96374; 96375; 99284; J2405; J7030

== ENCOUNTER 2024-09-19 10:33 | Emergency (ER) | payer OTHER, SELFPAY ==
--- NOTE | ~2024-09-19 | CT_ITS ---
EXAMINATION: CT abdomen pelvis w con DATE: 09/19/2024 13:26 INDICATION: Colitis. Nausea, vomiting, and diarrhea. Blood in stool. TECHNIQUE: Computed tomography (CT) of the abdomen and pelvis was performed with 100 mL Omnipaque 350 intravenous contrast. Automated exposure control and iterative reconstruction technique were employe d. The dose-length product was 362.60 mGy-cm. COMPARISON: CT abdomen and pelvis 07/31/2015 FINDINGS: The visualized portions of the lung bases demonstrate mild atelectasis. A calcified left jose ng nodule is consistent with old granulomas disease. No pleural effusion. The heart size is normal. N o pericardial effusion. The liver, gallbladder, and adrenal glands are normal. Calcifications in the spleen are consistent with old granulomatous disease. There is pancreas divisum. There is a 13 mm cys t in right kidney. There is wall thickening of the transverse and descending colon, consistent with c olitis. The appendix is normal. There are no dilated loops of bowel. There is no significant stenosis of celiac axis, superior mesenteric artery, or inferior mesenteric artery. There are no pathological ly enlarged lymph nodes. There is no free intraperitoneal fluid. There is a 2.9 cm cyst in the left o vary, likely benign. There is severe lower lumbar spondylosis. IMPRESSION: 1. Colitis involving the transverse and descending colon. Reviewed, dictated and finalized at location A.
--- OUTSIDE RECORDS SUMMARY | 2024-09-19 10:35 | XMS_ITS | Clinical Summary ---
Author Organization [facility] [address] Address [address] [place] [phone] Care Team Providers Care Hydraulic Auto Jack Mechanic Name Role Phone AbelinobandarAniya Primary Care Pr [...] type 4 mg oral Once 09/16/2024 09/17/2024 Ended Active Problems Problem Noted Date Diagnosed Date Lumbar radiculopathy 09/15/2024 Spinal stenosis of lumbar region 09/15/2024 Epigastric pain 07/16/2024 Herpes zoster 07/16/2024 Acute upper respiratory infection 05/07/2023 Acute bronchitis 03/14/2023 Neck pain 04/21/2022 Rheumatoid arthritis involvi ng both hands with positive rheumatoid factor 01/14/2018 Rheumatoid arthritis 01/06/2004 Encounters Date Type Department Care Team Description 09/16/2024 7:15 PM CDT Office Visit [facility] Medical Group Count Includes [facility] Care at [address] [address] Diane Courtney NP Nausea and vomiting, unspecified vomiting type (Primary Dx); Dizziness; Lightheaded 09/16/2024 Telephone [facility] Surgery [address] [facility] Floor 1 [place] [address] Navi Christopher MD 09/02/2024 Telephone [facility] Orthopaedic Surgery [address] [place] [address] 6th [place] [address] [place] [address] Navi Anderson MD Spinal Surgery 08/27/2024 9:10 AM TRAFFIC REPORTER Office Visit [facility] Orthopaedic Surgery [address] [place] [address] Medical Office Building 4 [address] [place] [address] Navi Anderson MD Lumbar radiculopathy (Primary Dx) 08/27/2024 8:30 AM TRAFFIC REPORTER - 08/27/2024 11:59 PM TRAFFIC REPORTER Hospital Encounter [id number] [address] [place] [address] [address] [place] [address] Lumbar radiculopathy Discharge Disposition: Discharge to home or self care 08/13/2024 11:30 AM TRAFFIC REPORTER Procedure visit [facility] Orthopaedic Surgery [address] [place] [address] 6th [place] [address] [place] [address] Frederick Avery MD Trochanteric bursitis of left hip 08/13/2024 11:20 AM TRAFFIC REPORTER Ancillary Procedure [facility] Orthopaedic Surgery [address] [place] [address] 6th [place] [address] [place] [address] 08/11/2024 Orders Only [facility] Orthopaedic Surgery [address] [facility] [place] 1st Floor [address] [place] [address] Frederick Avery MD Trochanteric bursitis of left hip (Primary Dx) 08/11/2024 Telephone [facility] Orthopaedic Surgery [address] [facility] 1st Floor [address] [place] [address] Frederick Avery MD 07/27/2024 1:52 PM TRAFFIC REPORTER - 07/27/2024 11:59 PM TRAFFIC REPORTER Hospital Encounter [id number] [address] [place] [address] [address] [place] [address] Bryanna Day MD Lumbar radiculopathy Discharge Disposition: Discharge to home or self care 07/27/2024 1:10 PM TRAFFIC REPORTER Clinical Support [facility] [address] [place] [address] Medical Office Building 2 [address] [place] [address] Postmenopausal (Primary Dx); Screening for osteoporosis 07/22/2024 Telephone Radiology - [address] [facility] [address] [place] [address] Luisa Acosta, 07/16/2024 8:50 AM TRAFFIC REPORTER Office Visit [facility] Orthopaedic Surgery [address] [place] [address] Medical Office Building 4 [address] [place] [address] Navi Anderson MD Lumbar spine pain (Primary Dx); Lumbar radiculopathy; Trochanteric bursitis of left hip; Screening for osteoporosis 07/16/2024 8:30 AM TRAFFIC REPORTER - 07/16/2024 11:59 PM TRAFFIC REPORTER Hospital Encounter [id number] [address] [place] [address] [address] [place] [phone] Lumbar spine pain Discharge Disposition: Discharge to home or self care 07/08/2024 12:36 PM TRAFFIC REPORTER - 07/08/2024 11:59 PM TRAFFIC REPORTER Hospital Encounter [facility] [address] [place] [address] Discharge Disposition: Discharge to home or self [...] on file Legal Sex Female 1:45 AM TRAFFIC REPORTER Gender Identity Not on file Sexual Orientation [...] 75.3 kg (166 lb) 07/16/2024 9:05 AM TRAFFIC REPORTER Height 175.3 cm (5' 9 ) 07/16/2024 9:05 AM TRAFFIC REPORTER Body Mass Index 24.51 07/16/2024 9:05 AM TRAFFIC REPORTER Plan of Treatment Upcoming Encounters Date Type Department Care Team (Latest Contact Info) Description 11/03/2024 1:35 PM CDT Hospital Encounter [facility] Operating Room 1 [place] [address] Navi Anderson MD [address] [facility] [place] [address] 11/03/2024 1:35 PM CDT - 11/03/2024 7:35 PM CDT Surgery [facility] Operating Room 1 [place] [address] Navi Anderson MD [address] [facility] 6A/6B/12A [place] [address] Combo Monica/Candi- FUSION SPINAL - ANTERIOR LUMBAR/THORACIC [...] Read Routine (OP Routine) 08/27/2024 10:15 AM TRAFFIC REPORTER Lumbar radiculopathy [place] ARTHROCENTESIS ASPIR&/INJ MAJOR JT/BURSA W/US Routine 08/13/2024 11:30 AM TRAFFIC REPORTER Trochanteric bursitis of left hip POCUS ASP/INJ MAJOR JOINT Schedule Routine, Read Routine (OP Routine) 08/13/2024 11:17 AM TRAFFIC REPORTER Trochanteric bursitis of left hip TRANSFORAMINAL EPIDURAL INJECTION LUMBAR SACRAL FIRST LEVEL BILATERAL Schedule Routine, Read Routine (OP Routine) 07/27/2024 3:07 PM TRAFFIC REPORTER Lumbar radiculopathy DEXA AXIAL SKELETON BONE DENSITY 1 OR MORE SITES Schedule Routine, Read Routine (OP Routine) 07/27/2024 1:44 PM TRAFFIC REPORTER Screening for osteoporosis XR SPINE LUMBAR COMPLETE 4 OR MORE VIEWS Schedule Routine, Read Routine (OP Routine) 07/16/2024 8:45 AM TRAFFIC REPORTER Lumbar spine pain NEURO MR OUTSIDE REFERENCE Routine 07/08/2024 12:36 PM TRAFFIC REPORTER from Last 3 Months Results * POC Influenza A/B, COVID-19 antigen (09/16/2024 7:34 PM CDT) Influenza A Ag, POC Negative Negative [facility] Influenza B Ag, POC Negative Negative [facility] COVID-19 Ag POC Presumptive Negative Presumptive Negative, Invalid [facility] Swab 09/16/2024 7:34 PM CDT Diane Courtney NP POINT OF CARE TEST ORDERABLES Final Result [facility] [address] [place] [address], [facility] * XR Scoliosis 2 or 3 Views (08/27/2024 10:15 AM TRAFFIC REPORTER) Anatomical Region Laterality Modality Spine N/A Computed Radiogr aphy 08/27/2024 11:3 1 AM TRAFFIC REPORTER Impressions 08/27/2024 11:55 AM TRAFFIC REPORTER 1. No scoliotic curvature or truncal balance of the spine. 2. Multilevel degenerative disc disease, up to severe at L5-S1 Dictated by: Lj Joshi M.D. The radiology attending physician has personally reviewed this study, and had reviewed and/or edited this written report and agrees with it. Electronically signed by: Butch Jackson D.O. Narrative 08/27/2024 11:55 AM TRAFFIC REPORTER EXAMINATION: XR SCOLIOSIS AP AND LATERAL HISTORY: [...] MD IMG XR PROCEDURES Final Result * [place] ARTHROCENTESIS ASPIR&/INJ MAJOR JT/BURSA W/US (08/13/2024 11:30 AM TRAFFIC REPORTER) Narrative Frederick Avery MD - 08/13/2024 11:30 AM TRAFFIC REPORTER Frederick Avery MD 08/20/2024 12:29 AM Greater [...] POCUS ASP/INJ MAJOR JOINT (08/13/2024 11:17 AM TRAFFIC REPORTER) Narrative RAD_PACS_POCUS_[facility] - 08/13/2024 11:17 AM TRAFFIC REPORTER This procedure was performed and interpreted by the provider. Please refer to the provider's procedure/OR operative note for results. us Frederick Avery MD POCUS ORDERABLES Final R esult Performing Organization Address City/[facility]/ZIP Co de Phone Number RAD_PACS_POCUS_[facility] * IR Transforaminal Epidural Injection Lumbar Sacral First Level Bilateral (07/27/2024 3:07 PM TRAFFIC REPORTER) Narrative RAD_PACS_[facility] - 07/27/2024 3:07 PM TRAFFIC REPORTER The images from this study are not interpreted by Radiology. Please refer to the physician's procedure / OR operative note. us Navi Anderson MD IMG IR PROCEDURES Final Result Performing Organization Address [facility] Co de Phone Number RAD_PACS_[facility] * DEXA Axial Skeleton Bone Density Multi Site (07/27/2024 1:44 PM TRAFFIC REPORTER) Anatomical Region Laterality Modality Body N/A Radiographic Anne ging Narrative 07/28/2024 2:27 PM TRAFFIC REPORTER Patient Name: Maggie Ramos Date of : 1970 Date of scan: 07/27/2024 Bone mineral density was performed on a HoloCoh[employer] Discovery Densitometer. Based on machine cross-calibration and [...] by the International Society of Clinical Densitometry. [id number] Navi Anderson MD IMG DXA PROCEDURE S Final Result * XR Spine Lumbar 4 or More Views (07/16/2024 8:45 AM TRAFFIC REPORTER) Anatomical Region Laterality Modality Spine N/A Computed Radiogr aphy 07/16/2024 8:51 AM TRAFFIC REPORTER Impressions 07/16/2024 8:51 AM TRAFFIC REPORTER 1. Unchanged multilevel degenerative disc disease most pronounced and severe at L5-S1 with lower lumbar facet osteoarthritis. Electronically signed by: Evangelista Hall M.D. Narrative 07/16/2024 8:51 AM TRAFFIC REPORTER EXAMINATION: XR SPINE LUMBAR 4 OR MORE [...] Neuro MR Outside Reference (07/08/2024 12:36 PM TRAFFIC REPORTER) Impressions [facility] - 07/08/2024 12:36 PM TRAFFIC REPORTER These images are for Reference purposes only and have not been reviewed by [facility] Radiology. There will be no report generated by a [facility] Radiologist. Narrative RAD_PACS_[facility] - 07/08/2024 12:36 PM TRAFFIC REPORTER EXAMINATION: Images For Reference Purposes Only us Navi Anderson MD IMG MRI PROCEDURE S Final Result RAD_PACS_[facility] from Last 3 Months Insurance [facility] [place] [address] [facility] [employer] Care Teams Hydraulic Auto Jack Mechanic Relationship Specialty Start Date End Date Aniya Kennedy PA PCP - General Physician Tailer In 07/17/23
--- OUTSIDE RECORDS SUMMARY | 2024-09-19 10:35 | XMS_ITS | Clinical Summary ---
Author Organization [facility] Address [address] [place] [address] Care Team Providers Care Radio Antenna Installer Name Role Phone Aniya Guerra Primary Care Pr ovider Source Comments [facility],non-owned Affiliates and Associated Physician Practices is amultiple site organization consisting of ambulatory clinics and hospital sitesin [place], [place], [place] and [place]. This disclosure is being madepursuant to the Care Everywhere program and may not contain all information available regarding this patient. Last updated 18.[facility] Allergies No known active allergies Medications * [...] 09/04/2024 Refill [facility] - Rheumatology [address] [place] [address] Panda Allen MD Refill Request 08/05/2024 Refill [facility] - Rheumatology [address] [place] [address] Panda Allen MD Refill Request 07/14/2024 2:33 PM LABORER GOLF COURSE - 07/14/2024 11:59 PM LABORER GOLF COURSE Hospital Encounter [facility] DIAGNOSTIC RAD OP [address] [place] [address] Panda Allen MD Discharge Disposition: Home or Self Care 07/14/2024 1:45 PM LABORER GOLF COURSE - 07/14/2024 2:32 PM [facility] Hospital Encounter [facility] LAB OP DRAW STATION [address] [place] [address] Discharge Disposition: Home or Self Care 07/14/2024 1:00 PM LABORER GOLF COURSE Office Visit [facility] [address] [place] [address] Panda Allen MD Encounter for therapeutic drug [...] Sex Assigned at Female 05/21/2022 6:35 PM LABORER GOLF COURSE Gender Identity Female 05/21/2022 6:35 PM LABORER GOLF COURSE Sexual Orientation Straight 05/21/2022 6: 35 PM LABORER GOLF COURSE Last Filed Vital Signs Vital Sign Reading Time Taken Comments Blood Pressure 109/76 07/14/2024 1:04 PM LABORER GOLF COURSE Pulse 69 07/14/2024 1:04 PM LABORER GOLF COURSE Temperature 36.7 C (98 F) 07/14/2024 1:04 PM LABORER GOLF COURSE Respiratory Rate 16 11/01/2018 12:2 9 PM CDT Oxygen Saturation 98% 07/14/2024 1:04 PM LABORER GOLF COURSE Inhaled Oxygen Concentration - - Weight 74.8 kg (164 lb 12.8 oz) 07/14/2024 1:04 PM LABORER GOLF COURSE Height 177.8 cm (5' 10 ) 07/14/2024 1:04 PM LABORER GOLF COURSE Body Mass Index 23.65 07/14/2024 1:04 PM LABORER GOLF COURSE Plan of Treatment Upcoming Encounters Date Type Department Care Team (Late st Contact Info) Description 01/12/2025 1:20 PM CDT Office Visit [facility] - Rheumatology [address] [place] [address], [place] [address] Panda Allen MD [address] [place] [address] [place] [address] Health Maintenance Due Date Last Done Comments [...] XR CHEST 2VW Routine 07/14/2024 2:37 PM LABORER GOLF COURSE Encounter for therapeutic drug monitoring URINALYSIS W/MICROSCOPIC REFLEX TO CULTURE Routine 07/08/2024 4:04 PM LABORER GOLF COURSE Rheumatoid arthritis involving both hands with positive rheumatoid factor Encounter for therapeutic drug monitoring ERYTHROCYTE SEDIMENTATION RATE Routine 07/08/2024 4:04 PM LABORER GOLF COURSE Rheumatoid arthritis involving both hands with positive rheumatoid factor Encounter for therapeutic drug monitoring C-REACTIVE PROTEIN Routine 07/08/2024 4: 04 PM LABORER GOLF COURSE Rheumatoid arthritis involving both hands with positive rheumatoid factor Encounter for therapeutic drug monitoring COMPREHENSIVE METABOLIC PANEL Routine 07/08/2024 4:04 PM LABORER GOLF COURSE Rheumatoid arthritis involving both hands with positive rheumatoid factor Encounter for therapeutic drug monitoring CBC W AUTO DIFFERENTIAL Routine 07/08/2024 4:04 PM LABORER GOLF COURSE Rheumatoid arthritis involving both hands with positive rheumatoid factor Encounter for therapeutic drug monitoring HEPATITIS C ANTIBODY Routine 09/09/2023 2:18 PM CDT Rheumatoid arthritis involving both hands with positive rheumatoid factor Encounter for therapeutic drug monitoring from Last 3 Months or Most Recently Relevant to Health Maintenance Results * XR Chest 2Vw (07/14/2024 2:37 PM LABORER GOLF COURSE) Anatomical Region Laterality Modality Chest Digital Radiogra phy 07/14/2024 2:54 PM LABORER GOLF COURSE Narrative 07/15/2024 1:35 PM LABORER GOLF COURSE PROCEDURE: XR CHEST 2VW, DATE/TIME OF EXAM: 07/14/2024 2:37 PM, LOCATION [facility] INDICATION: Z51.81: Encounter for therapeutic drug monitoring ADDITIONAL CLINICAL INFORMATION: Ordering Provider Reason For Exam: Technologist Note: Additional: COMPARISON: Chest radiograph from 03/11/2023. FINDINGS/IMPRESSION: There is no focal lung consolidation, pleural effusion, or pneumothorax. The cardiomediastinal silhouette is normal. The bony thorax is intact. The report was drafted by Sabine Parikh MD (residential nurse) 07/14/2024 2:54 PM. IStiven MD have personally reviewed and interpreted this examination/study. > Interpreting Provider: Stiven Samaniego MD on 07/15/2024 1:35 PM Procedure Note Stiven Samaniego MD - 07/15/2024 PROCEDURE: XR CHEST 2VW, DATE/TIME OF EXAM: 07/14/2024 2:37 PM, LOCATION [facility] INDICATION: Z51.81: Encounter for therapeutic drug monitoring ADDITIONAL CLINICAL INFORMATION: Ordering Provider Reason For Exam: Technologist Note: Additional: COMPARISON: Chest radiograph from 03/11/2023. FINDINGS/IMPRESSION: There is no focal lung consolidation, pleural effusion, or pneumothorax. The cardiomediastinal silhouette is normal. The bony thorax is intact. The report was drafted by Sabine Parikh MD (residential nurse) 07/14/2024 2:54 PM. I, Stiven Samaniego MD have personally reviewed and interpreted this examination/study. > Interpreting Provider: Stiven Samaniego MD on 07/15/2024 1:35 PM Panda Allen MD DIAGNOSTIC IMAGING O RDERABLES * (ABNORMAL) URINALYSIS W/MICROSCOPIC REFLEX TO CULTURE (07/08/2024 4:04 PM LABORER GOLF COURSE) Specific [place] UA 1.024 1.005 - 1.030 [facility] INSURANCE [...] reflex to a Urine Culture. Performed at: [address] [id number] Director External Communications: Nate Acosta PhD, Phone: [phone] WBC UA None seen 0 - 5 [...] CATCH PROCEDURE / Unknown 07/08/2024 4:04 PM LABORER GOLF COURSE 07/08/2024 Narrative [facility] INSURANCE BILL - 07/09/2024 3:08 PM LABORER GOLF COURSE Performed at: [address] [place] [id number] Director External Communications: Nate Acosta PhD, Phone: [phone] Panda Allen MD LAB - URINALYSIS ORD ERABLES Performing Organization Address [facility] Co de Phone Number [facility] INSURANCE BILL [address] [place] [address] * C-REACTIVE PROTEIN (07/08/2024 4:04 PM LABORER GOLF COURSE) C-Reactive Protein <1 0 - 10 mg/L [facility] INSURANCE BILL Blood BLOOD SPECIMEN / Unknown 07/08/2024 4:04 PM LABORER GOLF COURSE 07/08/2024 Narrative [facility] INSURANCE BILL - 07/09/2024 1:08 PM LABORER GOLF COURSE Performed at: [address] [place] [id number] Director External Communications: Nate Acosta PhD, Phone: [phone] Panda Allen MD LAB - CHEMISTRY ORDE RABLES Performing Organization Address City/[facility] Co de Phone Number [facility] INSURANCE BILL [address] [place] [address] * ERYTHROCYTE SEDIMENTATION RATE (07/08/2024 4:04 PM LABORER GOLF COURSE) Erythrocyte Sedimentation Rate Westergren 2 0 - 40 mm/hr [facility] INSURANCE BILL Blood BLOOD SPECIMEN / Unknown 07/08/2024 4:04 PM LABORER GOLF COURSE 07/08/2024 Narrative [facility] INSURANCE BILL - 07/09/2024 7:09 AM LABORER GOLF COURSE Performed at: 01 - [facility] [address] [place], [place] [id number] Director External Communications: Nate Acosta PhD, Phone: [phone] Panda Allen MD LAB - HEMATOLOGY ORD ERABLES [facility] INSURANCE BILL [address] [place] [address] * CBC WITH DIFFERENTIAL (07/08/2024 4:04 PM LABORER GOLF COURSE) WBC 4.1 3.4 - 10.8 x10E3/uL [facility] [...] BLOOD SPECIMEN / Unknown 07/08/2024 4:04 PM LABORER GOLF COURSE 07/08/2024 Narrative [facility] INSURANCE BILL - 07/09/2024 7:09 AM LABORER GOLF COURSE Performed at: 01 - [facility] [id number] Director External Communications: Nate Acosta PhD, Phone: [phone] Panda Allen MD LAB - HEMATOLOGY ORD ERABLES [facility] INSURANCE BILL [address] [place] [address] * (ABNORMAL) COMPREHENSIVE METABOLIC PANEL (07/08/2024 4:04 PM LABORER GOLF COURSE) Glucose 83 70 - 99 mg/dL [facility] [...] BLOOD SPECIMEN / Unknown 07/08/2024 4:04 PM LABORER GOLF COURSE 07/08/2024 Narrative [facility] INSURANCE BILL - 07/09/2024 11:10 AM LABORER GOLF COURSE Performed at: 01 - [facility] [id number] Director External Communications: Nate Acosta PhD, Phone: [phone] Panda Allen MD LAB - CHEMISTRY MAE MCNEAL Performing Organization Address [facility] Co de Phone Number [facility] INSURANCE BILL [address] [place] [address] * HEPATITIS C ANTIBODY (09/09/2023 2:18 PM [...] Resulting Agency Comment Lab Testing performed at: [place] [id number] [facility] [id number] Panda Allen MD LAB - CHEMISTRY MAE MCNEAL Performing Organization Address City/[facility] Co de Phone Number [facility] INSURANCE BILL [address] [place] [address] from Last 3 Months or Most Recently Relevant to Health Maintenance Care Teams Radio Antenna Installer Relationship Specialty Start Date End Date Aniya Guerra PA [address] [place] [address] PCP - General Physician Flight Service Specialist 01/13/24
--- OUTSIDE RECORDS SUMMARY | 2024-09-19 10:35 | XMS_ITS | Data Portability ---
Author Organization [facility] Address [address] [place] [address] Care Team Providers Care Scrap Sawyer Name Role Phone TAMEKA CORTEZ Primary Care [...] available Lab lipid panel, serum 2023 024 [facility], [address], [place], [address], 01/10/2024 14:36:56 CMP, serum or plasma 2023 024 ROXANNE [facility], [address], [place], [address], 01/10/2024 14:36:57 CBC w/ auto diff 2023 024 [facility], [address], [place], [address], 01/10/2024 14:36:59 vitamin B12 + folate, serum or blood 07/2023 [facility], [address], [place], [address], 01/10/2024 14:36:58 TSH + free T4, serum 2023 [facility], [address], [place], [address], 01/10/2024 14:36:57 HbA1c (hemoglob in A1c), blood 2023 [facility], [address], [place], [address], 01/10/2024 14:36:59 ESR (erythroc yte sedimenta tion rate), blood 2023 [facility], [address], [place], [address], 01/10/2024 14:37:00 C reactive protein, QN, serum or plasma 2023 [facility], [address], [place], [address], 01/10/2024 14:37:00 Referral None recorded. Procedures None recorded. Surgeries None recorded. Imaging None recorded. Medication Orders Mounjaro 10 mg/0.5 mL subcutane ous pen injector 2023 024 [id number], [address] [place], [address], 01/07/2024 15:24:22 Patient TargetsNo targets recorded. Patient InstructionsNo instructions recorded. Reason for Referral None Reported. Results Created Date Observation Date Name Description Value Unit Range Abnormal Flag Note LastModifiedBy Organization Detail LastModifiedTime 01/09/20 24 01/10/2024 LIPID PANEL W/ CHOL/ HDL RATIO cholesterol, total 201 mg/dL 100-19 9 above high normal Not Available [facility] ([facility]) [address] [facility] [address], [place], [address], 01/10/2024 14:36:56 01/09/20 24 01/10/2024 LIPID PANEL W/ CHOL/ HDL RATIO triglyceride s 89 mg/dL 0-149 Not Available [facility] ([facility]) [address] [place], [address], 01/10/2024 14:36:56 01/09/20 24 01/10/2024 LIPID PANEL W/ CHOL/ HDL RATIO HDL cholesterol 49 mg/dL >39 Not Available [facility] ([facility]) [address] [place], [address], 01/10/2024 14:36:56 01/09/20 24 01/10/2024 LIPID PANEL W/ CHOL/ HDL RATIO VLDL cholesterol ervin 16 mg/dL 5-40 Not Available [facility] ([facility]) [address] [place], [address], 01/10/2024 14:36:56 01/09/20 24 01/10/2024 LIPID PANEL W/ CHOL/ HDL RATIO LDL chol calc ([facility]) 136 mg/dL 0-99 above high normal Not Available [facility] ([facility]) [address] [place], [address], 01/10/2024 14:36:56 01/09/20 24 01/10/2024 LIPID PANEL W/ CHOL/ HDL RATIO T. chol/HDL ratio 4.1 ratio 0.0-4. 4 T. Chol/ HDL Ratio Men Women 1/2 Avg.R isk 3.4 3.3 Avg.R isk 5.0 4.4 2X Avg.R isk 9.6 7.1 3X Avg.R isk 23.4 11.0 Not Available [facility] ([facility]) [address] [place], [address], 01/10/2024 14:36:56 01/09/20 24 01/10/2024 TSH+F REE T4 TSH 1.140 uIU/m L 0.450- 4.500 Not Available [facility] ([facility]) [address] [place], [address], 01/10/2024 14:36:57 01/09/20 24 01/10/2024 TSH+F REE T4 T4,free(dire ct) 1.40 NG/dL 0.82-1 .77 Not Available [facility] ([facility]) [address] [place], [address], 01/10/2024 14:36:57 01/09/20 24 01/10/2024 COMP. METAB OLIC PANEL (14) glucose 67 mg/dL 70-99 below low normal Not Available [facility] ([facility]) [address] [place], [address], 01/10/2024 14:36:57 01/09/20 24 01/10/2024 COMP. METAB OLIC PANEL (14) BUN 15 mg/dL 6-24 Not Available [facility] ([facility]) [address] [place], [address], 01/10/2024 14:36:57 01/09/20 24 01/10/2024 COMP. METAB OLIC PANEL (14) creatinine 0.94 mg/dL 0.57-1 .00 Not Available [facility] ([facility]) [address] [place], [address], 01/10/2024 14:36:57 01/09/20 24 01/10/2024 COMP. METAB OLIC PANEL (14) eGFR 73 mL/mi n/1.7 3 >59 Not Available [facility] ([facility]) [address] [place], [address], 01/10/2024 14:36:57 01/09/20 24 01/10/2024 COMP. METAB OLIC PANEL (14) BUN/creatini ne ratio 16 9-23 Not Available [facility] ([facility]) [address], [place], [address], 01/10/2024 14:36:57 01/09/20 24 01/10/2024 COMP. METAB OLIC PANEL (14) sodium 138 mmol/ L 134-14 4 Not Available [facility] ([facility]) [address], [place], [address], 01/10/2024 14:36:57 01/09/20 24 01/10/2024 COMP. METAB OLIC PANEL (14) potassium 4.0 mmol/ L 3.5-5. 2 Not Available [facility] ([facility]) [address] [place], [address], 01/10/2024 14:36:57 01/09/20 24 01/10/2024 COMP. METAB OLIC PANEL (14) chloride 104 mmol/ L 96-106 Not Available [facility] ([facility]) [address], [place], [address], 01/10/2024 14:36:57 01/09/20 24 01/10/2024 COMP. METAB OLIC PANEL (14) carbon dioxide, total 24 mmol/ L 20-29 Not Available [facility] ([facility]) [address] [facility], [place], [address], 01/10/2024 14:36:57 01/09/20 24 01/10/2024 COMP. METAB OLIC PANEL (14) calcium 9.0 mg/dL 8.7-10 .2 Not Available [facility] ([facility]) [address] [facility] [place], [address], 01/10/2024 14:36:57 01/09/20 24 01/10/2024 COMP. METAB OLIC PANEL (14) protein, total 6.8 g/dL 6.0-8. 5 Not Available [facility] ([facility]) [address] [facility] [place], [address], 01/10/2024 14:36:57 01/09/20 24 01/10/2024 COMP. METAB OLIC PANEL (14) albumin 4.4 g/dL 3.8-4. 9 Not Available [facility] ([facility]) [address] [facility], [place], [address], 01/10/2024 14:36:57 01/09/20 24 01/10/2024 COMP. METAB OLIC PANEL (14) globulin, total 2.4 g/dL 1.5-4. 5 Not Available [facility] ([facility]) [address] [facility] [place], [address], 01/10/2024 14:36:57 01/09/20 24 01/10/2024 COMP. METAB OLIC PANEL (14) bilirubin, total 0.3 mg/dL 0.0-1. 2 Not Available [facility] ([facility]) [address] [facility] [place], [address], 01/10/2024 14:36:57 01/09/20 24 01/10/2024 COMP. METAB OLIC PANEL (14) alkaline phosphatase 38 IU/L 44-121 below low normal Not Available [facility] ([facility]) [address] [facility], [place], [address], 01/10/2024 14:36:57 01/09/20 24 01/10/2024 COMP. METAB OLIC PANEL (14) AST (SGOT) 25 IU/L 0-40 Not Available [facility] ([facility]) [address] [facility] [place], [address], 01/10/2024 14:36:57 01/09/20 24 01/10/2024 COMP. METAB OLIC PANEL (14) ALT (SGPT) 33 IU/L 0-32 above high normal Not Available [facility] ([facility]) [address] [facility] [place], [address], 01/10/2024 14:36:57 01/09/20 24 01/10/2024 VITAM IN B12 AND FOLAT E vitamin B12 711 pg/mL 232-12 45 Not Available [facility] ([facility]) [address] [facility], [place], [address], 01/10/2024 14:36:58 01/09/20 24 01/10/2024 VITAM IN B12 AND FOLAT E folate (folic acid), serum 11.1 NG/mL >3.0 A serum folat e kalyani ntrat ion of less than 3.1 ng/mL is consi dered to repre sent clini ervin defic iency . Not Available [facility] ([facility]) [address] [facility], [place], [address], 01/10/2024 14:36:58 01/09/20 24 01/10/2024 HEMOG LOBIN A1C hemoglobin A1C 5.2 % 4.8-5. 6 Predi abete s: 5.7 - 6.4 Diabe leonie: >6.4 Glyce noam contr ol for adult s with diabe leonie: <7.0 Not Available [facility] ([facility]) [address] [facility], [place], [address], 01/10/2024 14:36:59 01/09/20 24 01/10/2024 CBC WITH DIFFE RENTI AL/PL ATELE T WBC 4.6 x10e3 /uL 3.4-10 .8 Not Available [facility] ([facility]) [address] [facility], [place], [address], 01/10/2024 14:36:59 01/09/20 24 01/10/2024 CBC WITH DIFFE RENTI AL/PL ATELE T RBC 3.85 x10e6 /uL 3.77-5 .28 Not Available [facility] ([facility]) [address] [facility], [place], [address], 01/10/2024 14:36:59 01/09/20 24 01/10/2024 CBC WITH DIFFE RENTI AL/PL ATELE T hemoglobin 12.3 g/dL 11.1-1 5.9 Not Available [facility] ([facility]) [address] [facility], [place], [address], 01/10/2024 14:36:59 01/09/20 24 01/10/2024 CBC WITH DIFFE RENTI AL/PL ATELE T hematocrit 36.2 % 34.0-4 6.6 Not Available [facility] ([facility]) [address] [facility], [place], [address], 01/10/2024 14:36:59 01/09/20 24 01/10/2024 CBC WITH DIFFE RENTI AL/PL ATELE T MCV 94 fL 79-97 Not Available [facility] ([facility]) [address] [facility], [place], [address], 01/10/2024 14:36:59 01/09/20 24 01/10/2024 CBC WITH DIFFE RENTI AL/PL ATELE T MCH 31.9 pg 26.6-3 3.0 Not Available [facility] ([facility]) [address] [place], [address], 01/10/2024 14:36:59 01/09/20 24 01/10/2024 CBC WITH DIFFE RENTI AL/PL ATELE T MCHC 34.0 g/dL 31.5-3 5.7 Not Available [facility] ([facility]) [address] [place], [address], 01/10/2024 14:36:59 01/09/20 24 01/10/2024 CBC WITH DIFFE RENTI AL/PL ATELE T RDW 12.3 % 11.7-1 5.4 Not Available [facility] ([facility]) [address] [place], [address], 01/10/2024 14:36:59 01/09/20 24 01/10/2024 CBC WITH DIFFE RENTI AL/PL ATELE T platelets 198 x10e3 /uL 150-45 0 Not Available [facility] ([facility]) [address] [facility], [place], [address], 01/10/2024 14:36:59 01/09/20 24 01/10/2024 CBC WITH DIFFE RENTI AL/PL ATELE T neutrophils 54 % notest ab. Not Available [facility] ([facility]) [address] [facility], [place], [address], 01/10/2024 14:36:59 01/09/20 24 01/10/2024 CBC WITH DIFFE RENTI AL/PL ATELE T lymphs 33 % notest ab. Not Available [facility] ([facility]) [address] [facility], [place], [address], 01/10/2024 14:36:59 01/09/20 24 01/10/2024 CBC WITH DIFFE RENTI AL/PL ATELE T monocytes 10 % notest ab. Not Available [facility] ([facility]) [address] [facility], [place], [address], 01/10/2024 14:36:59 01/09/20 24 01/10/2024 CBC WITH DIFFE RENTI AL/PL ATELE T eos 2 % notest ab. Not Available [facility] ([facility]) [address] [facility], [place], [address], 01/10/2024 14:36:59 01/09/20 24 01/10/2024 CBC WITH DIFFE RENTI AL/PL ATELE T basos 1 % notest ab. Not Available [facility] ([facility]) [address] [facility], [place], [address], 01/10/2024 14:36:59 01/09/20 24 01/10/2024 CBC WITH DIFFE RENTI AL/PL ATELE T neutrophils (absolute) 2.5 x10e3 /uL 1.4-7. 0 Not Available [facility] ([facility]) [address] [facility], [place], [address], 01/10/2024 14:36:59 01/09/20 24 01/10/2024 CBC WITH DIFFE RENTI AL/PL ATELE T lymphs (absolute) 1.5 x10e3 /uL 0.7-3. 1 Not Available [facility] ([facility]) [address] [facility], [place], [address], 01/10/2024 14:36:59 01/09/20 24 01/10/2024 CBC WITH DIFFE RENTI AL/PL ATELE T monocytes(ab solute) 0.5 x10e3 /uL 0.1-0. 9 Not Available [facility] ([facility]) [address] [facility], [place], [address], 01/10/2024 14:36:59 01/09/20 24 01/10/2024 CBC WITH DIFFE RENTI AL/PL ATELE T eos (absolute) 0.1 x10e3 /uL 0.0-0. 4 Not Available [facility] ([facility]) [address] [facility], [place], [address], 01/10/2024 14:36:59 01/09/20 24 01/10/2024 CBC WITH DIFFE RENTI AL/PL ATELE T baso (absolute) 0.0 x10e3 /uL 0.0-0. 2 Not Available [facility] ([facility]) [address] [place], [address], 01/10/2024 14:36:59 01/09/20 24 01/10/2024 CBC WITH DIFFE RENTI AL/PL ATELE T immature granulocytes 0 % notest ab. Not Available [facility] ([facility]) [address] [facility], [place], [address], 01/10/2024 14:36:59 01/09/20 24 01/10/2024 CBC WITH DIFFE RENTI AL/PL ATELE T immature grans (abs) 0.0 x10e3 /uL 0.0-0. 1 Not Available [facility] ([facility]) [address] [facility], [place], [address], 01/10/2024 14:36:59 01/09/20 24 01/10/2024 SEDIM ENTAT ION RATE- WESTE RGREN sedimentatio n rate-westerg vic 2 mm/HR 0-40 Not Available [facility] ([facility]) [address] [facility], [place], [address], 01/10/2024 14:37:00 01/09/20 24 01/10/2024 C-ROSALIA CTIVE PROTE IN, QUANT C-reactive protein, quant <1 mg/L 0-10 Not Available [facility] ([facility]) [address] [facility], [place], [address], 01/10/2024 14:37:00 07/08/19 25 07/09/2024 Urina lysis panel - Urine by Autom ated specific gravity UA 1.024 low: 1.005h igh: 1.03 Speci fic Gravi ty UA 1.024 1.005 - 1.030 [facility] INSUR ANCE BILL Not Available Not Available 09/19/2024 09:55:12 07/08/1907/09/2024 Urina lysis panel - Urine by Autom ated pH UA 5.5 low: 5high: 7.5 pH UA 5.5 5.0 - 7.5 [facility] INS[facility] ANCE BILL Not Available Not Available 09/19/2024 09:55:12 07/08/19 25 07/09/2024 Urina lysis panel - Urine by Autom ated color UA Yellow text: yellow Color UA Yello w Yello w [facility]CE BILL Not Available Not Available 09/19/2024 09:55:12 07/08/1907/09/2024 Urina lysis panel - Urine by Autom ated appearance Clear text: clear Appea shreyas Clear Clear [facility] BILL Not Available Not Available 09/19/2024 09:55:12 07/08/19 25 07/09/2024 Urina lysis panel - Urine by Autom ated leukocyte UA Negati ve text: negati ve Leuko cyte UA Negat fred Negat fred [facility] BILL Not Available Not Available 09/19/2024 09:55:12 07/08/19 25 07/09/2024 Urina lysis panel - Urine by Autom ated protein UA Negati ve text: negati ve/tra ce Prote in UA Negat fred Negat fred/T race [facility] BILL Not Available Not Available 09/19/2024 09:55:12 07/08/19 25 07/09/2024 Urina lysis panel - Urine by Autom ated glucose UA Negati ve text: negati ve Gluco se UA Negat fred Negat fred [facility] INS[facility] ANCE BILL Not Available Not Available 09/19/2024 09:55:12 07/08/19 25 07/09/2024 Urina lysis panel - Urine by Autom ated ketone UA Negati ve text: negati ve Keton e UA Negat fred Negat fred [facility] INS[facility] ANCE BILL Not Available Not Available 09/19/2024 09:55:12 07/08/19 25 07/09/2024 Urina lysis panel - Urine by Autom ated occult blood urine Negati ve text: negati ve Occul t Blood Urine Negat fred Negat fred [facility] INS[facility] ANCE BILL Not Available Not Available 09/19/2024 09:55:12 07/08/19 25 07/09/2024 Urina lysis panel - Urine by Autom ated bilirubin UA Negati ve text: negati ve Bilir ubin UA Negat fred Negat fred [facility] INS[facility]CE BILL Not Available Not Available 09/19/2024 09:55:12 07/08/19 25 07/09/2024 Urina lysis panel - Urine by Autom ated urobilinogen 0.2 mg/dL low: 0.2mg/ dLhigh : 1mg/dL Urobi linog en 0.2 0.2 - 1.0 mg/dL [facility] BILL Not Available Not Available 09/19/2024 09:55:12 07/08/19 25 07/09/2024 Urina lysis panel - Urine by Autom ated nitrite UA Negati ve text: negati ve Nitri te UA Negat fred Negat fred [facility] INS[facility] ANCE BILL Not Available Not Available 09/19/2024 09:55:12 07/08/19 25 07/09/2024 Urina lysis panel - Urine by Autom ated microscopic examination urine Commen t Micro scopi c Exami natio n Urine Comme nt [facility] BILL Not Available Not Available 09/19/2024 09:55:12 07/08/19 25 07/09/2024 Urina lysis panel - Urine by Autom ated microscopic examination urine See below: Micro scopi c Exami natio n Urine See below : [facility] BILL Not Available Not Available 09/19/2024 09:55:12 07/08/1907/09/2024 Urina lysis panel - Urine by Autom ated urinalysis reflex Commen t Urina lysis Refle x Comme nt [facility] BILL Not Available Not Available 09/19/2024 09:55:12 07/08/19 25 07/09/2024 Urina lysis panel - Urine by Autom ated WBC UA None seen text: 0 - 5 /hpf WBC UA None seen 0 - 5 /hpf [facility] INS[facility] ANCE BILL Not Available Not Available 09/19/2024 09:55:12 07/08/1907/09/2024 Urina lysis panel - Urine by Autom ated RBC UA None seen text: 0 - 2 /hpf RBC UA None seen 0 - 2 /hpf [facility] INS[facility] ANCE BILL Not Available Not Available 09/19/2024 09:55:12 07/08/19 25 07/09/2024 Urina lysis panel - Urine by Autom ated epithelial cells (non renal) >10 text: 0 - 10 /hpf abnormal Epith elial Cells (non renal ) >10 (A) 0 - 10 /hpf [facility] BILL Not Available Not Available 09/19/2024 09:55:12 07/08/19 25 07/09/2024 Urina lysis panel - Urine by Autom ated casts UA None seen text: none seen /lpf Casts ua None seen None seen /lpf [facility] INS[facility] ANCE BILL Not Available Not Available 09/19/2024 09:55:12 07/08/1907/09/2024 Urina lysis panel - Urine by Autom ated bacteria UA Few text: none seen/f ew Bacte mary UA Few None seen/ Few [facility] BILL Not Available Not Available 09/19/2024 09:55:12 07/08/19 25 07/09/2024 Urina lysis panel - Urine by Autom ated Unknown Analyte Perfor med at: 01 - [facility] [address] [id number] [facility] or: Acosta rodriguez PhD, Not Available Not Available 09:55:12 07/08/19 25 07/09/2024 Urina lysis panel - Urine by Autom ated interpretati on and review of laboratory results Abnorm al Not Available Not Available 09:55:12 07/08/19 25 07/09/2024 C react fred prote in [Mass /volu me] in Serum or Plasm a C-reactive protein <1 low: 0mg/Lh igh: 10mg/L C-[place] ctive Prote in <1 0 - 10 mg/L [facility] INSUR ANCE BILL Not Available Not Available 09/19/2024 09:55:12 07/08/19 25 07/09/2024 C react fred prote in [Mass /volu me] in Serum or Plasm a Unknown Analyte Perfor med at: 01 - [facility] [place] [address] [place] [id number] [facility] or: Acosta rodriguez PhD, Not Available Not Available 09:55:12 07/08/19 25 07/09/2024 Eryth rocyt e sedim entat ion rate [[place]] in Red Blood Cells by Kate murguia metho d erythrocyte sedimentatio n rate westergren 2 text: 0 - 40 mm/HR Eryth rocyt e Sedim entat ion Rate Kate murguia 2 0 - 40 mm/hr [facility] INS[facility] ANCE BILL Not Available Not Available 09/19/2024 09:55:12 07/08/1907/09/2024 Eryth rocyt e sedim entat ion rate [[place]] in Red Blood Cells by Kate gallego Unknown Analyte Perfor med at: 01 - [facility] [address] [id number] [facility] or: Acosta rodriguez PhD, Not Available Not Available 09:55:12 07/08/19 25 07/09/2024 CBC W Auto Diffe renti al panel - Blood WBC 4.1 text: 3.4 - 10.8 x10e3/ uL WBC 4.1 3.4 - 10.8 x10E3 /uL [facility] INS[facility] ANCE BILL Not Available Not Available 09/19/2024 09:55:12 07/08/19 25 07/09/2024 CBC W Auto Diffe renti al panel - Blood RBC 4.06 text: 3.77 - 5.28 x10e6/ uL RBC 4.06 3.77 - 5.28 x10E6 /uL [facility] INSUR ANCE BILL Not Available Not Available 09/19/2024 09:55:12 07/08/19 25 07/09/2024 CBC W Auto Diffe renti al panel - Blood hemoglobin 12.7 g/dL low: 11.1g/ dLhigh : 15.9g/ dL Hemog lobin 12.7 11.1 - 15.9 g/dL [facility] INS[facility] ANCE BILL Not Available Not Available 09/19/2024 09:55:12 07/08/1907/09/2024 CBC W Auto Diffe renti al panel - Blood hematocrit 38.7 % low: 34%hig h: 46.6% Hemat ocrit 38.7 34.0 - 46.6 % [facility] INS[facility] ANCE BILL Not Available Not Available 09/19/2024 09:55:12 07/08/19 25 07/09/2024 CBC W Auto Diffe renti al panel - Blood MCV 95 fL low: 79fLhi gh: 97fL MCV 95 79 - 97 fL [facility] INSUR ANCE BILL Not Available Not Available 09/19/2024 09:55:12 07/08/19 25 07/09/2024 CBC W Auto Diffe renti al panel - Blood MCH 31.3 pg low: 26.6pg high: 33pg MCH 31.3 26.6 - 33.0 pg [facility] INSUR ANCE BILL Not Available Not Available 09/19/2024 09:55:12 07/08/19 25 07/09/2024 CBC W Auto Diffe renti al panel - Blood MCHC 32.8 g/dL low: 31.5g/ dLhigh : 35.7g/ dL MCHC 32.8 31.5 - 35.7 g/dL [facility] INSUR ANCE BILL Not Available Not Available 09/19/2024 09:55:12 07/08/19 25 07/09/2024 CBC W Auto Diffe renti al panel - Blood RDW 12.4 % low: 11.7%h igh: 15.4% RDW 12.4 11.7 - 15.4 % [facility] INSUR ANCE BILL Not Available Not Available 09/19/2024 09:55:12 07/08/1907/09/2024 CBC W Auto Diffe renti al panel - Blood platelet count 239 text: 150 - 450 x10e3/ uL Plate let Count 239 150 - 450 x10E3 /uL [facility] INSUR ANCE BILL Not Available Not Available 09/19/2024 09:55:12 07/08/1907/09/2024 CBC W Auto Diffe renti al panel - Blood granulocytes % 46 % text: not estab. Granu locyt es % 46 Not Estab . % [facility] INSUR ANCE BILL Not Available Not Available 09/19/2024 09:55:12 07/08/1907/09/2024 CBC W Auto Diffe renti al panel - Blood lymphocytes % 42 % text: not estab. Lymph ocyte s % 42 Not Estab . % [facility] INSUR ANCE BILL Not Available Not Available 09/19/2024 09:55:12 07/08/1907/09/2024 CBC W Auto Diffe renti al panel - Blood monocytes % 9 % text: not estab. Monoc ytes % 9 Not Estab . % [facility] INSUR ANCE BILL Not Available Not Available 09/19/2024 09:55:12 07/08/19 25 07/09/2024 CBC W Auto Diffe renti al panel - Blood eosinophils % 2 % text: not estab. Eosin ophil s % 2 Not Estab . % [facility] INSUR ANCE BILL Not Available Not Available 09/19/2024 09:55:12 07/08/1907/09/2024 CBC W Auto Diffe renti al panel - Blood basophils % 1 % text: not estab. Basop hils % 1 Not Estab . % [facility] INSUR ANCE BILL Not Available Not Available 09/19/2024 09:55:12 07/08/19 25 07/09/2024 CBC W Auto Diffe renti al panel - Blood granulocytes absolute 1.9 text: 1.4 - 7.0 x10e3/ uL Granu locyt es Absol [place] 1.9 1.4 - 7.0 x10E3 /uL [facility] INSUR ANCE BILL Not Available Not Available 09/19/2024 09:55:12 07/08/19 25 07/09/2024 CBC W Auto Diffe renti al panel - Blood lymphocytes absolute 1.7 text: 0.7 - 3.1 x10e3/ uL Lymph ocyte s Absol [place] 1.7 0.7 - 3.1 x10E3 /uL [facility] INSUR ANCE BILL Not Available Not Available 09/19/2024 09:55:12 07/08/19 25 07/09/2024 CBC W Auto Diffe renti al panel - Blood monocytes absolute 0.4 text: 0.1 - 0.9 x10e3/ uL Monoc ytes Absol [place] 0.4 0.1 - 0.9 x10E3 /uL [facility] INSUR ANCE BILL Not Available Not Available 09/19/2024 09:55:12 07/08/19 25 07/09/2024 CBC W Auto Diffe renti al panel - Blood eosinophils absolute 0.1 text: 0.0 - 0.4 x10e3/ uL Eosin ophil s Absol [place] 0.1 0.0 - 0.4 x10E3 /uL [facility] INSUR ANCE BILL Not Available Not Available 09/19/2024 09:55:12 07/08/19 25 07/09/2024 CBC W Auto Diffe renti al panel - Blood basophils absolute 0 text: 0.0 - 0.2 x10e3/ uL Basop hils Absol [place] 0.0 0.0 - 0.2 x10E3 /uL LABCO RP INSUR ANCE BILL Not Available Not Available 09/19/2024 09:55:12 07/08/19 25 07/09/2024 CBC W Auto Diffe renti al panel - Blood immature granulocytes 0 % text: not estab. Immat ure Granu locyt es 0 Not Estab . % [facility] RP INSUR ANCE BILL Not Available Not Available 09/19/2024 09:55:12 07/08/19 25 07/09/2024 CBC W Auto Diffe renti al panel - Blood immature granulocytes absolute 0 text: 0.0 - 0.1 x10e3/ uL Immat ure Granu locyt es Absol sw[place] 0.0 0.0 - 0.1 x10E3 /uL [facility] INSUR ANCE BILL Not Available Not Available 09/19/2024 09:55:12 07/08/19 25 07/09/2024 CBC W Auto Diffe renti al panel - Blood Unknown Analyte Perfor med at: 01 - [facility] [place] [phone] Lab Direct or: Acosta rodriguez PhD, Not Available Not Available 09:55:12 07/08/1907/09/2024 Compr ehens fred metab olic 1999 panel - Serum or Plasm a glucose [mass/volume ] in serum or plasma 83 mg/dL low: 70mg/d Lhigh: 99mg/d L Gluco se 83 70 - 99 mg/dL [facility] RP INSUR ANCE BILL Not Available Not Available 09/19/2024 09:55:12 07/08/19 25 07/09/2024 Compr ehens fred metab olic 1999 panel - Serum or Plasm a BUN 15 mg/dL low: 6mg/dL high: 24mg/d L BUN 15 6 - 24 mg/dL [facility] RP INSUR ANCE BILL Not Available Not Available 09/19/2024 09:55:12 07/08/19 25 07/09/2024 Compr ehens fred metab olic 2000 panel - Serum or Plasm a creatinine [mass/volume ] in serum or plasma 0.7 mg/dL low: 0.57mg /dLhig h: 1mg/dL Creat inine 0.70 0.57 - 1.00 mg/dL [facility] RP INSUR ANCE BILL Not Available Not Available 09/19/2024 09:55:12 07/08/19 25 07/09/2024 Compr ehens fred metab olic 2000 panel - Serum or Plasm a glomerular filtration rate [volume rate/area] in serum, plasma or blood by creatinine-b ased formula (CKD-epi)/1. 73 sq M 103 mL/mi n/1.7 3 low: 59mL/m in/1.7 3 eGFR by CKD-E PI 103 >59 mL/mi n/1.7 3 [facility] INSUR ANCE BILL Not Available Not Available 09/19/2024 09:55:12 07/08/19 25 07/09/2024 Compr ehens fred metab olic 2000 panel - Serum or Plasm a BUN/creatini ne ratio 21 low: 9high: 23 BUN/C reati nine Ratio 21 9 - 23 [facility] INSUR ANCE BILL Not Available Not Available 09/19/2024 09:55:12 07/08/19 25 07/09/2024 Compr ehens fred metab olic 1999 panel - Serum or Plasm a sodium 140 mmol/ L low: 134mmo l/Lhig h: 144mmo l/L Sodiu m 140 134 - 144 mmol/ L [facility] INSUR ANCE BILL Not Available Not Available 09/19/2024 09:55:12 07/08/19 25 07/09/2024 Compr ehens fred metab olic 2000 panel - Serum or Plasm a potassium 4.1 mmol/ L low: 3.5mmo l/Lhig h: 5.2mmo l/L Potas sium 4.1 3.5 - 5.2 mmol/ L [facility] INSUR ANCE BILL Not Available Not Available 09/19/2024 09:55:12 07/08/19 25 07/09/2024 Compr ehens fred metab olic 2000 panel - Serum or Plasm a chloride 101 mmol/ L low: 96mmol /Lhigh : 106mmo l/L Chlor rashmi 101 96 - 106 mmol/ L [facility] INSUR ANCE BILL Not Available Not Available 09/19/2024 09:55:12 07/08/19 25 07/09/2024 Compr ehens fred metab olic 1999 panel - Serum or Plasm a CO2 26 mmol/ L low: 20mmol /Lhigh : 29mmol /L CO2 26 20 - 29 mmol/ L [facility] INSUR ANCE BILL Not Available Not Available 09/19/2024 09:55:12 07/08/19 25 07/09/2024 Compr ehens fred metab olic 1999 panel - Serum or Plasm a calcium 9.6 mg/dL low: 8.7mg/ dLhigh : 10.2mg /dL Calci um 9.6 8.7 - 10.2 mg/dL [facility] INSUR ANCE BILL Not Available Not Available 09/19/2024 09:55:12 07/08/19 25 07/09/2024 Compr ehens fred metab olic 1999 panel - Serum or Plasm a protein total 7 g/dL low: 6g/dLh igh: 8.5g/d L Prote in Total 7.0 6.0 - 8.5 g/dL [facility] INSUR ANCE BILL Not Available Not Available 09/19/2024 09:55:12 07/08/19 25 07/09/2024 Compr ehens fred metab olic 1999 panel - Serum or Plasm a albumin 4.8 g/dL low: 3.8g/d Lhigh: 4.9g/d L Album in 4.8 3.8 - 4.9 g/dL [facility] INSUR ANCE BILL Not Available Not Available 09/19/2024 09:55:12 07/08/19 25 07/09/2024 Compr ehens fred metab olic 1999 panel - Serum or Plasm a globulin total 2.2 g/dL low: 1.5g/d Lhigh: 4.5g/d L Globu isabel Total 2.2 1.5 - 4.5 g/dL [facility] INSUR ANCE BILL Not Available Not Available 09/19/2024 09:55:12 07/08/19 25 07/09/2024 Compr ehens fred metab olic 1999 panel - Serum or Plasm a bilirubin total <0.2 low: 0mg/dL high: 1.2mg/ dL Bilir ubin Total <0.2 0.0 - 1.2 mg/dL [facility] INSUR ANCE BILL Not Available Not Available 09/19/2024 09:55:12 07/08/19 25 07/09/2024 Compr ehens fred metab olic 2000 panel - Serum or Plasm a alkaline phosphatase 47 text: 44 - 121 IU/L Alkal ine Phosp hatas e 47 44 - 121 IU/L [facility] INSUR ANCE BILL Not Available Not Available 09/19/2024 09:55:12 07/08/19 25 07/09/2024 Compr ehens fred metab olic 2000 panel - Serum or Plasm a AST 23 text: 0 - 40 IU/L AST 23 0 - 40 IU/L [facility] INSUR ANCE BILL Not Available Not Available 09/19/2024 09:55:12 07/08/19 25 07/09/2024 Compr ehens fred metab olic 2000 panel - Serum or Plasm a ALT 38 text: 0 - 32 IU/L high ALT 38 (H) 0 - 32 IU/L [facility] INSUR ANCE BILL Not Available Not Available 09/19/2024 09:55:12 07/08/19 25 07/09/2024 Compr ehens fred metab olic 2000 panel - Serum or Plasm a Unknown Analyte Perfor med at: 01 - [facility] [place] [id number] Lab Direct or: Acosta rodriguez PhD, Not Available Not Available 09:55:12 07/08/19 25 07/09/2024 Compr ehens fred metab olic 2000 panel - Serum or Plasm a interpretati on and review of laboratory results Abnorm al Not Available Not Available 09:55:12 09/17/19 25 09/16/2024 SARS- CoV+S ARS-C oV-2 (COVI D-19) Ag [Pres ence] in Respi rator y syste m speci men by Rapid immun oassa y influenza A Ag, POC Negati ve text: negati ve Influ crissy A Ag, POC Negat fred Negat fred [facility] EDW Not Available Not Available 09/19/2024 09:55:14 09/17/19 25 09/16/2024 SARS- CoV+S ARS-C oV-2 (COVI D-19) Ag [Pres ence] in Respi rator y syste m speci men by Rapid immun oassa y influenza B Ag, POC Negati ve text: negati ve Influ crissy B Ag, POC Negat fred Negat fred [facility] CC EDW Not Available Not Available 09/19/2024 09:55:14 09/17/1909/16/2024 SARS- CoV+S ARS-C oV-2 (COVI D-19) Ag [Pres ence] in Respi rator y syste m speci men by Rapid immun oassa y covid-19 Ag POC Presum ptive Negati ve text: presum ptive negati ve, invali d COVID -19 Ag POC Presu mptiv e Negat fred Presu mptiv e Negat fred, Inval id [facility] CC EDW Not Available Not Available 09/19/2024 09:55:14 09/17/19 25 09/16/2024 SARS- CoV+S ARS-C oV-2 (COVI D-19) Ag [Pres ence] in Respi rator y syste m speci men by Rapid immun oassa y interpretati on and review of laboratory results Normal Not Available Not Available 08/23 09:55:14 04/28/20 24 04/27/2024 MRI, lumba r spine , w/o contr ast No observ ation record ed. [facility] [address] [facility] [address], [place], [address], 04/29/2024 12:29:10 06/08/20 24 06/05/2024 MAMMO , scree sourav, bilat eral No observ ation record ed. [email or web address] [facility] [address], [place], [address], 06/08/2024 15:18:32 Result Notes None recorded. Problems Name Problem SNOMED Code Status Onset Date Resolution Date Notes Provider Name and Address Organization Details Recorded Time Rheumatoid arthritis 20884933 Active 2023 DELIA Tolbert Attn: Kaleigh arevalo,[address] [facility], [place], [address], [facility] 4 15:19:10 Gastroesophage al reflux disease without esophagitis 934372622 Active 2023 DELIA Tolbert Attn: Klaeigh arevalo,[address] [facility], [place], [address], [place] - [facility] 4 15:19:11 Long-term drug therapy Active 2023 DELIA Tolbert Attn: Kaleigh arevalo,[address] [facility], [place], [address], [facility] - [facility] 4 15:19:12 Body mass index 20-24 - normal 930665146 Active 2023 DELIA Tolbert Attn: Kaleigh arevalo,[address] [facility], [place], [address], [facility] - [facility] 4 15:19:14 Problem Notes None recorded. Procedures Surgical History Date Name Laterality Status Provider Name and Address Organization Details Recorded Time Tonsillectomy completed Tay Salazar MA [facility] 01/07/2024 15:27:36 hysterectomy completed Tay Salazar MA [facility] 01/07/2024 15:27:44 Imaging Results Imaging Date Name Status [facility] Details LastModified Time 04/27/2024 MRI, lumbar spine, w/o contrast completed [facility] [address] [facility] [address], [place], [address], 04/29/2024 12:29:10 06/05/2024 MAMMO, screening, bilateral completed [email or web address] [facility] [address], [place], [address], 06/08/2024 15:18:32 Procedure Notes None recorded. Medical [...] Organization Details Last Updated DateTime 18 /min 86137.6 6 g 23.1 kg/m2 177.8 cm 100 % 100 % 71 /min 132 mm[Hg] 88 mm[Hg] Tay Salazar MA [facility] 15:00:39 Date Recorded Systolic blood pressure Diastolic blood pressure Provider Name and Address Organization Details Last Updated DateTime 01/07/2024 124 mm[Hg] 80 mm[Hg] DELIA Tolbert Attn: Accounting,[address] [place], [address], [facility] 01/07/2024 15:30:38 Social History Question Answer Notes LastModified by Organizat ion Details LastModified Time Tobacco Smoking Status Former Smoker Tay Salazar MA [facility], [facility] 01/07/2024 15:28:20 Do You Have An Advance [...] Anxious, Or Unable To Sleep At Night)? LC6380-7 Information not available 01/07/2024 Do You Use [...] Recorded Time zoster recombinant 4 completed Jessica [place] null, [place] [facility] 03/23/2024 15:48:51 Influenza, MDCK, quadrivalent, PF 8 completed [place] [facility] 03/23/2024 15:48:51 COVID-19, mRNA, LNP-S, PF, 100 mcg/0.5mL dose or 50 mcg/0.25mL dose 1 completed [place] [facility] 03/23/2024 15:48:51 COVID-19, mRNA, LNP-S, PF, 100 mcg/0.5mL dose or 50 mcg/0.25mL dose 1 completed [place] [facility] 03/23/2024 15:48:51 COVID-19, mRNA, LNP-S, PF, 100 mcg/0.5mL dose or 50 mcg/0.25mL dose 1 completed [place] [facility] 03/23/2024 15:48:51 Influenza, split virus, trivalent, preservative 4 completed [place] [facility] 03/23/2024 15:48:51 Influenza, split virus, quadrivalent, PF 9 completed [place] [facility] 03/23/2024 15:48:51 Influenza, split virus, quadrivalent, PF 1 completed [place] [facility] 03/23/2024 15:48:51 Influenza, MDCK, trivalent, PF 4 completed [place] [facility] 03/23/2024 15:48:51 zoster recombinant 4 completed [place] [facility] 03/23/2024 15:49:23 influenza, unspecified formulation 4 completed Tay Salazar [place] [facility] 05/25/2024 14:40:47 Past Encounters Encounter ID Performer Location Encounter Start Date Encounter Closed Date Diagnosis/Indication Diagnosis SNOMED-CT Code Diagnosis ICD10 Code Diagnosis Note [id number] DELIA Tolbert [facility] [place] [address] [place] [address] 01/07/2024 14:28:02 01/07/2024 15:38:21 Body mass index 20-24 - normal 562778727 Z68.23 BMI is 23.1 Adult [facility] th examination 453940433 Z00.01 Annual wellness exam completed Rheumatoid arthritis 698 [address]172 M06.9 We will add on a sed rate and C-reactive protein for her so that she has updated labs for her rheumatolo gist appointmen t Long-term drug therapy 978217172 Z79.899 All routine labs are due fasting Gastroesop hageal reflux disease without esophagitis 927074510 K21.9 Stable on omeprazole 40 mg daily Renewal of prescription 710905450 Z76.0 Refill on Mounjaro 10 mg weekly maintenanc e dosing which she does extend dosing interval to every 10-14 days Cholesterol screening 27 0219298 Z13.220 Fasting lipid panel is due Diabetes m ellitus screening 980794945 Z13.1 Annual A1c screening is due Health Concerns Section Related Observation LastModified by Organization Detai ls LastModified Time None Recorded Concern Status LastModified by Organization Details LastModified Time None Recorded Advance Directives Directive N: Payers Encounter Date Sequence Insurance Name Policy Number Policy Diaz Covered Member ID Diaz Member ID Guarantor Name 01/07/2024 1 [facility] Justin Ramos [id number] Maggie Ramos Notes Date Note Type Note Provider Name and Address Organization Details Recorded Time 01/07/2024 text/html Patient has hist ory of rheumatoid arthritis and is followed by risk control field representative routinely. She would like for us to [...] her health. DELIA Tolbert Attn: Accounting,[address] [facility], [place], [address], [place] [facility] 01/22/2024 10:58:37 OBGyn Episode No OBEpisode recorded.
--- OUTSIDE RECORDS SUMMARY | 2024-09-19 10:35 | XMS_ITS | Referral Summary ---
Author Organization [facility] [address] [place] [address] Care Team Providers Care Spot Welder Line Name Role Phone CarlyleVasile molinayandy LIN Primary Care Pr ovider Encounters Date Type Department Care Team Description 09/16/2024 7:15 PM CDT Office Visit [facility] at [address] [address] Diane Courtney NP Nausea and vomiting, unspecified vomiting type (Primary Dx); Dizziness; Lightheaded 09/16/2024 Telephone [facility] Surgery [address] [facility] Floor 1 [place] [address] Navi Christopher MD 09/02/2024 Telephone [facility] Orthopaedic Surgery [address] [facility] 6th [place] [address] [place] [address] Navi Anderson MD Spinal Surgery 08/27/2024 8:30 AM MECHANICAL TECHNICIAN - 08/27/2024 11:59 PM MECHANICAL TECHNICIAN Hospital Encounter [id number] [address] [place] [address] [address] [place] [address] Lumbar radiculopathy Discharge Disposition: Discharge to home or self care 08/27/2024 9:10 AM MECHANICAL TECHNICIAN Office Visit [facility] Orthopaedic Surgery [address] [place] [address] Medical Office Building 4 [address] [place] [phone] Navi Anderson MD Lumbar radiculopathy (Primary Dx) 08/13/2024 11:20 AM MECHANICAL TECHNICIAN Ancillary Procedure [facility] Orthopaedic Surgery [address] [facility] 6th [place] [address] [place] [address] 08/13/2024 11:30 AM MECHANICAL TECHNICIAN Procedure visit [facility] Orthopaedic Surgery [address] [facility] 6th [place] [address] [place] [address] Frederick Avery MD Trochanteric bursitis of left hip 08/11/2024 Orders Only [facility] Orthopaedic Surgery [address] [facility] 1st Floor [address] [place] [address] Frederick Avery MD Trochanteric bursitis of left hip (Primary Dx) 08/11/2024 Telephone [facility] Orthopaedic Surgery [address] [facility] 1st Floor [address] [place] [address] Frederick Avery MD 07/27/2024 1:10 PM MECHANICAL TECHNICIAN Clinical Support [facility] Bone Health [address] [place] [address] Medical Office Building 2 [address] [place] [address] Postmenopausal (Primary Dx); Screening for osteoporosis 07/27/2024 1:52 PM MECHANICAL TECHNICIAN - 07/27/2024 11:59 PM MECHANICAL TECHNICIAN Hospital Encounter [id number] [address] [place] [address] [address] [place] [phone] Bryanna Day MD Lumbar radiculopathy Discharge Disposition: Discharge to home or self care 07/22/2024 Telephone Radiology - [address] [facility] [address] [place] [address] Luisa Acosta, 07/16/2024 8:30 AM MECHANICAL TECHNICIAN - 07/16/2024 11:59 PM MECHANICAL TECHNICIAN Hospital Encounter [id number] [address] [place] [address] [address] [place] [phone] Lumbar spine pain Discharge Disposition: Discharge to home or self care 07/16/2024 8:50 AM MECHANICAL TECHNICIAN Office Visit [facility] Orthopaedic Surgery [address] [place] [address] Medical Office Building 4 [address] [place] [address] Navi Anderson MD Lumbar spine pain (Primary Dx); Lumbar radiculopathy; Trochanteric bursitis of left hip; Screening for osteoporosis 07/08/2024 12:36 PM MECHANICAL TECHNICIAN - 07/08/2024 11:59 PM MECHANICAL TECHNICIAN Hospital Encounter [facility] Rad[facility] [address] [place] [id number] Discharge Disposition: Discharge to home or self [...] on file Legal Sex Female 1:45 AM MECHANICAL TECHNICIAN Gender Identity Not on file Sexual Orientation [...] 75.3 kg (166 lb) 07/16/2024 9:05 AM MECHANICAL TECHNICIAN Height 175.3 cm (5' 9 ) 07/16/2024 9:05 AM MECHANICAL TECHNICIAN Body Mass Index 24.51 07/16/2024 9:05 AM MECHANICAL TECHNICIAN Plan of Treatment Upcoming Encounters Date Type Department Care Team (Latest Contact Info) Description 11/03/2024 1:35 PM CDT Hospital Encounter [facility] Operating Room 1 [place] [address] Navi Anderson MD [address] [facility] [place] [address] 11/03/2024 1:35 PM CDT - 11/03/2024 7:35 PM CDT Surgery [facility] Operating Room 1 [place] [address] Navi Anderson MD [address] [place] [address] Lela Anderson/Candi- FUSION SPINAL - ANTERIOR LUMBAR/THORACIC [...] Read Routine (OP Routine) 08/27/2024 10:15 AM MECHANICAL TECHNICIAN Lumbar radiculopathy [place] ARTHROCENTESIS ASPIR&/INJ MAJOR JT/BURSA W/US Routine 08/13/2024 11:30 AM MECHANICAL TECHNICIAN Trochanteric bursitis of left hip POCUS ASP/INJ MAJOR JOINT Schedule Routine, Read Routine (OP Routine) 08/13/2024 11:17 AM MECHANICAL TECHNICIAN Trochanteric bursitis of left hip TRANSFORAMINAL EPIDURAL INJECTION LUMBAR SACRAL FIRST LEVEL BILATERAL Schedule Routine, Read Routine (OP Routine) 07/27/2024 3:07 PM MECHANICAL TECHNICIAN Lumbar radiculopathy DEXA AXIAL SKELETON BONE DENSITY 1 OR MORE SITES Schedule Routine, Read Routine (OP Routine) 07/27/2024 1:44 PM MECHANICAL TECHNICIAN Screening for osteoporosis XR SPINE LUMBAR COMPLETE 4 OR MORE VIEWS Schedule Routine, Read Routine (OP Routine) 07/16/2024 8:45 AM MECHANICAL TECHNICIAN Lumbar spine pain NEURO MR OUTSIDE REFERENCE Routine 07/08/2024 12:36 PM MECHANICAL TECHNICIAN from Last 3 Months Results * POC Influenza A/B, COVID-19 antigen (09/16/2024 7:34 PM CDT) Influenza A Ag, POC Negative Negative [facility] Influenza B Ag, POC Negative Negative [facility] COVID-19 Ag POC Presumptive Negative Presumptive Negative, Invalid [facility] Swab 09/16/2024 7:34 PM CDT us Diane Courtney NP POINT OF CARE TEST ORDERABLES Final Result Performing Organization Address City/State/[facility] Co de Phone Number [facility] [address] [place] [address] * XR Scoliosis 2 or 3 Views (08/27/2024 10:15 AM MECHANICAL TECHNICIAN) Anatomical Region Laterality Modality Spine N/A Computed Radiogr aphy 08/27/2024 11:3 1 AM MECHANICAL TECHNICIAN Impressions 08/27/2024 11:55 AM MECHANICAL TECHNICIAN 1. No scoliotic curvature or truncal balance of the spine. 2. Multilevel degenerative disc disease, up to severe at L5-S1 Dictated by: Lj Joshi M.D. The radiology attending physician has personally reviewed this study, and had reviewed and/or edited this written report and agrees with it. Electronically signed by: Butch Jackson D.O. Narrative 08/27/2024 11:55 AM MECHANICAL TECHNICIAN EXAMINATION: XR SCOLIOSIS AP AND LATERAL HISTORY: [...] MD IMG XR PROCEDURES Final Result * [place] ARTHROCENTESIS ASPIR&/INJ MAJOR JT/BURSA W/US (08/13/2024 11:30 AM MECHANICAL TECHNICIAN) Narrative Frederick Avery MD - 08/13/2024 11:30 AM MECHANICAL TECHNICIAN Frederick Avery MD 08/20/2024 12:29 AM Greater [...] POCUS ASP/INJ MAJOR JOINT (08/13/2024 11:17 AM MECHANICAL TECHNICIAN) Narrative [facility] - 08/13/2024 11:17 AM MECHANICAL TECHNICIAN This procedure was performed and interpreted by the provider. Please refer to the provider's procedure/OR operative note for results. Frederick Avery MD POCUS ORDERABLES Final R esult Performing Organization Address [facility] de Phone Number [facility] * IR Transforaminal Epidural Injection Lumbar Sacral First Level Bilateral (07/27/2024 3:07 PM MECHANICAL TECHNICIAN) Narrative [facility] - 07/27/2024 3:07 PM MECHANICAL TECHNICIAN The images from this study are not interpreted by Radiology. Please refer to the physician's procedure / OR operative note. us Navi Anderson MD IMG IR PROCEDURES Final Result Performing Organization Address [facility] Co de Phone Number [facility] * DEXA Axial Skeleton Bone Density Multi Site (07/27/2024 1:44 PM MECHANICAL TECHNICIAN) Anatomical Region Laterality Modality Body N/A Radiographic Anne ging Narrative 07/28/2024 2:27 PM MECHANICAL TECHNICIAN Patient Name: Maggie Truong Date of : 1970 Date of scan: 07/27/2024 Bone mineral density was performed on a [employer] Discovery Densitometer. Based on machine cross-calibration and [...] by the International Society of Clinical Densitometry. [id number] Navi Anderson MD IMG DXA PROCEDURE S Final Result * XR Spine Lumbar 4 or More Views (07/16/2024 8:45 AM MECHANICAL TECHNICIAN) Anatomical Region Laterality Modality Spine N/A Computed Radiogr aphy 07/16/2024 8:51 AM MECHANICAL TECHNICIAN Impressions 07/16/2024 8:51 AM MECHANICAL TECHNICIAN 1. Unchanged multilevel degenerative disc disease most pronounced and severe at L5-S1 with lower lumbar facet osteoarthritis. Electronically signed by: Evangelista Hall M.D. Narrative 07/16/2024 8:51 AM MECHANICAL TECHNICIAN EXAMINATION: XR SPINE LUMBAR 4 OR MORE [...] Neuro MR Outside Reference (07/08/2024 12:36 PM MECHANICAL TECHNICIAN) Impressions [facility] - 07/08/2024 12:36 PM MECHANICAL TECHNICIAN These images are for Reference purposes only and have not been reviewed by [facility] Radiology. There will be no report generated by a [facility] Radiologist. Narrative [facility] - 07/08/2024 12:36 PM MECHANICAL TECHNICIAN EXAMINATION: Images For Reference Purposes Only Navi Anderson MD IMG MRI PROCEDURE S Final Result [facility] from Last 3 Months Insurance [facility] CHOICE PLUS [facility] CHOICE PLUS Care Teams Spot Welder Line Relationship Specialty Start Date End Date Aniya Kennedy PA PCP - General Physician Media Production Manager 07/17/23
--- OUTSIDE RECORDS SUMMARY | 2024-09-19 10:36 | XMS_ITS | Data Portability ---
Author Organization [facility] [employer] ([employer]), Main Office Address [address] [place] [address] Assessment No assessment recorded. Plan of Treatment Reminders Order Date Submit Date Provider Last Modified By Organization Details Last Modified Time Details Appointments None recorde d. Lab TSH + free T4, serum 023 11/21/19 [place] [address] [facility], [address], [place], [address], 3 12:06:37 CBC w/ auto diff 023 11/21/19 [place] [address] [facility], [address], [place], [address], 3 12:06:37 lipid panel, serum 023 11/21/19 [place] [address] [facility], [address], [place], [address], 3 12:06:37 HbA1c (hemogl obin A1c), blood 023 11/21/19 [place] [address] [facility], [address], [place], [address], 3 12:06:37 Referral None recorde d. Procedures [...] Not Available [facility] ([facility]) [address] [place], [address], 12/10/2020 09:11:27 12/10/19 21 12/10/2020 lipid panel , serum cholesterol, total 214 mg/dL 100-19 9 above high normal Not Available [facility] ([facility]) [address] [place], [address], 12/10/2020 09:11:26 12/10/19 21 12/10/2020 lipid panel , serum triglyceride s 206 mg/dL 0-149 above high normal Not Available [facility] ([facility]) [address] [facility], [place], [address], 12/10/2020 09:11:26 12/10/19 21 12/10/2020 lipid panel , serum HDL cholesterol 46 mg/dL >39 Not Available [facility] ([facility]) [address] [place], [address], 12/10/2020 09:11:26 12/10/19 21 12/10/2020 lipid panel , serum VLDL cholesterol ervin 37 mg/dL 5-40 Not Available [facility] ([facility]) [address] [place], [address], 12/10/2020 09:11:26 12/10/19 21 12/10/2020 lipid panel , serum LDL chol calc ([facility]) 131 mg/dL 0-99 above high normal Not Available [facility] ([facility]) [address] [place], [address], 12/10/2020 09:11:26 12/10/19 21 12/10/2020 lipid panel , serum comment: psychiatric np Not Available [facility] ([facility]) [address] [place], [address], 12/10/2020 09:11:26 12/10/19 21 12/10/2020 lipid panel , serum T. chol/HDL ratio 4.7 ratio 0.0-4. 4 above high normal T. Chol/ HDL Ratio Men Women 1/2 Avg.R isk 3.4 3.3 Avg.R isk 5.0 4.4 2X Avg.R isk 9.6 7.1 3X Avg.R isk 23.4 11.0 Not Available [facility] ([facility]) [address] [place], [address], 12/10/2020 09:11:26 12/10/19 21 12/10/2020 urina lysis compl ete, refle x cultu re specific gravity 1.006 1.005- 1.030 Not Available [facility] ([facility]) [address] [place], [address], 12/10/2020 09:11:26 12/10/19 21 12/10/2020 urina lysis compl ete, refle x cultu re pH 6.5 5.0-7. 5 Not Available [facility] ([facility]) [address] [place], [address], 12/10/2020 09:11:26 12/10/19 21 12/10/2020 urina lysis compl ete, refle x cultu re urine-color yellow yellow Not Available [facility] ([facility]) [address] [place], [address], 12/10/2020 09:11:26 12/10/19 21 12/10/2020 urina lysis compl ete, refle x cultu re appearance clear clear Not Available [facility] ([facility]) [address] [place], [address], 12/10/2020 09:11:26 12/10/19 21 12/10/2020 urina lysis compl ete, refle x cultu re WBC esterase negati ve negati ve Not Available [facility] ([facility]) [address] [place], [address], 12/10/2020 09:11:26 12/10/19 21 12/10/2020 urina lysis compl ete, refle x cultu re protein negati ve negati ve/tra ce Not Available [facility] ([facility]) [address] [place], [address], 12/10/2020 09:11:26 12/10/1912/10/2020 urina lysis compl ete, refle x cultu re glucose negati ve negati ve Not Available [facility] ([facility]) [address] [place], [address], 12/10/2020 09:11:26 12/10/19 21 12/10/2020 urina lysis compl ete, refle x cultu re ketones negati ve negati ve Not Available [facility] ([facility]) [address] [place], [address], 12/10/2020 09:11:26 12/10/19 21 12/10/2020 urina lysis compl ete, refle x cultu re occult blood negati ve negati ve Not Available [facility] ([facility]) [address] [place], [address], 12/10/2020 09:11:26 12/10/1912/10/2020 urina lysis compl ete, refle x cultu re bilirubin negati ve negati ve Not Available [facility] ([facility]) [address] [place], [address], 12/10/2020 09:11:26 06/18/20 21 12/10/2020 urina lysis compl ete, refle x cultu re urobilinogen ,semi-qn 0.2 mg/dL 0.2-1. 0 Not Available [facility] ([facility]) [address] [place], [address], 12/10/2020 09:11:26 12/10/19 21 12/10/2020 urina lysis compl ete, refle x cultu re nitrite, urine negati ve negati ve Not Available [facility] ([facility]) [address] [place], [address], 12/10/2020 09:11:26 12/10/1912/10/2020 urina lysis compl ete, refle x cultu re microscopic examination commen t Micro scopi c not indic ated and not perfo rmed. Not Available [facility] ([facility]) [address] [place], [address], 12/10/2020 09:11:26 12/10/1912/10/2020 urina lysis compl ete, refle x cultu re urinalysis reflex commen t This speci men will not refle x to a Urine Cultu re. Not Available [facility] ([facility]) [address] [place], [address], 12/10/2020 09:11:26 12/10/1912/10/2020 TSH + free T4, serum TSH 1.300 uIU/m L 0.450- 4.500 Not Available [facility] ([facility]) [address] [place], [address], 12/10/2020 09:11:26 12/10/1912/10/2020 TSH + free T4, serum T4,free(dire ct) 1.16 NG/dL 0.82-1 .77 Not Available [facility] ([facility]) [address] [place], [address], 12/10/2020 09:11:26 12/14/19 21 12/13/2020 US, trans vagin al No observ ation record ed. [id number] , [place], [address], 08/22/2022 18:22:17 02/08/20 22 02/05/2022 MAMMO , scree sourav, digit al, bilat eral No observ ation record ed. [id number] [facility] [address], [place], [address], 08/22/2022 18:22:17 Result Notes None recorded. Problems Name Problem SNOMED Code Status Onset Date Resolution Date Notes Provider Name and Address Organization Details Recorded Time Herpes zoster 9853960 Active Not Available [facility] 3 18:21:01 Rheumatoid arthritis 81688501 Active Not Available [facility] 3 18:21:01 Epigastric pain 36524351 Active Not Available [facility] 3 18:21:01 Neck pain 15627716 Active 2021 Not Available [facility] 3 18:21:01 Acute bronchitis 04604890 Active 2022 DELIA Tolbert [address], [address] , [facility] [employer] 3 16:12:24 Acute upper respiratory infection 16803995 Active 2022 DELIA Tolbert [address], [address] , [email or web address] 3 13:46:18 Problem Notes None recorded. Procedures Surgical History Date Name Laterality Status Provider Name and Address Organization Details Recorded Time Hysterectomy completed Not Available [facility] 08/22/2022 18:20:15 Imaging Results Imaging Date Name Status LastModified by Organization Details LastModified Time 12/13/2020 US, transvaginal completed [id number] , [place], [address], 08/22/2022 18:22:17 02/05/2022 MAMMO, screening, digital, bilateral completed [id number] [facility] [address], [place], [address], 08/22/2022 18:22:17 Procedure Notes None recorded. Medical [...] % 99 % 87 /min 98 [degF] 20985.7 8 g 110 mm[Hg] 60 mm[Hg] Not Available [facility] 3 18:20:44 Date Recorded Body height Oxygen saturation Oxygen saturation in Arterial blood by Pulse oximetry Heart rate Respiratory rate Body temperature Systolic blood pressure Diastolic blood pressure Provider Name and Address Organization Details Last Updated DateTime 2 177.8 cm 98 % 98 % 78 /min 16 /min 97.2 [degF] 120 mm[Hg] 80 mm[Hg] Not Available [facility] 3 18:20:44 Date Recorded Body height Body weight Body temperature Heart rate Oxygen saturation Oxygen saturation in Arterial blood by Pulse oximetry Systolic blood pressure Diastolic blood pressure Provider Name and Address Organization Details Last Updated DateTime 3 177.8 cm 19315.5 2 g 97.8 [degF] 77 /min 98 % 98 % 116 mm[Hg] 74 mm[Hg] Brooklynn Sullivan, JYOTHI [facility] [employer] 3 15:05:40 Date Recorded Body mass index (BMI) Provider Name and Address Organization Details Last Updated DateTime 11/20/2022 24.1 kg/m2 DELIA Tolbert [address] [facility] [address], [place], [address], [facility] [employer] 11/20/2022 15:08:20 Social History Question Answer Notes LastModified by Organizat ion Details LastModified Time Tobacco Smoking Status Never Smoker Not Available [facility] 08/22/2022 18:20:10 What Is Your Level Of Alcohol Consumption? Occasional [id number] Information not available 08/22/2022 What Is Your Level Of Caffeine Consumption? Moderate [id number] Information not available 08/22/2022 How Much Tobacco Do You Chew? None [id number] Information not available 08/22/2022 In The 14 Days Before Symptom Onset, Have You Had Close Contact With A Laboratory-confir med COVID-19 While That Case Was Ill? No [id number] Information not available 08/22/2022 In The 14 Days Before Symptom Onset, Have You Had Close Contact With A Person Who Is Under Investigation For COVID-19 While That Person Was Ill? No [id number] Information not available 08/22/2022 Are You Currently Employed? Yes [email or web address] Information not available 11/16/2022 What Type Of Diet Are You Following? REGULAR [id number].805149 2249 Information not available 08/22/2022 Which Illicit Or Recreational Drugs Have You Used? None [id number].[id number] Information not available 08/22/2022 Do You Or Have You Ever Used E-cigarettes Or Vape? 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 No MIGRATION.123055 9555 Information not available 08/22/2022 Do You Use Insect Repellent Routinely? No MIGRATION.071035 2850 Information not available 08/22/2022 What Is Your Relationship Status? MIGRATION.315761 7192 Information not available 08/22/2022 Do You Have Smoke And Carbon Monoxide Detectors In Your Home? Yes MIGRATION.217296 0972 Information not available 08/22/2022 Do You Or Have You Ever Used Smokeless Tobacco? Never Used Smokeless Tobacco MIGRATION.681133 7543 Information not available 08/22/2022 How Much Tobacco Do You Smoke? No MIGRATION.894889 5836 Information not available 08/22/2022 Do You Use Any Illicit Or Recreational Drugs? No MIGRATION.743405 7368 Information not available 08/22/2022 Do You Use Sunscreen Routinely? Yes MIGRATION.[id number] 8425 Information not available 08/22/2022 Have You Recently Traveled Abroad? No MIGRATION.793299 0063 Information not available 08/22/2022 Do You Have Any Dietary Restrictions? No MIGRATION.929917 0349 Information not available 08/22/2022 Do You Or Have You Ever Used Any Other Forms Of Tobacco Or Nicotine? No MIGRATION.646002 2780 Information not available 08/22/2022 Sex: Unknown Functional Status Question Answer Note LastModified by Organizat ion Details LastModified Time What is your exercise level? Moderate [id number] Information not available 08/22/2022 Mental Status None recorded. Family History Relationship Description Onset Age of this Age Resolved Age Notes LastModified by Organization Details LastModified Time Father General health good [id number] Not available 08/22/2022 18:20:16 Medical History Condition [...] Time TST-PPD intradermal 1 completed Not Available [facility] 08/22/2022 18:22:13 influenza, unspecified formulation 5 completed Not Available [facility] 08/22/2022 18:22:13 Past Encounters Encounter ID Performer Location Encounter Start Date Encounter Closed Date Diagnosis/Indication Diagnosis SNOMED-CT Code Diagnosis ICD10 Code Diagnosis Note [id number] [facility] [place] [address] [facility], [address] [place] [address] 12/07/2020 00:00:00 12/21/2020 17:53:03 [id number] [facility] [place] [address], [address] [place] [address] 04/09/2022 00:00:00 04/21/2022 22:09:39 [id number] DELIA Tolbert [facility] [place] [address], [address] [place] [address] 11/20/2022 14:56:56 11/20/2022 15:41:29 Adult health examination 530137095 Z00.00 well exam completed. routine labs ordered that Rheum does not check Cholesterol screening 27 7439150 Z13.220 Diabetes m ellitus screening 820226654 Z13.1 Thyroid di sorder screening 972462989 Z13.29 Long-term drug therapy 654819673 Z79.899 Rheumatoid arthritis 698 [address]0320 M06.9 stable on medication from specialist . 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 Currently perimenopausal, hot flashes, using estradiol [...] using omeprazole at this time. Not Available [facility] 12/21/2020 17:53:03 04/09/2022 text/html NeckReported bypatient.Location[facility] Quality:aching; numbness left anterior shoulder, stopped at [...] could radiate to her neck. Not Available [facility] 04/21/2022 22:09:39 11/20/2022 text/html Generic HPI TemplateReported bypatient.Notes:pt does have Rheumatoid arthritis and sees Rheum for this management. on medication.she has been losing weight on mounjaro therapy as well. nearly 40 pounds weight loss since feb 2022 here for wellnessno complaints today DELIA Tolbert [address] [facility] [address], [place], [address], [facility] 11/20/2022 17:52:01 OBGyn Episode No OBEpisode recorded.
[2024-09-19 10:46] VITALS: BP 106/66; PULSE 81; RESP 15; TEMP 36.5; O2SAT 100
--- NOTE | 2024-09-19 12:14 | PC.NURSE ---
Bedside not need d/t pt. having a hysterectomy.
--- NOTE | 2024-09-19 12:24 | ED_ITS ---
HPI - Abdominal Pain General Chief Complaint: Abdominal Pain Stated Complaint: abd pain Time Seen by Provider: 09/19/24 12:02 History of Present Illness HPI narrative: 54-year-old female with a past medical history including well-controlled rheumatoid arthritis for over 30 years, remote history of pancreatitis, previous hysterectomy. She presents to the emergency department for evaluation of lower abdominal cramping associated with diarrhea and spots of blood and blood clots in her stool. She states she was seen here several days ago and feeling improved from a pain perspective previously. At that visit 3 days ago she had nausea vomiting diarrhea and was diagnosed with potential norovirus or gastroenteritis. Sent home after feeling improved. She states she did do better after the next 2 days and then had a recurrence of lower abdominal cramping and now having some blood in her stool. Called her primary doctor who referred her to the emergency department for evaluation of potential colitis. No dietary changes, no new medications. She has a history of hemorrhoids but no concerning findings on previous colonoscopy according to the patient. Denies any fever, chills, back pain. No upper abdominal pain, chest pain, shortness a breath. Endorses some mild abdominal cramping in the lower pelvic segments that feels like contractions. No urinary complaints. No present nausea vomiting. Related Data Home Medications ?Medication ?Instructions ?Recorded ?Confirmed ?Last Taken ?Type diclofenac sodium 75 mg 150 mg PO DAILY 04/04/21 10/18/23 04/11/21 History tablet,delayed release escitalopram oxalate 10 mg tablet 10 mg PO DAILY 04/04/21 10/18/23 04/11/21 History etanercept 50 mg/mL (1 mL) 50 mg subcut WEEKLY 04/04/21 10/18/23 Unknown History subcutaneous syringe (Enbrel) hydroxychloroquine 200 mg tablet 200 mg PO DAILY 04/04/21 10/18/23 04/11/21 History sulfasalazine 500 mg tablet 1,000 mg PO BID 04/04/21 10/18/23 04/11/21 History ysjjnepifs-loueuzyncflsy-soxxmzjn 1 cap PO Q4-6H PRN severe headache 10/18/23 10/18/23 Unknown History 50 mg-300 mg-40 mg capsule (Fioricet) estradiol 1 mg tablet 0.5 mg PO DAILY 10/18/23 10/18/23 Unknown History Allergies Allergy/AdvReac Type Severity Reaction Status Date / Time No Known Allergies Allergy Unknown Verified 09/19/24 10:46 Review of Systems 2 Review of Systems: As reviewed above in [facility] Past Medical History Medical History Rheumatoid arthritis History of ulcer disease Social History Social History Smoking status: Never smoker Alcohol intake: current Drinks per week: 1 Alcohol use details: occasional 2x month Substance use: never Substance use type: does not use Living arrangements: with family Additional living arrangements comments: lives with spouse Spiritual care concerns: No Exam 2 Narrative: GENERAL: [Well-appearing, well-nourished, and in no acute distress.] HEAD: [Normocephalic, atraumatic.] EYES: [PERRLA and EOMI.] ENT: Nares clear, no rhinorrhea or epistaxis. Mucous membranes moist. NECK: Supple. CHEST: [Clear to auscultation. No respiratory distress.] HEART: [Regular rate and rhythm]. No murmur heard. [Normal peripheral pulses.] ABDOMEN: [Soft, nondistended], [nontender], [No rigidity or guarding] RECTAL: Small external hemorrhoid appreciated without any thrombosis, tenderness or recent foci bleeding. No tenderness or anal fissures, digital rectal examination deferred EXTREMITIES: Normal range of motion. [No edema.] SKIN: Warm, dry, no rash. NEURO: [No focal deficits]. Alert and oriented [x3.] PSYCH: [Normal mood and affect.] Course Vital Signs Vital signs: Vital Signs Temperature 36.5 C 09/19/24 10:46 Pulse Rate 81 09/19/24 10:46 Respiratory Rate 15 09/19/24 10:46 Blood Pressure 106/66 09/19/24 10:46 Pulse Oximetry 100 09/19/24 10:46 Temperature 36.5 C 09/19/24 10:46 Pulse Rate 81 09/19/24 10:46 Respiratory Rate 15 09/19/24 10:46 Blood Pressure 106/66 09/19/24 10:46 Pulse Oximetry 100 09/19/24 10:46 MDM - Abdominal Pain MDM Narrative Medical decision making narrative: 54-year-old female with history of rheumatoid arthritis and remote pancreatitis. She presents to the emergency depart with lower abdominal cramping feels like contractions, diarrhea and some blood in her stool. Referred to the ER by her primary care provider for evaluation of potential colitis. She was discharged several days ago from the ER after a brief workup showing no significant abnormalities and she was improved with pain control medications. Discharged home with diagnosis of gastroenteritis. She has a soft nontender nondistended abdomen. Overall very well-appearing not any distress. Normal vital signs with a tachycardia, fever, hypoxia blood pressure concerns. She has an external hemorrhoid but likely not the source for bleeding is not have any signs of symptoms of thrombosis or recent foci bleeding. No tenderness. No anal anomalies otherwise. Suspicion presently is for gastroenteritis, likely infectious or inflammatory colitis, low suspicion ischemic process. Laboratory studies were obtained including CBC, CMP, lactic acid, lipase. Urinalysis and CT scan with contrast was obtained. She was provided Bentyl and fluid bolus. Patient's laboratory studies are reassuring, white count is down trending to 10.1, no anemia. Normal platelet count. Electrolyte panel unremarkable. Normal renal function, normal hepatic function, negative lactic acid, normal glucose. Negative lipase. Urinalysis without signs of infection. CT scan shows colitis in the transverse and descending colon consistent with her history and clinical exam. I discussed with the patient at bedside that Colace is common post gastroenteritis and infection. Given that she still has a small white count and symptoms that recurred and have evolved to have bloody stool will treat this with antibiotics for short course. She was given 5 days of ciprofloxacin and stable for discharge. She is given strict return precautions, instructions to maintain good oral hydration and she has any worsening pain, fevers, night sweats, weight loss, inability to tolerate oral intake or profound dehydration to return to the emergency department otherwise she can follow-up with her doctor. Medical Records Attestation: I reviewed the patient's medical records. Lab Data Attestation: I reviewed the patient's lab results. 09/19/24 12:18 09/19/24 12:18 Labs: Lab Results 09/19/24 09/19/24 Range/Units 12:18 12:33 WBC 10.1 H (4.5-10.0) K/mm3 RBC 3.71 L (4.2-5.4) M/mm3 Hgb 12.0 (12.0-15.0) g/dL Hct 35.7 L (37.0-47.0) % MCV 96.2 (80-100) fl MCH 32.3 (26-34) pg MCHC 33.6 (32-36) g/dl RDW 12.2 (11.5-14.5) % Plt Count 233 (150-375) k/mm3 MPV 12.7 H (7.4-10.4) fl Immature Gran % (Auto) 0.3 (0-0.5) % Neut % (Auto) 75.5 H (45.5-73.1) % Lymph % (Auto) 16.4 L (18.3-44.2) % Donley % (Auto) 6.5 (2.6-8.5) % Eos % (Auto) 0.9 (0-4.4) % Baso % (Auto) 0.4 (0.2-1.2) % Lymph # (Auto) 1.66 (0.9-3.2) K/mm3 Donley # (Auto) 0.7 H (0.1-0.6) K/mm3 Eos # (Auto) 0.1 (0-0.3) K/mm3 Baso # (Auto) 0.0 (0.0-0.1) K/mm3 Abs Immat Gran (auto) 0.03 (0.00-0.031) K/mm3 Absolute Neuts (auto) 7.7 H (1.3-6.7) K/mm3 Absolute Nucleated RBC 0.000 (0.0-0.012) K/mm3 Nucleated RBC % 0.0 (0.0-0.2) % Sodium 141 (137-145) mmol/L Potassium 3.6 (3.4-5.0) mmol/L Chloride 102 (98-107) mmol/L Carbon Dioxide 30 (22-30) mmol/L Anion Gap 9 (4-12) mmol/L BUN 7 D (7-17) mg/dL Creatinine 0.73 (0.7-1.0) mg/dL Estim Creat Clear Calc 83 ml/min Estimated GFR > 60 (59 - ) Glucose 90 (65-110) mg/dL Lactic Acid 0.8 (0.7-2.0) mmol/L Calcium 9.2 (8.4-10.2) mg/dL Total Bilirubin 0.3 (0.2-1.3) mg/dL AST 37 H (14-36) U/L ALT 32 (6-35) U/L Alkaline Phosphatase 46 (38-126) U/L Total Protein 7.0 (6.3-8.2) g/dL Albumin 4.2 (3.5-5.1) g/dL Lipase 167 (23-300) U/L Urine Color Yellow (Yellow) Urine Appearance Clear (Clear) Urine pH 7.5 (5.0-9.0) Ur Specific [place] 1.008 (1.001-1.035) Urine Protein Negative (Negative) mg/dL Urine Glucose (UA) Negative (Negative) mg/dL Urine Ketones Negative (Negative) mg/dL Ur Blood (Man) Negative (Negative) Urine Nitrate Negative (Negative) Urine Bilirubin Negative (Negative) Urine Urobilinogen 0.2 (<2.0) mg/dL Leukocyte Esterase Rfl Negative (Negative) DINO/UL Imaging Data Attestation: I personally reviewed and interpreted this imaging study as follows: My impression: Impressions Abdomen/Pelvis CT 09/19/24 13:30 IMPRESSION: 1. Colitis involving the transverse and descending colon. Radiologist's impression: ITS Impressions Abdomen/Pelvis CT 09/19/24 13:30 IMPRESSION: 1. Colitis involving the transverse and descending colon. Discharge Plan Discharge Clinical Impression: Colitis Patient Disposition: Home, Self-Care Condition: Stable Instructions: Antibiotic Form, Colitis (ED) Additional Instructions: You have colitis of your transverse and descending colon which is common after recent gastroenteritis and viral type illness. Given that you still have symptoms and some bloody diarrhea we will treat this with antibiotics. Your laboratory studies are otherwise reassuring. If he exhibits any dehydration, worsening pain, fevers, chills, night sweats, weight loss or any other concerns please return to the ER otherwise follow-up with regular doctor. Patient Language: Azeri Prescriptions: New loperamide [Anti-Diarrheal (loperamide)] 2 mg capsule 2 mg PO Q6H PRN (Reason: loose stool) Qty: 14 0RF ciprofloxacin HCl [Cipro] 500 mg tablet 500 mg PO Q12H Qty: 10 0RF dicyclomine 20 mg tablet 20 mg PO TID PRN (Reason: abdominal pain) Qty: 20 0RF No Action sulfasalazine 500 mg tablet 1,000 mg PO BID Rx Instructions: take 2 500mg tablets twice daily diclofenac sodium 75 mg tablet,delayed release (DR/EC) 150 mg PO DAILY Rx Instructions: 2 75mg tablets daily hydroxychloroquine 200 mg tablet 200 mg PO DAILY escitalopram oxalate 10 mg tablet 10 mg PO DAILY Enbrel 50 mg/mL (1 mL) syringe 50 mg SUBCUT WEEKLY estradiol 1 mg tablet 0.5 mg PO DAILY vttxfqepbi-wzozaqtndzgsy-oony [Fioricet] 50-300-40 mg capsule 1 cap PO Q4-6H PRN (Reason: severe headache) ondansetron 4 mg tablet,disintegrating 4 mg PO Q8H Qty: 14 0RF famotidine 20 mg tablet 20 mg PO DAILY Qty: 14 0RF omeprazole 40 mg capsule,delayed release(DR/EC) See Rx Instructions .ROUTE .COMPLEX Qty: 30 6RF Dose Instruction: TAKE 1 CAPSULE BY MOUTH DAILY Rx Instructions: TAKE 1 CAPSULE BY MOUTH DAILY Follow-up/Referrals: Marcia,DELIO Kwan [Primary Care Provider] - Time of Disposition: 14:02
--- OUTSIDE RECORDS SUMMARY | 2024-09-19 12:24 | XMS_ITS | Clinical Summary ---
Author Organization [facility] [address] Address [address] [place] [id number] Care Team Providers Care Die Maker Stamping Name Role Phone AbelinobandarAniya Primary Care Pr [...] Description 09/16/2024 7:15 PM CDT Office Visit [facility] at [address] [address] Diane Courtney NP Nausea and vomiting, unspecified vomiting type (Primary Dx); Dizziness; Lightheaded 09/16/2024 Telephone [facility] [address] [facility] Floor 1 [place] [address] Navi Christopher MD 09/02/2024 Telephone [facility] [address] [place] [address] 6th [place] [address] [place] [address] Navi Anderson MD Spinal Surgery 08/27/2024 9:10 AM CLAIMS SPECIALIST Office Visit [facility] [address] [place] [address] Medical Office Building 4 [address] [place] [address] Navi Anderson MD Lumbar radiculopathy (Primary Dx) 08/27/2024 8:30 AM CLAIMS SPECIALIST - 08/27/2024 11:59 PM CLAIMS SPECIALIST Hospital Encounter [facility] [address] [place] [address] [address] [place] [address] Lumbar radiculopathy Discharge Disposition: Discharge to home or self care 08/13/2024 11:30 AM CLAIMS SPECIALIST Procedure visit [facility] [address] [place] [address] 6th [place] [address] [place] [address] Frederick Avery MD Trochanteric bursitis of left hip 08/13/2024 11:20 AM CLAIMS SPECIALIST Ancillary Procedure [facility] [address] [place] [address] 6th [place] [address] [place] [address] 08/11/2024 Orders Only [facility] [address] [facility] [address] 1st Floor [address] [place] [address] Frederick Avery MD Trochanteric bursitis of left hip (Primary Dx) 08/11/2024 Telephone [facility] [address] [facility] 1st Floor [address] [place] [address] Frederick Avery MD 07/27/2024 1:52 PM CLAIMS SPECIALIST - 07/27/2024 11:59 PM CLAIMS SPECIALIST Hospital Encounter [facility] [address] [place] [address] [address] [place] [phone] Bryanna Day MD Lumbar radiculopathy Discharge Disposition: Discharge to home or self care 07/27/2024 1:10 PM CLAIMS SPECIALIST Clinical Support [facility] [address] [place] [address] Medical Office Building 2 [address] [place] [phone] Postmenopausal (Primary Dx); Screening for osteoporosis 07/22/2024 Telephone Radiology - [address] [facility] [address] [place] [address] Luisa Acosta, 07/16/2024 8:50 AM CLAIMS SPECIALIST Office Visit [facility] [address] [place] [address] Medical Office Building 4 [address] [place] [phone] Navi Anderson MD Lumbar spine pain (Primary Dx); Lumbar radiculopathy; Trochanteric bursitis of left hip; Screening for osteoporosis 07/16/2024 8:30 AM CLAIMS SPECIALIST - 07/16/2024 11:59 PM CLAIMS SPECIALIST Hospital Encounter [facility] [address] [place] [address] [address] [place] [phone] Lumbar spine pain Discharge Disposition: Discharge to home or self care 07/08/2024 12:36 PM CLAIMS SPECIALIST - 07/08/2024 11:59 PM CLAIMS SPECIALIST Hospital Encounter [facility] [address] [place] [address] Discharge Disposition: Discharge to home or self [...] on file Legal Sex Female 1:45 AM CLAIMS SPECIALIST Gender Identity Not on file Sexual Orientation [...] 75.3 kg (166 lb) 07/16/2024 9:05 AM CLAIMS SPECIALIST Height 175.3 cm (5' 9 ) 07/16/2024 9:05 AM CLAIMS SPECIALIST Body Mass Index 24.51 07/16/2024 9:05 AM CLAIMS SPECIALIST Plan of Treatment Upcoming Encounters Date Type Department Care Team (Latest Contact Info) Description 11/03/2024 1:35 PM CDT Hospital Encounter [facility] Operating Room 1 [place] [address] Navi Anderson MD [address] [facility] [address] 11/03/2024 1:35 PM CDT - 11/03/2024 7:35 PM CDT Surgery [facility] Operating Room 1 [place] [address] Navi Anderson MD [address] [facility] 6A/6B/12A [place] [address] Combo Monica/Candi- FUSION SPINAL - ANTERIOR LUMBAR/THORACIC [...] Read Routine (OP Routine) 08/27/2024 10:15 AM CLAIMS SPECIALIST Lumbar radiculopathy ND ARTHROCENTESIS ASPIR&/INJ MAJOR JT/BURSA W/US Routine 08/13/2024 11:30 AM CLAIMS SPECIALIST Trochanteric bursitis of left hip POCUS ASP/INJ MAJOR JOINT Schedule Routine, Read Routine (OP Routine) 08/13/2024 11:17 AM CLAIMS SPECIALIST Trochanteric bursitis of left hip TRANSFORAMINAL EPIDURAL INJECTION LUMBAR SACRAL FIRST LEVEL BILATERAL Schedule Routine, Read Routine (OP Routine) 07/27/2024 3:07 PM CLAIMS SPECIALIST Lumbar radiculopathy DEXA AXIAL SKELETON BONE DENSITY 1 OR MORE SITES Schedule Routine, Read Routine (OP Routine) 07/27/2024 1:44 PM CLAIMS SPECIALIST Screening for osteoporosis XR SPINE LUMBAR COMPLETE 4 OR MORE VIEWS Schedule Routine, Read Routine (OP Routine) 07/16/2024 8:45 AM CLAIMS SPECIALIST Lumbar spine pain NEURO MR OUTSIDE REFERENCE Routine 07/08/2024 12:36 PM CLAIMS SPECIALIST from Last 3 Months Results * POC Influenza A/B, COVID-19 antigen (09/16/2024 7:34 PM CDT) Influenza A Ag, POC Negative Negative [facility] Influenza B Ag, POC Negative Negative [facility] [place]-19 Ag POC Presumptive Negative Presumptive Negative, Invalid [facility] Swab 09/16/2024 7:34 PM CDT Diane Courteny NP POINT OF CARE TEST ORDERABLES Final Result [facility] [address] [place] [address], [facility] * XR Scoliosis 2 or 3 Views (08/27/2024 10:15 AM CLAIMS SPECIALIST) Anatomical Region Laterality Modality Spine N/A Computed Radiogr aphy 08/27/2024 11:3 1 AM CLAIMS SPECIALIST Impressions 08/27/2024 11:55 AM CLAIMS SPECIALIST 1. No scoliotic curvature or truncal balance of the spine. 2. Multilevel degenerative disc disease, up to severe at L5-S1 Dictated by: Lj Joshi M.D. The radiology attending physician has personally reviewed this study, and had reviewed and/or edited this written report and agrees with it. Electronically signed by: Butch Jackson D.O. Narrative 08/27/2024 11:55 AM CLAIMS SPECIALIST EXAMINATION: XR SCOLIOSIS AP AND LATERAL HISTORY: [...] MD IMG XR PROCEDURES Final Result * ND ARTHROCENTESIS ASPIR&/INJ MAJOR JT/BURSA W/US (08/13/2024 11:30 AM CLAIMS SPECIALIST) Narrative Frederick Avery MD - 08/13/2024 11:30 AM CLAIMS SPECIALIST Frederick Avery MD 08/20/2024 12:29 AM Greater [...] POCUS ASP/INJ MAJOR JOINT (08/13/2024 11:17 AM CLAIMS SPECIALIST) Narrative RAD_PACS_POCUS_[facility] - 08/13/2024 11:17 AM CLAIMS SPECIALIST This procedure was performed and interpreted by the provider. Please refer to the provider's procedure/OR operative note for results. us Frederick Avery MD POCUS ORDERABLES Final R esult Performing Organization Address City/[facility]/ZIP Co de Phone Number RAD_PACS_POCUS_[facility] * IR Transforaminal Epidural Injection Lumbar Sacral First Level Bilateral (07/27/2024 3:07 PM CLAIMS SPECIALIST) Narrative RAD_PACS_[facility] - 07/27/2024 3:07 PM CLAIMS SPECIALIST The images from this study are not interpreted by Radiology. Please refer to the physician's procedure / OR operative note. us Navi Anderson MD IMG IR PROCEDURES Final Result Performing Organization Address [facility] Co de Phone Number RAD_PACS_[facility] * DEXA Axial Skeleton Bone Density Multi Site (07/27/2024 1:44 PM CLAIMS SPECIALIST) Anatomical Region Laterality Modality Body N/A Radiographic Anne ging Narrative 07/28/2024 2:27 PM CLAIMS SPECIALIST Patient Name: Maggie Ramos Date of : 1970 Date of scan: 07/27/2024 Bone mineral density was performed on a [employer] Discovery Densitometer. Based on machine cross-calibration and [...] by the International Society of Clinical Densitometry. [id number] Navi Anderson MD IMG DXA PROCEDURE S Final Result * XR Spine Lumbar 4 or More Views (07/16/2024 8:45 AM CLAIMS SPECIALIST) Anatomical Region Laterality Modality Spine N/A Computed Radiogr aphy 07/16/2024 8:51 AM CLAIMS SPECIALIST Impressions 07/16/2024 8:51 AM CLAIMS SPECIALIST 1. Unchanged multilevel degenerative disc disease most pronounced and severe at L5-S1 with lower lumbar facet osteoarthritis. Electronically signed by: Evangelista Hall M.D. Narrative 07/16/2024 8:51 AM CLAIMS SPECIALIST EXAMINATION: XR SPINE LUMBAR 4 OR MORE [...] Neuro MR Outside Reference (07/08/2024 12:36 PM CLAIMS SPECIALIST) Impressions [facility] - 07/08/2024 12:36 PM CLAIMS SPECIALIST These images are for Reference purposes only and have not been reviewed by [facility]. There will be no report generated by a [facility] Radiologist. Narrative RAD_PACS_[facility] - 07/08/2024 12:36 PM CLAIMS SPECIALIST EXAMINATION: Images For Reference Purposes Only us Navi Anderson MD IMG MRI PROCEDURE S Final Result RAD_PACS_[facility] from Last 3 Months Insurance [facility] H[facility]/PPO Address: [address] [place] [id number] [place] [address] [facility] H[facility]/PPO Address: [address] [place] [id number] Care Teams Die Maker Stamping Relationship Specialty Start Date End Date Aniya Kennedy PA PCP - General Physician Engineering Lecturer 07/17/23
--- OUTSIDE RECORDS SUMMARY | 2024-09-19 12:24 | XMS_ITS | Referral Summary ---
Author Organization [facility] [address] Address [address] [place] [address] Care Team Providers Care Senior Risk Analyst Name Role Phone CarlyleVasile molinayandy LIN Primary Care Pr ovider Encounters Date Type Department Care Team Description 09/16/2024 7:15 PM CDT Office Visit [facility] at [address] [address] Diane Courtney NP Nausea and vomiting, unspecified vomiting type (Primary Dx); Dizziness; Lightheaded 09/16/2024 Telephone [facility] Surgery [address] [facility] Floor 1 [place] [address] Navi Christopher MD 09/02/2024 Telephone [facility] Orthopaedic Surgery [address] [facility] 6th [place] [address] [place] [address] Navi Anderson MD Spinal Surgery 08/27/2024 8:30 AM FRONT MAN - 08/27/2024 11:59 PM FRONT MAN Hospital Encounter [id number] [address] [place] [address] [address] [place] [address] Lumbar radiculopathy Discharge Disposition: Discharge to home or self care 08/27/2024 9:10 AM FRONT MAN Office Visit [facility] Orthopaedic Surgery [address] [place] [address] Medical Office Building 4 [address] [place] [phone] Navi Anderson MD Lumbar radiculopathy (Primary Dx) 08/13/2024 11:20 AM FRONT MAN Ancillary Procedure [facility] Orthopaedic Surgery [address] [facility] 6th [place] [address] [place] [address] 08/13/2024 11:30 AM FRONT MAN Procedure visit [facility] Orthopaedic Surgery [address] [facility] 6th [place] [address] [place] [address] Frederick Avery MD Trochanteric bursitis of left hip 08/11/2024 Orders Only [facility] Orthopaedic Surgery [address] [facility] 1st Floor [address] [place] [address] Frederick Avery MD Trochanteric bursitis of left hip (Primary Dx) 08/11/2024 Telephone [facility] Orthopaedic Surgery [address] [facility] 1st Floor [address] [place] [address] Frederick Avery MD 07/27/2024 1:10 PM FRONT MAN Clinical Support [facility] Bone Health [address] [place] [address] Medical Office Building 2 [address] [place] [address] Postmenopausal (Primary Dx); Screening for osteoporosis 07/27/2024 1:52 PM FRONT MAN - 07/27/2024 11:59 PM FRONT MAN Hospital Encounter [id number] [address] [place] [address] [address] [place] [id number] Bryanna [place] MD Lumbar radiculopathy Discharge Disposition: Discharge to home or self care 07/22/2024 Telephone Radiology - [address] [facility] [address] [place] [address] Luisa Acosta, 07/16/2024 8:30 AM FRONT MAN - 07/16/2024 11:59 PM FRONT MAN Hospital Encounter [id number] [address] [place] [address] [address] [place] [phone] Lumbar spine pain Discharge Disposition: Discharge to home or self care 07/16/2024 8:50 AM FRONT MAN Office Visit [facility] Orthopaedic Surgery [address] [place] [address] Medical Office Building 4 [address] [place] [address] Navi Anderson MD Lumbar spine pain (Primary Dx); Lumbar radiculopathy; Trochanteric bursitis of left hip; Screening for osteoporosis 07/08/2024 12:36 PM FRONT MAN - 07/08/2024 11:59 PM FRONT MAN Hospital Encounter [facility] [address] [place] [address] Discharge Disposition: Discharge to home or self [...] on file Legal Sex Female 1:45 AM FRONT MAN Gender Identity Not on file Sexual Orientation [...] 75.3 kg (166 lb) 07/16/2024 9:05 AM FRONT MAN Height 175.3 cm (5' 9 ) 07/16/2024 9:05 AM FRONT MAN Body Mass Index 24.51 07/16/2024 9:05 AM FRONT MAN Plan of Treatment Upcoming Encounters Date Type Department Care Team (Latest Contact Info) Description 11/03/2024 1:35 PM CDT Hospital Encounter [facility] Operating Room 1 [place] [address] Navi Anderson MD [address] [place] [address] 11/03/2024 1:35 PM CDT - 11/03/2024 7:35 PM CDT Surgery [facility] Operating Room 1 [place] [address] Navi Anderson MD [address] [place] [place] [address] Lela Anderson/Candi- FUSION SPINAL - ANTERIOR LUMBAR/THORACIC [...] Read Routine (OP Routine) 08/27/2024 10:15 AM FRONT MAN Lumbar radiculopathy VA ARTHROCENTESIS ASPIR&/INJ MAJOR JT/BURSA W/US Routine 08/13/2024 11:30 AM FRONT MAN Trochanteric bursitis of left hip POCUS ASP/INJ MAJOR JOINT Schedule Routine, Read Routine (OP Routine) 08/13/2024 11:17 AM FRONT MAN Trochanteric bursitis of left hip TRANSFORAMINAL EPIDURAL INJECTION LUMBAR SACRAL FIRST LEVEL BILATERAL Schedule Routine, Read Routine (OP Routine) 07/27/2024 3:07 PM FRONT MAN Lumbar radiculopathy DEXA AXIAL SKELETON BONE DENSITY 1 OR MORE SITES Schedule Routine, Read Routine (OP Routine) 07/27/2024 1:44 PM FRONT MAN Screening for osteoporosis XR SPINE LUMBAR COMPLETE 4 OR MORE VIEWS Schedule Routine, Read Routine (OP Routine) 07/16/2024 8:45 AM FRONT MAN Lumbar spine pain NEURO MR OUTSIDE REFERENCE Routine 07/08/2024 12:36 PM FRONT MAN from Last 3 Months Results * POC Influenza A/B, COVID-19 antigen (09/16/2024 7:34 PM CDT) Influenza A Ag, POC Negative Negative [facility] Influenza B Ag, POC Negative Negative [facility] COVID-19 Ag POC Presumptive Negative Presumptive Negative, Invalid [facility] Swab 09/16/2024 7:34 PM CDT us Diane Courtney NP POINT OF CARE TEST ORDERABLES Final Result Performing Organization Address City/State/[facility] Co de Phone Number [facility] [address] [place] [address] * XR Scoliosis 2 or 3 Views (08/27/2024 10:15 AM FRONT MAN) Anatomical Region Laterality Modality Spine N/A Computed Radiogr aphy 08/27/2024 11:3 1 AM FRONT MAN Impressions 08/27/2024 11:55 AM FRONT MAN 1. No scoliotic curvature or truncal balance of the spine. 2. Multilevel degenerative disc disease, up to severe at L5-S1 Dictated by: Lj Joshi M.D. The radiology attending physician has personally reviewed this study, and had reviewed and/or edited this written report and agrees with it. Electronically signed by: Butch Jackson D.O. Narrative 08/27/2024 11:55 AM FRONT MAN EXAMINATION: XR SCOLIOSIS AP AND LATERAL HISTORY: [...] MD IMG XR PROCEDURES Final Result * VA ARTHROCENTESIS ASPIR&/INJ MAJOR JT/BURSA W/US (08/13/2024 11:30 AM FRONT MAN) Narrative Frederick Avery MD - 08/13/2024 11:30 AM FRONT MAN Frederick Avery MD 08/20/2024 12:29 AM Greater [...] POCUS ASP/INJ MAJOR JOINT (08/13/2024 11:17 AM FRONT MAN) Narrative [facility] - 08/13/2024 11:17 AM FRONT MAN This procedure was performed and interpreted by the provider. Please refer to the provider's procedure/OR operative note for results. Frederick Avery MD POCUS ORDERABLES Final R esult Performing Organization Address [facility] de Phone Number [facility] * IR Transforaminal Epidural Injection Lumbar Sacral First Level Bilateral (07/27/2024 3:07 PM FRONT MAN) Narrative [facility] - 07/27/2024 3:07 PM FRONT MAN The images from this study are not interpreted by Radiology. Please refer to the physician's procedure / OR operative note. us Navi Anderson MD IMG IR PROCEDURES Final Result Performing Organization Address [facility] Co de Phone Number [facility] * DEXA Axial Skeleton Bone Density Multi Site (07/27/2024 1:44 PM FRONT MAN) Anatomical Region Laterality Modality Body N/A Radiographic Anne ging Narrative 07/28/2024 2:27 PM FRONT MAN Patient Name: Maggie Truong Date of : 1970 Date of scan: 07/27/2024 Bone mineral density was performed on a [employer] Discovery Densitometer. Based on machine cross-calibration and [...] by the International Society of Clinical Densitometry. [id number] Navi Anderson MD IMG DXA PROCEDURE S Final Result * XR Spine Lumbar 4 or More Views (07/16/2024 8:45 AM FRONT MAN) Anatomical Region Laterality Modality Spine N/A Computed Radiogr aphy 07/16/2024 8:51 AM FRONT MAN Impressions 07/16/2024 8:51 AM FRONT MAN 1. Unchanged multilevel degenerative disc disease most pronounced and severe at L5-S1 with lower lumbar facet osteoarthritis. Electronically signed by: Evangelista Hall M.D. Narrative 07/16/2024 8:51 AM FRONT MAN EXAMINATION: XR SPINE LUMBAR 4 OR MORE [...] Neuro MR Outside Reference (07/08/2024 12:36 PM FRONT MAN) Impressions [facility] - 07/08/2024 12:36 PM FRONT MAN These images are for Reference purposes only and have not been reviewed by [facility]iology. There will be no report generated by a [facility] Radiologist. Narrative [facility] - 07/08/2024 12:36 PM FRONT MAN EXAMINATION: Images For Reference Purposes Only Navi Anderson MD IMG MRI PROCEDURE S Final Result [facility] from Last 3 Months Insurance [facility] [employer] Care Teams Senior Risk Analyst Relationship Specialty Start Date End Date Aniya Kennedy PA PCP - General Physician Senior Training Specialist 07/17/23
--- OUTSIDE RECORDS SUMMARY | 2024-09-19 12:25 | XMS_ITS | Clinical Summary ---
Author Organization [facility] Address [address] [place] [address] Care Team Providers Care Technical Training Manager Name Role Phone Aniya Guerra Primary Care Pr ovider Source Comments [facility],non-owned Affiliates and Associated Physician Practices is amultiple site organization consisting of ambulatory clinics and hospital sitesin [place], [place], [place] and [place]. This disclosure is being madepursuant to the Care Everywhere program and may not contain all information available regarding this patient. Last updated 18.[facility] Allergies No known active allergies Medications * [...] 09/04/2024 Refill [facility] - Rheumatology [address] [place] [phone] Panda Allen MD Refill Request 08/05/2024 Refill [facility] [address] [place] [phone] Panda Allen MD Refill Request 07/14/2024 2:33 PM BUS REPAIR SUPERVISOR - 07/14/2024 11:59 PM BUS REPAIR SUPERVISOR Hospital Encounter [facility] DIAGNOSTIC RAD OP [address] [place] [address] Panda Allen MD Discharge Disposition: Home or Self Care 07/14/2024 1:45 PM BUS REPAIR SUPERVISOR - 07/14/2024 2:32 PM [facility] Hospital Encounter [facility] LAB OP DRAW STATION [address] [place] [address] Discharge Disposition: Home or Self Care 07/14/2024 1:00 PM BUS REPAIR SUPERVISOR Office Visit [facility] [address] [place] [phone] Panda Allen MD Encounter for therapeutic drug [...] Sex Assigned at Female 05/21/2022 6:35 PM BUS REPAIR SUPERVISOR Gender Identity Female 05/21/2022 6:35 PM BUS REPAIR SUPERVISOR Sexual Orientation Straight 05/21/2022 6: 35 PM BUS REPAIR SUPERVISOR Last Filed Vital Signs Vital Sign Reading Time Taken Comments Blood Pressure 109/76 07/14/2024 1:04 PM BUS REPAIR SUPERVISOR Pulse 69 07/14/2024 1:04 PM BUS REPAIR SUPERVISOR Temperature 36.7 C (98 F) 07/14/2024 1:04 PM BUS REPAIR SUPERVISOR Respiratory Rate 16 11/01/2018 12:2 9 PM CDT Oxygen Saturation 98% 07/14/2024 1:04 PM BUS REPAIR SUPERVISOR Inhaled Oxygen Concentration - - Weight 74.8 kg (164 lb 12.8 oz) 07/14/2024 1:04 PM BUS REPAIR SUPERVISOR Height 177.8 cm (5' 10 ) 07/14/2024 1:04 PM BUS REPAIR SUPERVISOR Body Mass Index 23.65 07/14/2024 1:04 PM BUS REPAIR SUPERVISOR Plan of Treatment Upcoming Encounters Date Type Department Care Team (Late st Contact Info) Description 01/12/2025 1:20 PM CDT Office Visit [facility] - Rheumatology [address] [place] [address], [place] [address] Panda Allen MD [address] [place] [address] [place] [phone] Health Maintenance Due Date Last Done Comments [...] XR CHEST 2VW Routine 07/14/2024 2:37 PM BUS REPAIR SUPERVISOR Encounter for therapeutic drug monitoring URINALYSIS W/MICROSCOPIC REFLEX TO CULTURE Routine 07/08/2024 4:04 PM BUS REPAIR SUPERVISOR Rheumatoid arthritis involving both hands with positive rheumatoid factor Encounter for therapeutic drug monitoring ERYTHROCYTE SEDIMENTATION RATE Routine 07/08/2024 4:04 PM BUS REPAIR SUPERVISOR Rheumatoid arthritis involving both hands with positive rheumatoid factor Encounter for therapeutic drug monitoring C-REACTIVE PROTEIN Routine 07/08/2024 4: 04 PM BUS REPAIR SUPERVISOR Rheumatoid arthritis involving both hands with positive rheumatoid factor Encounter for therapeutic drug monitoring COMPREHENSIVE METABOLIC PANEL Routine 07/08/2024 4:04 PM BUS REPAIR SUPERVISOR Rheumatoid arthritis involving both hands with positive rheumatoid factor Encounter for therapeutic drug monitoring CBC W AUTO DIFFERENTIAL Routine 07/08/2024 4:04 PM BUS REPAIR SUPERVISOR Rheumatoid arthritis involving both hands with positive rheumatoid factor Encounter for therapeutic drug monitoring HEPATITIS C ANTIBODY Routine 09/09/2023 2:18 PM CDT Rheumatoid arthritis involving both hands with positive rheumatoid factor Encounter for therapeutic drug monitoring from Last 3 Months or Most Recently Relevant to Health Maintenance Results * XR Chest 2Vw (07/14/2024 2:37 PM BUS REPAIR SUPERVISOR) Anatomical Region Laterality Modality Chest Digital Radiogra phy 07/14/2024 2:54 PM BUS REPAIR SUPERVISOR Narrative 07/15/2024 1:35 PM BUS REPAIR SUPERVISOR PROCEDURE: XR CHEST 2VW, DATE/TIME OF EXAM: 07/14/2024 2:37 PM, LOCATION [facility] INDICATION: Z51.81: Encounter for therapeutic drug monitoring ADDITIONAL CLINICAL INFORMATION: Ordering Provider Reason For Exam: Technologist Note: Additional: COMPARISON: Chest radiograph from 03/11/2023. FINDINGS/IMPRESSION: There is no focal lung consolidation, pleural effusion, or pneumothorax. The cardiomediastinal silhouette is normal. The bony thorax is intact. The report was drafted by Sabine Parikh MD (presidential support specialist) 07/14/2024 2:54 PM. IStiven MD have personally reviewed and interpreted this examination/study. > Interpreting Provider: Stiven Samaniego MD on 07/15/2024 1:35 PM Procedure Note Stiven Samaniego MD - 07/15/2024 PROCEDURE: XR CHEST 2VW, DATE/TIME OF EXAM: 07/14/2024 2:37 PM, LOCATION [facility] INDICATION: Z51.81: Encounter for therapeutic drug monitoring ADDITIONAL CLINICAL INFORMATION: Ordering Provider Reason For Exam: Technologist Note: Additional: COMPARISON: Chest radiograph from 03/11/2023. FINDINGS/IMPRESSION: There is no focal lung consolidation, pleural effusion, or pneumothorax. The cardiomediastinal silhouette is normal. The bony thorax is intact. The report was drafted by Sabine Parikh MD (presidential support specialist) 07/14/2024 2:54 PM. I, Stiven Samaniego MD have personally reviewed and interpreted this examination/study. > Interpreting Provider: Stiven Samaniego MD on 07/15/2024 1:35 PM Panda Allen MD DIAGNOSTIC IMAGING O RDERABLES * (ABNORMAL) URINALYSIS W/MICROSCOPIC REFLEX TO CULTURE (07/08/2024 4:04 PM BUS REPAIR SUPERVISOR) Specific [place] UA 1.024 1.005 - 1.030 [facility] INSURANCE [...] reflex to a Urine Culture. Performed at: [address] [id number] Relations Manager: Nate Acosta PhD, Phone: [phone] WBC UA None seen 0 - 5 [...] CATCH PROCEDURE / Unknown 07/08/2024 4:04 PM BUS REPAIR SUPERVISOR 07/08/2024 Narrative [facility] INSURANCE BILL - 07/09/2024 3:08 PM BUS REPAIR SUPERVISOR Performed at: [address] [place] [id number] Relations Manager: Nate Acosta PhD, Phone: [phone] Panda Allen MD LAB - URINALYSIS ORD ERABLES Performing Organization Address [facility] Co de Phone Number [facility] INSURANCE BILL [address] [place] [address] * C-REACTIVE PROTEIN (07/08/2024 4:04 PM BUS REPAIR SUPERVISOR) C-Reactive Protein <1 0 - 10 mg/L [facility] INSURANCE BILL Blood BLOOD SPECIMEN / Unknown 07/08/2024 4:04 PM BUS REPAIR SUPERVISOR 07/08/2024 Narrative [facility] INSURANCE BILL - 07/09/2024 1:08 PM BUS REPAIR SUPERVISOR Performed at: [address] [place] [id number] Relations Manager: Nate Acosta PhD, Phone: [phone] Panda Allen MD LAB - CHEMISTRY ORDE RABLES Performing Organization Address City/[facility] Co de Phone Number [facility] INSURANCE BILL [address] [place] [address] * ERYTHROCYTE SEDIMENTATION RATE (07/08/2024 4:04 PM BUS REPAIR SUPERVISOR) Erythrocyte Sedimentation Rate Westergren 2 0 - 40 mm/hr [facility] INSURANCE BILL Blood BLOOD SPECIMEN / Unknown 07/08/2024 4:04 PM BUS REPAIR SUPERVISOR 07/08/2024 Narrative [facility] INSURANCE BILL - 07/09/2024 7:09 AM BUS REPAIR SUPERVISOR Performed at: 01 - [facility] [address] [place], [place] [id number] Relations Manager: Nate Acosta PhD, Phone: [phone] Panda Allen MD LAB - HEMATOLOGY ORD ERABLES [facility] INSURANCE BILL [address] [place] [address] * CBC WITH DIFFERENTIAL (07/08/2024 4:04 PM BUS REPAIR SUPERVISOR) WBC 4.1 3.4 - 10.8 x10E3/uL [facility] [...] BLOOD SPECIMEN / Unknown 07/08/2024 4:04 PM BUS REPAIR SUPERVISOR 07/08/2024 Narrative [facility] INSURANCE BILL - 07/09/2024 7:09 AM BUS REPAIR SUPERVISOR Performed at: 01 - [facility] [id number] Relations Manager: Nate Acosta PhD, Phone: [phone] Panda Allen MD LAB - HEMATOLOGY ORD ERABLES [facility] INSURANCE BILL [address] [place] [address] * (ABNORMAL) COMPREHENSIVE METABOLIC PANEL (07/08/2024 4:04 PM BUS REPAIR SUPERVISOR) Glucose 83 70 - 99 mg/dL [facility] [...] BLOOD SPECIMEN / Unknown 07/08/2024 4:04 PM BUS REPAIR SUPERVISOR 07/08/2024 Narrative [facility] INSURANCE BILL - 07/09/2024 11:10 AM BUS REPAIR SUPERVISOR Performed at: 01 - [facility] [id number] Relations Manager: Nate Acosta PhD, Phone: [phone] Panda Allen MD LAB - CHEMISTRY MAE MCNEAL Performing Organization Address [facility] Co de Phone Number [facility] INSURANCE BILL [address] [place] [address] * HEPATITIS C ANTIBODY (09/09/2023 2:18 PM [...] Resulting Agency Comment Lab Testing performed at: [place] [id number] [facility] [id number] Panda Allen MD LAB - CHEMISTRY MAE MCNEAL Performing Organization Address City/[facility] Co de Phone Number [facility] INSURANCE BILL [address] [place] [address] from Last 3 Months or Most Recently Relevant to Health Maintenance Care Teams Technical Training Manager Relationship Specialty Start Date End Date Aniya Guerra PA [address] [place] [address] PCP - General Physician Manager Purchasing 01/13/24
[2024-09-19] MEDS: DICYCLOMINE HCL 10 MG CAPSULE 20 MG PO (12:26)
[2024-09-19] MEDS: LACTATED RINGERS 1,000 ML 999 ML IV CONT (12:26)
[2024-09-19 12:32] LABS: Basophils Percent Auto 0.4 % (0.2-1.2); Eosinophils Absolute Auto 0.1 K/mm3 (0-0.3); Eosinophils Percent Auto 0.9 % (0-4.4); Hematocrit 35.7 % (37.0-47.0); Immature Granulocyte Absolute 0.03 K/mm3 (0.00-0.031); Immature Granulocyte Percent A 0.3 % (0-0.5); Lymphocytes Absolute Auto 1.66 K/mm3 (0.9-3.2); Lymphocytes Percent Auto 16.4 % (18.3-44.2); Mean Corpuscular HGB Conc 33.6 g/dl (32-36); Mean Corpuscular Hemoglobin 32.3 pg (26-34); Mean Corpuscular Volume 96.2 fl (80-100); Mean Platelet Volume 12.7 fl (7.4-10.4); Monocytes Absolute Auto 0.7 K/mm3 (0.1-0.6); Monocytes Percent Auto 6.5 % (2.6-8.5); Neutrophils Absolute Auto 7.7 K/mm3 (1.3-6.7); Neutrophils Percent Auto 75.5 % (45.5-73.1); Platelet Count Result 233 k/mm3 (150-375); Red Blood Count 3.71 M/mm3 (4.2-5.4); Red Cell Distribution Width 12.2 % (11.5-14.5); White Blood Count 10.1 K/mm3 (4.5-10.0)
[2024-09-19 12:33] LABS: Add Urine Microscopic? NO; Appearance Urine Clear (Clear); Bilirubin Urine Negative (Negative); Blood Urine Negative (Negative); Color Urine Yellow (Yellow); Glucose Urine UA Negative (Negative); Ketones Urine Negative (Negative); Leukocyte Esterase Ur Negative LEU/UL (Negative); Nitrate Urine Negative (Negative); Protein Urine Negative (Negative); Specific Grav Ur 1.008 (1.001-1.035); Urobilinogen Urine 0.2 mg/dL (<2.0); pH Urine 7.5 (5.0-9.0)
[2024-09-19 12:52] LABS: Alanine Aminotransferase 32 U/L (6-35); Albumin Level 4.2 g/dL (3.5-5.1); Alkaline Phosphatase 46 U/L (38-126); Anion Gap 9 mmol/L (4-12); Aspartate Amino Transferase 37 U/L (14-36); Bilirubin,Total 0.3 mg/dL (0.2-1.3); Blood Urea Nitrogen 7 mg/dL (7-17); Calcium 9.2 mg/dL (8.4-10.2); Carbon Dioxide 30 mmol/L (22-30); Chloride 102 mmol/L (98-107); Estimated CRCL calculation 83 ml/min; Estimated Glomerular Filt Rate > 60; Glucose 90 mg/dL (65-110); Lipase 167 U/L (23-300); Potassium 3.6 mmol/L (3.4-5.0); Sodium 141 mmol/L (137-145)
[2024-09-19 12:53] LABS: Lactic Acid Reflex 0.8 mmol/L (0.7-2.0)
[2024-09-19 14:07] VITALS: BP 110/64; PULSE 75; RESP 16; TEMP 36.5; O2SAT 100
== END 2024-09-19 14:08 | disposition home or self-care (01) ==
PROVIDERS: Emergency Provider Student in an Organized Health Care Education/Training Program; PCP Physician Assistant
DX: K52.9 Noninfective gastroenteritis and colitis, unspecified (principal); M06.9 Rheumatoid arthritis, unspecified; Z90.710 Acquired absence of both cervix and uterus; Z79.899 Other long term (current) drug therapy; Z79.620 Long term (current) use of immunosuppressive biologic
CPT/HCPCS: 36415; 74177; 80053; 81003; 83605; 83690; 85025; 96360; 99284; A9270; J7120; Q9967

== ENCOUNTER 2024-12-11 10:44 | Outpatient (CLI) | payer OTHER, SELFPAY ==
--- NOTE | ~2024-12-11 | US_ITS ---
Pelvic ultrasound. Clinical History: Left ovarian cyst Technique: Realtime transabdominal and transvaginal scanning of the pelvis was performed. Color flow Doppler and Doppler spectral analysis were performed. Findings: Status post hysterectomy. The right ovary is not visualized. No significant right ovarian or adnexal mass is seen. The left ovary measures 2.7 x 2.6 x 3.1 cm. Simple left ovarian cyst occupies the bulk of the ovary, and measures 2.7 cm in diameter. There is no evidence of free fluid in the cul de sac. Impression: 2.7 cm simple left ovarian cyst. Reviewed, dictated and finalized at location . Impression: 2.7 cm simple left ovarian cyst.
== END 2024-12-11 10:45 | disposition home or self-care (01) ==
PROVIDERS: PCP Obstetrics & Gynecology; Visit Provider Physician Assistant
DX: N83.292 Other ovarian cyst, left side (principal)
CPT/HCPCS: 76830

== ENCOUNTER 2025-02-15 11:08 | Outpatient (CLI) | payer OTHER, SELFPAY ==
--- NOTE | ~2025-02-15 | XR_ITS ---
EXAMINATION: XR foot RT 2V, 02/15/2025 11:32 CDT HISTORY: rheumatoid arthritis involving both hands COMPARISON: No comparisons available. Findings: No acute fracture or malalignment. No significant degenerative changes. Soft tissues unremarkable. Impression: No acute fracture or malalignment. Reviewed, dictated and finalized at location A. Impression: No acute fracture or malalignment.
--- NOTE | ~2025-02-15 | XR_ITS ---
EXAMINATION: XR hand RT 2V DATE: 02/15/2025 11:47 INDICATION: Rheumatoid arthritis involving both hands TECHNIQUE: 2 images of the right hand were obtained. COMPARISON: None. FINDINGS: Mild soft tissue swelling about the right hand. Mild joint space narrowing in the first carpometacarpal joint. Mild joint space seen in the first metacarpophalangeal joint with adjacent soft tissue swelling. No fracture. No dislocation. Bone mineralization is within normal limits. IMPRESSION: 1. No fracture 2. Mild joint space narrowing in the first carpometacarpal joint and in the first metacarpophalangeal joint Reviewed, dictated and finalized at location Q. IMPRESSION: 1. No fracture 2. Mild joint space narrowing in the first carpometacarpal joint and in the fir st metacarpophalangeal joint
--- NOTE | ~2025-02-15 | XR_ITS ---
EXAMINATION: XR hand LT 2V DATE: 02/15/2025 11:47 INDICATION: Rheumatoid arthritis involving both hands TECHNIQUE: 3 images of the left hand were obtained. COMPARISON: None. FINDINGS: Bone mineralization is within normal limits. No fracture. No dislocation. There are a few small lucencies in the heads of the first and third metacarpals which are less than a centimeter in size. Moderate narrowing of the first and third metacarpophalangeal joints adjacent soft tissue swelling. No fracture. No dislocation IMPRESSION: 1. No fracture. No dislocation. 2. Moderate narrowing of the first and third metacarpophalangeal joints with adjacent soft tissue swelling. Reviewed, dictated and finalized at location Q. IMPRESSION: 1. No fracture. No dislocation. 2. Moderate narrowing of the first and third metacarpophalangeal joints with ad jacent soft tissue swelling.
== END 2025-02-15 11:09 | disposition home or self-care (01) ==
PROVIDERS: PCP Internal Medicine Rheumatology; Visit Provider Internal Medicine Rheumatology
DX: M05.741 Rheumatoid arthritis with rheumatoid factor of right hand without organ or systems involvement (principal); M05.742 Rheumatoid arthritis with rheumatoid factor of left hand without organ or systems involvement
CPT/HCPCS: 73120; 73620